=== PATIENT | male | born 1940 | race Caucasian/White ===

== ENCOUNTER 2017-04-23 16:15 | Inpatient (IN) | payer OTHER ==
[~2017-04-23] VITALS: Ht 182.9 cm; Wt 97.0 kg
[2017-04-23] MEDS ORDERED: LIDOCAINE/EPINEPHRINE 1% 20 ML VIAL INFIL ONE (16:45)
[2017-04-23 16:59] LABS: BASO % 0.3 %; BASO ABS # 0.02 K/uL (0-0.2); EOS % 2.1 %; EOS ABS # 0.17 K/uL (0-0.5); HEMATOCRIT 39.6 % (42-52); HEMOGLOBIN 13.5 g/dL (14.0-18.0); IG# 0.02 K/uL (0.00-0.02); LYMPH % 20.7 %; LYMPH ABS # 1.65 K/uL (1.2-3.4); MEAN CELL VOLUME 86.8 fL (80-100); MEAN CORPUSCULAR HEMOGLOBIN 29.6 pg (25-34); MEAN CORPUSCULAR HGB CONC 34.1 g/dl (32-36); MEAN PLATELET VOLUME 11.3 fL (7.4-10.4); MONO % 7.7 %; MONO ABS # 0.61 K/uL (0.11-0.59); NEUT % 68.9 %; PLATELET COUNT 219 K/uL (130-400); RED CELL DISTRIBUTION WIDTH CV 13.9 % (11.5-14.5); RED CELL DISTRIBUTION WIDTH SD 43.7 fL (36.4-46.3); WHITE BLOOD COUNT 7.97 K/uL (4.8-10.8)
[2017-04-23] MEDS ORDERED: LEVO100T7 PO (17:00)
[2017-04-23] MEDS ORDERED: ATOR-24 PO (17:00)
[2017-04-23] MEDS ORDERED: LISI-461 PO (17:00)
[2017-04-23] MEDS ORDERED: AMLO-110 PO (17:00)
[2017-04-23] MEDS ORDERED: CLOP1TAB15 PO (17:00)
[2017-04-23] MEDS ORDERED: CARV12.5 PO (17:00)
[2017-04-23 17:12] LABS: PTT PATIENT 28.3 SECONDS (21.0-31.0)
--- NOTE | 2017-04-23 17:21 | EMERGENCY ROOM VISIT NOTE ---
History Report prepared by Froilan: Deepika Esposito Under the Supervision of: Dr. Lonnie Ching D.O. 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 The patient presents to the ED by EMS. He walks with 2 canes. He was unsteady while walking today and fell, striking his head. Per EMS, there was a large amount of blood on the patient's clothes and at the site of the fall. EMS notes a 5 inch laceration to the back of the patient's head. The patient notes that he has been having intermittent pain in his lower back and legs. He states that he has been dragging his right leg. He has had a cough. He denies any chest pain or SOB. He denies any history of NV or heart murmur. He has not had a tetanus shot. 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 A total of 10 systems reviewed and were otherwise negative. Past Medical & Surgical Medical Problems: (1) Diabetes (2) Hypertension (3) Hypothyroidism (4) ICH (intracerebral hemorrhage) Family History Heart disease Stroke Social History Smoking Status: Former Smoker Marital Status: Occupation Status: retired Current/Historical Medications Scheduled Amlodipine (Norvasc), 5 MG PO DAILY Atorvastatin (Lipitor), 40 MG PO HS Carvedilol (Coreg), 12.5 MG PO BID Clopidogrel (Plavix), 75 MG PO DAILY Levothyroxine Sodium (Levothyroxine Sodium), 1 TAB PO DAILY Lisinopril (Zestril), 10 MG PO DAILY Allergies Coded Allergies: Benzodiazepines (Verified Allergy, Unknown, UNNKNOWN, 04/23/17) INFO FROM [facility] Penicillins (Verified Allergy, Unknown, RASH, 04/23/17) Physical Exam Vital Signs Date Time Temp Pulse Resp B/P (MAP) Pulse Ox O2 Delivery O2 Flow Rate FiO2 2/17/18 20:23 79 26 161/87 97 Room Air 04/23/17 19:50 22 04/23/17 19:20 26 04/23/17 18:50 101 25 04/23/17 18:20 89 24 04/23/17 18:15 84 25 04/23/17 16:45 91 28 04/23/17 16:39 90 04/23/17 16:27 36.7 95 27 142/77 98 Room Air 04/23/17 16:21 142/77 Physical Exam GENERAL: Patient is awake, alert, and somewhat anxious appearing. EYES: The conjunctivae are clear. The pupils are round and reactive. EARS, NOSE, MOUTH AND THROAT: The nose is without any evidence of any deformity. Mucous membranes are moist tongue is midline NECK: The neck is nontender and supple. RESPIRATORY: Lung sounds diminished at both bases. There was no tachypnea or conversational dyspnea noted. CARDIOVASCULAR: Irregular rhythm noted to auscultation. There was a systolic murmur noted to auscultation. GASTROINTESTINAL: The abdomen is soft. Bowel sounds are present in all quadrants. Abdomen is nontender BACK: Diffuse lumbar tenderness to palpation. MUSCULOSKELETAL/EXTREMITIES: There is no evidence of gross deformity full range of motion is noted in the hips and shoulders SKIN: There is pedal edema bilaterally. 8 cm vertical laceration in the occipital scalp. NEUROLOGIC: Patient is awake alert and oriented x3 strength is symmetric but diminished. Left sided facial droop. Medical Decision & Procedures ER Provider Diagnostic Interpretation: X-ray results as stated below per interpretation by me and the radiologist. Radiology results as stated below per my review and radiologist interpretation: CHEST ONE VIEW PORTABLE CLINICAL HISTORY: Abdominal pain. Fall. COMPARISON STUDY: No previous studies for comparison. FINDINGS: There is no pneumothorax or pleural effusion. There is no evidence for pulmonary edema. No airspace opacities are present. Moderate cardiomegaly is noted. 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 IMPRESSION: No acute cardiopulmonary findings. Electronically signed by: Rosalio Bello M.D. 04/23/2017 6:26 PM Dictated Date/Time: 04/23/2017 6:[address] OF THE HEAD WITHOUT CONTRAST CLINICAL HISTORY: Fall. COMPARISON STUDY: No previous studies for comparison. TECHNIQUE: Helical axial images of the head were obtained without IV contrast. Automated exposure control was utilized for the study. A dose lowering technique was utilized adhering to the principles of ALARA. FINDINGS: Note is made of a 9 mm focus of acute hemorrhage within the right parietal cortex. No additional sites of intracranial hemorrhage are present. Ventricular system is unremarkable for age. Basilar cisterns are patent. There are no extra-axial collections. White matter hypodensity suggests small vessel disease. There may be a posterior scalp contusion. There is no calvarial fracture. There are old lacunar infarcts within the bilateral basal ganglia. IMPRESSION: 1. Small hemorrhagic contusion within the right parietal lobe measuring 9 mm. A short-term follow-up head CT in 12 to 24 hours is recommended. 2. No calvarial fracture. Electronically signed by: Rosalio Bello M.D. 04/23/2017 5:41 PM Dictated Date/Time: 04/23/2017 5:[address] OF THE CERVICAL SPINE WITHOUT CONTRAST CLINICAL HISTORY: Fall. COMPARISON STUDY: No previous studies for comparison. TECHNIQUE: Helical axial images of the cervical spine were obtained without IV contrast. Sagittal and coronal reconstructions were viewed. A dose lowering technique was utilized adhering to the principles of ALARA. FINDINGS: Craniocervical junction is intact. There is no acute cervical spine fracture. There is mild leftward curvature of the cervical spine which may be positional. There is moderate multilevel degenerative disc disease and facet arthrosis. There is no prevertebral edema. IMPRESSION: No acute cervical spine fracture or subluxation. Electronically signed by: Rosalio Bello M.D. 04/23/2017 5:43 PM Dictated Date/Time: 04/23/2017 5:[address] OF THE ABDOMEN AND PELVIS WITHOUT CONTRAST CLINICAL HISTORY: Fall. Low back pain. COMPARISON STUDY: No previous studies for comparison. TECHNIQUE: Axial images of the abdomen and pelvis were obtained without IV contrast. Images were reviewed in the axial, sagittal, and coronal planes. A dose lowering technique was utilized adhering to the principles of ALARA. FINDINGS: Visualized portions of the lower chest demonstrate moderate cardiomegaly and moderate dilatation of visualized portions of the ascending aorta that measures up to 4.5 cm. No hemoperitoneum or pneumoperitoneum is present. Evaluation of the abdomen and pelvis is suboptimal on this unenhanced exam. A few water attenuation left renal lesions likely reflect cysts. There may be a 3 mm nonobstructing right renal calculus. There is no evidence for traumatic injury to the liver, spleen, adrenal glands or pancreas on this unenhanced exam. Caliber small large bowel are normal. There is no free fluid. Prostate is moderately enlarged. There is a right-sided hydrocele. No acute lumbar spine or pelvic fractures identified. IMPRESSION: 1. No acute traumatic findings within the abdomen or pelvis on unenhanced exam. 2. Moderate dilatation of visualized portions of the ascending aorta, measuring up to 4.5 cm. Moderate cardiomegaly. Electronically signed by: Rosalio Bello M.D. 04/23/2017 5:54 PM Dictated Date/Time: 04/23/2017 5:47 PM Laboratory Results Test 04/23/17 16:30 04/23/17 18:30 Prothrombin Time 10.9 SECONDS (9.0-12.0) Prothromb Time International Ratio 1.0 (0.9-1.1) Activated Partial Thromboplast Time 28.3 SECONDS (21.0-31.0) Partial Thromboplastin Ratio 1.1 Magnesium Level 2.0 mg/dl (1.8-2.4) Total Bilirubin 0.8 mg/dl (0.2-1) Direct Bilirubin 0.2 mg/dl (0-0.2) Aspartate Amino Transf (AST/SGOT) 19 U/L (15-37) Alanine Aminotransferase (ALT/SGPT) 19 U/L (12-78) Alkaline Phosphatase 81 U/L (45-117) Total Creatine Kinase 115 U/L (39-308) Creatine Kinase MB 1.8 ng/ml (0.5-3.6) Creatine Kinase MB Ratio 1.6 (0-3.0) Pro-B-Type Natriuretic Peptide 665 pg/ml (0-1800) Total Protein 7.8 gm/dl (6.4-8.2) Albumin 3.9 gm/dl (3.4-5.0) Lipase 82 U/L (73-393) Thyroid Stimulating Hormone (TSH) 4.700 uIu/ml (0.300-4.500) Free Thyroxine 1.15 ng/dl (0.80-1.60) Total Triiodothyronine 0.82 ng/ml (0.60-1.81) Laboratory results per my review. Procedure Location: Scalp Total length: 8 cm Complexity: Simple Verbal consent was obtained after the risks and benefits were explained, including but not limited to bleeding, scarring, infection, pain, and bone/ nerve damage. At this time, the risks of the procedure are less than the risks of NOT performing the procedure. A time out was taken and the correct patient and site identified. The scalp was prepped with betadine. The target area was anesthetized with 8 ml of 1% lidocaine without epinephrine. Copious irrigation was performed using saline. The skin was re-prepped with betadine, the hair cleared from the wound, and a sterile field set. The wound was explored for foreign bodies and none found. Debridement was not performed. The wound edges were approximated using 15 surgical tommy in the standard fashion. Hemostasis and excellent approximation was achieved. Antibacterial ointment and a sterile dressing applied. Detailed wound care instructions and signs and symptoms of infection reviewed with the patient. No complications and the patient tolerated the procedure well. ECG Per My Interpretation Indication: other (fall) Rate (beats per minute): 95 Rhythm: atrial fibrillation Findings: other (no PVC, LVH noted by voltage criteria) Comparison ECG Date: no prior available ED Course 1626: The patient was evaluated in room C8. A complete history and physical examination were performed. 1725: The laceration was repaired according to the procedure note above. 1855: Upon reevaluation, the patient is resting comfortably. I discussed results and treatment plan with him. He verbalizes agreement and understanding. The patient will be evaluated for further management and care. 7: [facility] He requests that I speak with neurosurgery in [place]. 1949: I discussed the patient's case [place]. Michelle, [facility] [place]. He thinks the patient should go to a trauma center. 1958: I reevaluated the patient. He does not want to be transferred. 2027: I discussed the patient's case [facility] The patient will be evaluated for further management. Medical Decision Prior records/ancillary studies reviewed. Triage Nursing notes reviewed. Additional history obtained from EMS. The patient's history was concerning for traumatic injury Differential diagnosis: Etiologies such as fracture, dislocation, intra-abdominal, pneumothorax, intrathoracic , intracranial, neurologic, as well as other traumatic pathologies were entertained. The patient is a 76-year-old male who presented to the emergency department by ambulance after a fall. The patient has a very concerning history and that his recently . The patient does see a primary care physician but only sees the primary care physician intermittently and does not take his medications as he is prescribed. He is prescribed Plavix but states he has not taken it in over 2-3 days. The patient appears to be in atrial fibrillation at this time. I am unsure if he is aware of this or if this is new. I discussed the patient's laboratory and radiographic studies with him. He does have significant difficulty ambulating. He was found to have a cerebral contusion. I discussed his case with the on-call [facility] hospitalist I also discussed it with the [facility] neurosurgeon. At this time the neurosurgeon requested that I transfer the patient for formal trauma workup at the patient himself does not wish to be transferred at this time. [facility] in the emergency department for further management and disposition. The patient also appears to have significant difficulty ambulating at this time. I do feel that he has some baseline neurologic deficits but at this time it is difficult to determine if he also had a new CVA given his atrial fibrillation. Head Trauma GCS Score: 15 Medication Reconcilliation Current Medication List: was personally reviewed by me Consults Time Called: 1921 Consulting Physician: Dr. Koo [facility] Returned Call: 1926 I discussed the patient's case with him. He requests that I speak with neurosurgery in [place]. Additional Consults: Time Called: 1929 Consulted Physician: Dr. Michelle, [facility] [place] Returned Call: 1949 Additional Comments: I discussed the patient's case with him. He thinks the patient should go to a trauma center. Time Called: 2019 Consulted Physician: Dr. Koo [facility] Returned Call: 2027 Additional Comments: I discussed the patient's case with him. The patient will be evaluated for further management. Impression Primary Impression: Fall Additional Impressions: Scalp laceration Head injury Cerebral contusion Atrial fibrillation Scribe Attestation The scribe's documentation has been prepared under my direction and personally reviewed by me in its entirety. I confirm that the note above accurately reflects all work, treatment, procedures, and medical decision making performed by me. Departure Information Dispostion Being Evaluated By Hospitalist Referrals No Doctor, Assigned (PCP) Patient Instructions My [facility] Problem Qualifiers Primary Impression: Fall Encounter type: initial encounter Qualified Codes: W19.XXXA - Unspecified fall, initial encounter Additional Impressions: Scalp laceration Encounter type: initial encounter Qualified Codes: S01.01XA - Laceration without foreign body of scalp, initial encounter Head injury Encounter type: initial encounter Qualified Codes: S09.90XA - Unspecified injury of head, initial encounter Cerebral contusion Encounter type: initial encounter Laterality: right Loss of consciousness presence/duration: with LOC of unspecified duration Qualified Codes: S06.319A - Contusion and laceration of right cerebrum with loss of consciousness of unspecified duration, initial encounter Atrial fibrillation Atrial fibrillation type: unspecified Qualified Codes: I48.91 - Unspecified atrial fibrillation
[2017-04-23 17:23] LABS: ALBUMIN 3.9 gm/dl (3.4-5.0); CALCIUM 9.5 mg/dl (8.5-10.1); CREATININE 0.91 mg/dl (0.60-1.40); POTASSIUM 3.8 mmol/L (3.5-5.1)
[2017-04-23 17:30] LABS: CKMB 1.8 ng/ml (0.5-3.6); TOTAL PROTEIN 7.8 gm/dl (6.4-8.2)
--- NOTE | 2017-04-23 17:42 | DIAGNOSTIC IMAGING REPORT ---
CT OF THE HEAD WITHOUT CONTRAST CLINICAL HISTORY: Fall. COMPARISON STUDY: No previous studies for comparison. TECHNIQUE: Helical axial images of the head were obtained without IV contrast. Automated exposure control was utilized for the study. A dose lowering technique was utilized adhering to the principles of ALARA. FINDINGS: Note is made of a 9 mm focus of acute hemorrhage within the right parietal cortex. No additional sites of intracranial hemorrhage are present. Ventricular system is unremarkable for age. Basilar cisterns are patent. There are no extra-axial collections. White matter hypodensity suggests small vessel disease. There may be a posterior scalp contusion. There is no calvarial fracture. There are old lacunar infarcts within the bilateral basal ganglia. IMPRESSION: 1. Small hemorrhagic contusion within the right parietal lobe measuring 9 mm. A short-term follow-up head CT in 12 to 24 hours is recommended. 2. No calvarial fracture. Electronically signed by: Rosalio Bello M.D. 04/23/2017 5:41 PM Dictated Date/Time: 04/23/2017 5:37 PM
--- NOTE | 2017-04-23 17:45 | DIAGNOSTIC IMAGING REPORT ---
CT OF THE CERVICAL SPINE WITHOUT CONTRAST CLINICAL HISTORY: Fall. COMPARISON STUDY: No previous studies for comparison. TECHNIQUE: Helical axial images of the cervical spine were obtained without IV contrast. Sagittal and coronal reconstructions were viewed. A dose lowering technique was utilized adhering to the principles of ALARA. FINDINGS: Craniocervical junction is intact. There is no acute cervical spine fracture. There is mild leftward curvature of the cervical spine which may be positional. There is moderate multilevel degenerative disc disease and facet arthrosis. There is no prevertebral edema. IMPRESSION: No acute cervical spine fracture or subluxation. Electronically signed by: Rosalio Bello M.D. 04/23/2017 5:43 PM Dictated Date/Time: 04/23/2017 5:41 PM
--- NOTE | 2017-04-23 17:56 | DIAGNOSTIC IMAGING REPORT ---
CT OF THE ABDOMEN AND PELVIS WITHOUT CONTRAST CLINICAL HISTORY: Fall. Low back pain. COMPARISON STUDY: No previous studies for comparison. TECHNIQUE: Axial images of the abdomen and pelvis were obtained without IV contrast. Images were reviewed in the axial, sagittal, and coronal planes. A dose lowering technique was utilized adhering to the principles of ALARA. FINDINGS: Visualized portions of the lower chest demonstrate moderate cardiomegaly and moderate dilatation of visualized portions of the ascending aorta that measures up to 4.5 cm. No hemoperitoneum or pneumoperitoneum is present. Evaluation of the abdomen and pelvis is suboptimal on this unenhanced exam. A few water attenuation left renal lesions likely reflect cysts. There may be a 3 mm nonobstructing right renal calculus. There is no evidence for traumatic injury to the liver, spleen, adrenal glands or pancreas on this unenhanced exam. Caliber small large bowel are normal. There is no free fluid. Prostate is moderately enlarged. There is a right-sided hydrocele. No acute lumbar spine or pelvic fractures identified. IMPRESSION: 1. No acute traumatic findings within the abdomen or pelvis on unenhanced exam. 2. Moderate dilatation of visualized portions of the ascending aorta, measuring up to 4.5 cm. Moderate cardiomegaly. Electronically signed by: Rosalio Bello M.D. 04/23/2017 5:54 PM Dictated Date/Time: 04/23/2017 5:47 PM
--- NOTE | 2017-04-23 18:27 | DIAGNOSTIC IMAGING REPORT ---
CHEST ONE VIEW PORTABLE CLINICAL HISTORY: Abdominal pain. Fall. COMPARISON STUDY: No previous studies for comparison. FINDINGS: There is no pneumothorax or pleural effusion. There is no evidence for pulmonary edema. No airspace opacities are present. Moderate cardiomegaly is noted. 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 IMPRESSION: No acute cardiopulmonary findings. Electronically signed by: Rosalio Bello M.D. 04/23/2017 6:26 PM Dictated Date/Time: 04/23/2017 6:25 PM
[2017-04-23] MEDS ORDERED: TRAMADOL HCL 50 MG TAB PO PRN (21:15)
[2017-04-23] MEDS ORDERED: ACETAMINOPHEN 325 MG TAB PO PRN (21:15)
[2017-04-23] MEDS ORDERED: MoRPHine SULFATE 2 MG/ML CARP IV PRN (21:15)
[2017-04-23] MEDS ORDERED: NITROGLYCERIN 0.4 MG SL PER TAB CHARGE SL PRN (21:15)
[2017-04-23] MEDS ORDERED: PHARMACIST DISCHARGE MED REC CONSULT PRN (21:15)
[2017-04-23] MEDS ORDERED: PROCHLORPERAZINE INJ 5 MG in SYRINGE 4 ML IV PRN (21:15)
[2017-04-23 21:30] VITALS: BP 175/93; PULSE 90; TEMP 36.9; O2SAT 99
[2017-04-23] MEDS ORDERED: POTASSIUM CHLORIDE 10 MEQ TABCR PO STA (21:30)
[2017-04-23] MEDS ORDERED: METOPROLOL TARTRATE 25 MG TAB PO ONE (21:33)
[2017-04-23] MEDS ORDERED: ATORVASTATIN 40 MG TAB PO ONE (21:35)
[2017-04-23] MEDS ORDERED: NSS + 20MEQ KCL 1000ML 1,000 ML IV SCH (22:00)
[2017-04-23 22:52] VITALS: BP 175/93; PULSE 90; TEMP 36.9; O2SAT 95; Ht 182.9 cm; Wt 97.0 kg
--- NOTE | 2017-04-23 22:56 | HISTORY & PHYSICAL EXAMINATION ---
DATE OF ADMISSION: 04/23/2017 PRIMARY CARE DOCTOR: Lydia Suarez MD. CHIEF COMPLAINT: Fall. HISTORY OF PRESENT ILLNESS: History obtained from patient and records. 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 This morning patient woke up with R leg weakness causing him to drag his heavy right leg. He subsequently had a fall hitting his head. No syncope, no LOC. No chest pain, no shortness of breath. Unable to take his pills the last few days having ran out of them. Patient brought to the Emergency Room. Scalp wound repaired. CAT scan of the head showed small hemorrhagic contusion in right parietal lobe measuring 9 mm. [place] [facility] [place]. At the Emergency Room, patient was noted to be in AFib on the monitor. MEDICAL HISTORY: As above. February 2012, the patient admitted in [place] for a subacute stroke. Prior to transfer was intubated at [facility] for altered mental status. MRI [place] [facility] [place] showed small focus of restricted diffusion in the right frontal lobe, suspicious infarct in the inferior right occipital lobe. SURGERIES: He has had cataract surgery, mastoid surgery. HOME MEDICATIONS: Include amlodipine, atorvastatin, Coreg, Plavix, levothyroxine, lisinopril. ALLERGIES: BENZODIAZEPINES, PENICILLIN. FAMILY HISTORY: Heart disease, stroke. PERSONAL AND SOCIAL HISTORY: Past tobacco abuse. No chronic intake of alcoholic beverages. 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 Recent . REVIEW OF SYSTEMS: As per HPI. All 10 systems reviewed. All other ROS negative. PHYSICAL EXAMINATION: VITAL SIGNS: Blood pressure was noted to be 179/93, pulse rate 90, RR 24, temperature 36.7, sats 98 on room air. GENERAL: Noted to be obese, comfortable, no respiratory distress, dysarthria chronic. SKIN: Pallor, warm. HEENT: Dressing on the posterior scalp. Pale palpebral conjuctivae. Facial asymmetry, left (chronic) NECK: Supple, nontender. LUNGS: Decreased breath sounds. No tenderness. HEART: RRR, palpable LE pulses. ABDOMEN: Soft, nontender. EXTREMITIES: No edema, no tenderness. No gross deformities. NEUROLOGIC: Coherent. Chronic dysarthria as per patient, Left facial asymmetry. Decreased MMTs right lower extremity 3/5, left 4/5. Gait and stance not assessed. LABORATORY DATA: Hemoglobin 13.5, hematocrit 39.6, white cell count 7.97, platelets 219 . Sodium 139, potassium 3.8, chloride 101, CO2 25, BUN 40, creatinine 0.9, glucose 107. Troponin was 0.112. Chest x-ray, no acute cardiopulmonary findings. CT abdomen and pelvis, cardiomegaly, moderate dilatation of ascending aorta 4.[address], no acute cervical spine fracture or subluxation. EKG as per my interpretation rate 75, NSR, PACs,, T-wave flattening inferior leads ASSESSMENT: 1. Traumatic intracranial hemorrhage secondary to fall 2. right lower extremity weakness preceding fall/head trauma possible recurrent cerebrovascular accident possible cardioembolic phenomenon with new onset atrial fibrillation. Patient also unable to take home Plavix the last few days. 2. 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 3. Hx PVD 4. 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 Prediabetes as per records. 6. Past tobacco abuse. 7. Anemia, possibly from blood loss following traumatic scalp injury. PLAN: PCU, neuro checks MRI/MRA of the brain RE RLE weakness possible recurrent CVA. Antiplatelet, anticoagulation for secondary stroke prevention unfortunately precluded by intracranial hemorrhage for now. May need Neurology eval, additional stroke workup pending MRI results Follow up CT of the head for intracranial hemorrhage. (Patient not interested in transferring to tertiary care center for Neurosurgical evaluation in any circumstance even if it may result in his demise.) Low dose Lopressor for now for rate control for A. fib (Hold patient's Coreg for now for its greater antihypertensive effect given need to optimize cerebral perfusion for a possible CVA.) TTE, Cardio consult RE new onset A. fib PT OT eval DVT prophylaxis, SCDs RE ICH DNR. MTDD
[2017-04-23 23:23] VITALS: BP 138/82; PULSE 93; TEMP 37.1; O2SAT 97
[2017-04-24] VITALS (9 sets, daily range): BP systolic 129–142; BP diastolic 69–78; PULSE 71–82; TEMP 36.5–37.1; O2SAT 95–99
[2017-04-24 00:53] LABS: HEMATOCRIT 38.8 % (42-52); HEMOGLOBIN 13.3 g/dL (14.0-18.0); RETIC COUNT % 0.7 % (0.5-2.0)
[2017-04-24 05:53] LABS: BASO % 0.2 %; BASO ABS # 0.02 K/uL (0-0.2); EOS % 0.3 %; EOS ABS # 0.03 K/uL (0-0.5); HEMOGLOBIN 12.2 g/dL (14.0-18.0); IG# 0.02 K/uL (0.00-0.02); LYMPH % 20.9 %; LYMPH ABS # 1.95 K/uL (1.2-3.4); MEAN CELL VOLUME 85.9 fL (80-100); MEAN CORPUSCULAR HEMOGLOBIN 29.1 pg (25-34); MEAN CORPUSCULAR HGB CONC 33.9 g/dl (32-36); MEAN PLATELET VOLUME 10.5 fL (7.4-10.4); MONO % 6.4 %; NEUT ABS # 6.69 K/uL (1.4-6.5); PLATELET COUNT 202 K/uL (130-400); RED CELL DISTRIBUTION WIDTH CV 13.9 % (11.5-14.5); WHITE BLOOD COUNT 9.31 K/uL (4.8-10.8)
[2017-04-24] MEDS: LEVOTHYROXINE 100 MCG TAB PO SCH (06:04)
[2017-04-24 06:23] LABS: CALCIUM 9.1 mg/dl (8.5-10.1); CREATININE 0.68 mg/dl (0.60-1.40); POTASSIUM 4.1 mmol/L (3.5-5.1)
[2017-04-24] MEDS ORDERED: PNEUMOCOCCAL ADMINISTRATION CHARGE ONE (06:45)
[2017-04-24] MEDS ORDERED: PNEUMOCOCCAL POLYSACCHARIDES 25 MCG/0.5 ML VIAL/SYR IM. ONE (06:45)
[2017-04-24] MEDS ORDERED: METOPROLOL TARTRATE 25 MG TAB PO SCH (09:00)
--- NOTE | 2017-04-24 11:26 | ECHOCARDIOGRAM REPORT ---
*NOTICE TO RECEIVING [employer] This information is strictly Confidential and protected under [place] law. [place] law prohibits you from making any further disclosure of this information unless further disclosure is expressly permitted by the written consent of the person to whom it pertains or is authorized by law. A general authorization for the release of medical or other information is not sufficient for this purpose. Hospital accepts no responsibility if the information is made available to any other person, INCLUDING THE PATIENT. Interpretation Summary * Name: FREDY MARTINEZ Study Date: 04/24/2017 09:32 AM BP: 141/78 mmHg * Patient Location: HR: 76 * : 1940 (M/d/yyyy) Gender: Male Height: 72 in * Age: 76 yrs Ethnicity: CA Weight: 222 lb * Ordering Physician: Joe Koo * Referring Physician: UNKNOWN * Performed By: Joe Ramos RDCS * R * Reason For Study: A-FIB * BSA: 2.2 m2 * -- Conclusions -- * The left ventricle is normal in size. * There is moderate concentric left ventricular hypertrophy. * The basal septum is thickened and angulated consistent with sigmoid septum. * Left ventricular systolic function is normal. * The left ventricular wall motion is normal. * Ejection Fraction = 60-65%. * Grade I diastolic dysfunction, (abnormal relaxation pattern). * Aortic valve sclerosis moderate, without significant aortic valvular stenosis. * Trace aortic regurgitation. * There is mild mitral regurgitation. * The left atrium is moderately dilated. Procedure Details * A complete two-dimensional transthoracic echocardiogram was performed (2D, M-mode, Doppler and color flow Doppler). * The study was technically difficult, but visualization was adequate with the administration of Definity ultrasound contrast. * A contrast injection of Definity was performed to improve assessment of LV function. * Contrast was injected into an intravenous site in the left arm. * One vial of Definity ultrasound contrast was diluted in normal saline to a total volume of 10 ml. A total of '3' ml of solution was administered during imaging. * Lot # [id number] of Definity utilized for procedure. * Expiration date . * The attending nurse who injected the contrast agent was Nurse, RN. Left Ventricle * The left ventricle is normal in size. * There is moderate concentric left ventricular hypertrophy. * The basal septum is thickened and angulated consistent with sigmoid septum. * Ejection Fraction = 60-65%. * Left ventricular systolic function is normal. * The left ventricular wall motion is normal. Right Ventricle * The right ventricle is normal in size and function. Atria * The left atrium is moderately dilated. * Right atrial size is normal. * No ASD detected; PFO is not assessed. Mitral Valve * The mitral valve anatomy is normal. * There is no mitral valve stenosis. * There is mild mitral regurgitation. Tricuspid Valve * The tricuspid valve is not well visualized, but is grossly normal. * There is no tricuspid stenosis. * There is trace tricuspid regurgitation. * Doppler findings do not suggest pulmonary hypertension. Aortic Valve * The aortic valve is trileaflet. * Aortic valve sclerosis moderate, without significant aortic valvular stenosis. * Trace aortic regurgitation. Pulmonic Valve * The pulmonic valve is not well visualized. Great Vessels * The aortic root is normal size. Pericardium/Pleural * There is no pericardial effusion. Great Vessels * Normal inferior vena cava diameter and respiratory variation suggests normal central venous pressure. Left Ventricular Diastolic Function * Grade I diastolic dysfunction, (abnormal relaxation pattern). MMode 2D Measurements and Calculations IVSd 1.2 cm IVSs 1.8 cm LVIDd 4.8 cm LVIDs 2.8 cm LVPWd 1.2 cm LVPWs 1.8 cm IVS/LVPW 1.0 FS 41.2 % EDV(Teich) 108.9 ml ESV(Teich) 30.6 ml EF(Teich) 71.9 % EDV(cubed) 112.4 ml ESV(cubed) 22.9 ml EF(cubed) 79.6 % % IVS thick 56.3 % % LVPW thick 59.6 % LV mass(C)d 211.0 grams LV mass(C)dI 94.8 grams/m\S\2 LV mass(C)s 210.9 grams LV mass(C)sI 94.7 grams/m\S\2 SV(Teich) 78.3 ml SI(Teich) 35.2 ml/m\S\2 SV(cubed) 89.5 ml SI(cubed) 40.2 ml/m\S\2 EPSS 0.55 cm Ao root diam 3.3 cm Ao root area 8.4 cm\S\2 ACS 2.4 cm LA dimension 4.9 cm asc Aorta Diam 3.8 cm LA/Ao 1.5 LVOT diam 2.2 cm LVOT area 3.7 cm\S\2 LVAd ap4 29.8 cm\S\2 LVLd ap4 7.5 cm EDV(MOD-sp4) 99.5 ml EDV(sp4-el) 100.7 ml LVAs ap4 16.0 cm\S\2 LVLs ap4 6.8 cm ESV(MOD-sp4) 31.4 ml ESV(sp4-el) 32.3 ml EF(MOD-sp4) 68.5 % EF(sp4-el) 68.0 % LVAd ap2 34.7 cm\S\2 LVLd ap2 8.7 cm EDV(MOD-sp2) 115.4 ml EDV(sp2-el) 117.5 ml LVAs ap2 18.5 cm\S\2 LVLs ap2 7.9 cm ESV(MOD-sp2) 36.0 ml ESV(sp2-el) 37.1 ml EF(MOD-sp2) 68.8 % EF(sp2-el) 68.4 % LVLd %diff 13.8 % EDV(MOD-bp) 114.7 ml LVLs %diff 14.1 % ESV(MOD-bp) 35.6 ml EF(MOD-bp) 69.0 % SV(MOD-sp4) 68.1 ml SI(MOD-sp4) 30.6 ml/m\S\2 SV(MOD-sp2) 79.4 ml SI(MOD-sp2) 35.7 ml/m\S\2 SV(MOD-bp) 79.2 ml SI(MOD-bp) 35.6 ml/m\S\2 SV(sp4-el) 68.5 ml SI(sp4-el) 30.8 ml/m\S\2 SV(sp2-el) 80.4 ml SI(sp2-el) 36.1 ml/m\S\2 Doppler Measurements and Calculations MV E max flynn 87.2 cm/sec MV A max flynn 112.7 cm/sec MV E/A 0.77 MV dec time 0.23 sec Ao V2 max 133.3 cm/sec Ao max PG 7.1 mmHg Ao max PG (full) 2.3 mmHg SHANEKA(V,A) 3.0 cm\S\2 SHANEKA(V,D) 3.0 cm\S\2 LV V1 max PG 4.8 mmHg LV V1 max 109.7 cm/sec PA V2 max 107.8 cm/sec PA max PG 4.7 mmHg
[2017-04-24] MEDS ORDERED: CARVEDILOL 12.5 MG TAB PO ONE (11:28)
--- NOTE | 2017-04-24 11:40 | DIAGNOSTIC IMAGING REPORT ---
CT OF THE HEAD WITHOUT CONTRAST CLINICAL HISTORY: Follow up intracranial hemorrhage. COMPARISON STUDY: Head CT April 23, 2017. CT DOSE: 614.27 mGy.cm TECHNIQUE: Helical axial images of the head were obtained without IV contrast. Automated exposure control was utilized for the study. A dose lowering technique was utilized adhering to the principles of ALARA. FINDINGS: A 9 mm focus of hemorrhage within the right parietal lobe is unchanged since exam of April 23, 2017. No additional sites of intracranial hemorrhage are present. Ventricular system is unremarkable for age. Basilar cisterns are patent. There are no extra-axial collections. White matter hypodensity suggests small vessel disease. There are bilateral basal ganglia lacunar infarcts. A posterior scalp contusion and laceration with skin tommy is noted. There is no calvarial fracture. IMPRESSION: 1. No change in a 9 mm hemorrhagic focus within the right parietal lobe since prior head CT. This likely reflects a hemorrhagic contusion given the history of trauma. Imaging follow up to ensure resolution is recommended. 2. Posterior scalp contusion and laceration. No calvarial fracture. Electronically signed by: Rosalio Bello M.D. 04/24/2017 11:39 AM Dictated Date/Time: 04/24/2017 11:36 AM
--- NOTE | 2017-04-24 11:45 | DIAGNOSTIC IMAGING REPORT ---
MRI OF THE BRAIN WITHOUT CONTRAST CLINICAL HISTORY: Stroke COMPARISON STUDY: Head CT April 23, 2017. TECHNIQUE: Utilizing a 1.5 Danielle magnet and dedicated coil, multiplanar, multiecho imaging of the brain was performed without IV contrast. FINDINGS: Note is made of a small focus of restricted diffusion within the periventricular left frontal lobe shown on axial image 17 and 18 of the diffusion-weighted sequence. This suggests an acute infarct. No additional sites of acute infarction are present. There are old bilateral basal ganglia lacunar infarcts. Ventricular system dilatation is likely due to atrophy. The basilar cisterns are patent. There are no extra axial collections. A 9 mm right parietal lobe focus of signal abnormality with hypointensity on the gradient echo image corresponds to the small focus of hemorrhage on head CT. No additional sites of intracranial hemorrhage are present. Orbits are unremarkable. White matter T2 hypertense foci suggest extensive small vessel disease. IMPRESSION: 1. Small acute infarct within the periventricular left frontal lobe. No mass effect. 2. 9 mm right parietal lobe focus of signal abnormality which corresponds to the focus of hemorrhage on prior head CT. This favors a small hemorrhagic contusion. Imaging follow up to ensure resolution is recommended. Electronically signed by: Rosalio Bello M.D. 04/24/2017 11:43 AM Dictated Date/Time: 04/24/2017 11:39 AM
--- NOTE | 2017-04-24 13:17 | CARDIOLOGY CONSULTATION ---
DATE OF CONSULTATION: 04/24/2017 REFERRING PHYSICIANS: Joe Santa MD and Norberto Mcgowan DO. PRIMARY CARE PHYSICIAN: Lydia Suarez MD. INDICATIONS: Intracranial hemorrhage, atrial arrhythmia. HISTORY OF PRESENT ILLNESS: The patient is a 76-year-old male without prior history of cardiac disease. His past medical history per review of records and discussion with the patient is notable for longstanding hypertension, hypothyroidism, past history of possible TIA or stroke with basilar artery stenosis identified in 2011, on chronic antiplatelet therapy with Plavix; type 2 diabetes mellitus, diet controlled; chronic left facial palsy, dyslipidemia. The patient presents this admission by his description in records having suffered multiple falls over a period of 3-4 days. He usually walks with 2 canes and felt the right leg may have been weak, fell striking his head. A 5-inch significant laceration to the occiput. The patient notes no specific syncope. Notes no chest pain. Notes no tachypalpitations that he has been aware of. Denies orthopnea, PND, or peripheral edema. Appetite and weight have been stable. He has not been aware of any bleeding difficulties, melena, or hematochezia. He does note that he ran out of antiplatelet therapy due to inability to obtain meds and switch on pharmacy provider. He notes no recent fevers, chills, or infections. CT scan evaluation on admission reveals small hemorrhagic contusion within the right parietal lobe. Monitor strips reviewed from ER visit demonstrated intermittent atrial tachycardia, distinct atrial fibrillation by my observation and review with monitor technicians reveals no distinct atrial fibrillation. He does have frequent atrial and ventricular ectopy as well as one 4-beat run of nonsustained ventricular tachycardia this morning. REVIEW OF SYSTEMS: Otherwise negative. ALLERGIES: BENZODIAZEPINE AND PENICILLIN. MEDICATIONS: Prior to hospitalization, amlodipine 5 mg p.o. daily, atorvastatin 40 mg p.o. daily, carvedilol 12.5 mg b.i.d., clopidogrel 75 mg p.o. daily, levothyroxine 100 mcg p.o. daily, and lisinopril 10 mg p.o. daily. PAST SURGICAL HISTORY: Notable for prior mastoidectomy as a child, past cataract extraction. FAMILY HISTORY: Notable for longevity in mother. Brother and sister with history of ischemic heart disease. 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 He is a nonsmoker since 1984. He uses occasional alcoholic beverages. PHYSICAL EXAMINATION: VITAL SIGNS: Heart rate is 82, blood pressure is 138/73. HEENT: Normocephalic. There is a stapled occipital laceration. Nares without discharge. Throat was clear. NECK: There is no jugular venous distention. LUNGS: Reveal mildly diminished breath sounds, but are predominantly clear. CARDIOVASCULAR: Regular with atrial ectopic beats audible with grade 1/6 systolic murmurs. No diastolic murmur. ABDOMEN: Obese, soft, nontender. There is no palpable hepatosplenomegaly. There is no hepatojugular reflux. EXTREMITIES: Without cyanosis or clubbing. There is no peripheral edema. There are intact distal pulses at 2/4. DIAGNOSTIC DATA: EKG on ER presentation revealed sinus rhythm, rate of 76 with frequent atrial ectopic beats. Second EKG revealed similar findings and sinus tachycardia with frequent atrial ectopic beats, rare ventricular ectopic beats. EKG this morning reveals sinus rhythm with atrial complexes with a rate of 76. Review of telemetry reveals no overt atrial fibrillation with sinus mechanism and frequent atrial ectopy and occasional ventricular ectopic beats aware, one 4-beat run of ventricular tachycardia earlier this morning. LABORATORY STUDIES: Sodium is 138, potassium is 4.1, chloride is 105, bicarbonate is 26, BUN is 13, and creatinine is 0.68. Cholesterol was 162 with an LDL of 112, HDL 33. TSH is 4.7 with T4 level of 1.15. White cell count is 9.3, hemoglobin is 12.2, and hematocrit is 36.0. Chest x-ray on presentation revealed no infiltrate or edema. Head CT as described demonstrated focal hemorrhagic contusion, right parietal lobe. MRI is pending. IMPRESSION: A 76-year-old male with a history of longstanding hypertension, past stroke in 2011 with basal artery stenosis identified at that time per report, has been off medications intermittently per his own description due to difficulty obtaining meds with change in pharmacy provider, presents now after a fall and hemorrhagic contusion. Telemetry does not reveal distinct atrial fibrillation, though he remains at risk for such. Echocardiogram today demonstrates preserved left ventricular function. Troponins are elevated, but flat, likely reflect the patient's acute injury. Review of MRI, continue to maintain telemetry. Anticoagulation is currently contraindicated and no overt indications for doing so in the absence of atrial fibrillation on review of records. Although we will continue to follow the patient, we would recommend discontinuing ordered metoprolol and returning to usual medication of carvedilol. First dose ordered this morning. Amlodipine was held on admission used for hypertension. I agree withholding this medication as clinical course proceeds. Await MRI results and Neurology input regarding timing of resuming Plavix. MTDD
--- NOTE | 2017-04-24 13:24 | DIAGNOSTIC IMAGING REPORT ---
MRA OF THE INTRACRANIAL CIRCULATION WITHOUT CONTRAST CLINICAL HISTORY: Stroke - Attention to [facility] COMPARISON STUDY: None. TECHNIQUE: Utilizing a 1.5 Danielle magnet and 3-D [id number] technique, unenhanced MRA of the intracranial circulation was obtained. FINDINGS: The bilateral M1, M2, A1 and A2 segments are patent. There is no abrupt vessel cut off. There is persistence of the left posterior cerebral artery. No intracranial aneurysm is slight identified. There is moderate to severe stenosis of the mid basilar artery. No additional significant stenoses are identified. The right vertebral artery likely ends in PICA. IMPRESSION: 1. No intracranial aneurysm or abrupt vessel cut off. 2. Moderate to severe stenosis of the mid basilar artery. 3. persistence of the left posterior cerebral artery. Electronically signed by: Rosalio Bello M.D. 04/24/2017 1:23 PM Dictated Date/Time: 04/24/2017 1:20 PM
--- NOTE | 2017-04-24 14:52 | NEUROLOGY CONSULTATION ---
DATE OF CONSULTATION: 04/24/2017 REASON FOR CONSULTATION: Stroke and intracranial hemorrhage. The patient as well as the medical record service is the chief historian. He is a 76-year-old male with hypertension and hyperlipidemia who had a fall 1 day prior to admission. Admission was on 04/23/2017. The patient indicated on the day of admission, he became unsteady, fell and struck his head. There was a large amount of scalp bleeding, but the patient did not contact 911 until the following day because of ongoing soft tissue bleeding. He apparently falls intermittently. He attributed this fall to a sense of weakness in the right lower extremity. He denied any other neurologic symptoms. In the weeks leading up to this event, the patient's medication use has been inconsistent. He reports he takes Norvasc, Lipitor, Coreg, Plavix, levothyroxine, and Zestril at home as well as p.r.n. [id number] pain medications. He had been out of medications for about 2 or 3 weeks, but he was probably continuing to take his pain reliever. Since admission, he notes that there is persistent weakness of the right lower extremity. He typically has a mild frontal headache each morning. This appears unchanged. He denies a prior history of stroke or transient ischemic attack. It sounds as if there have been some very difficult social issues in the past. His 14 weeks ago. He is at odds with a stepson and his [id number] within the last several weeks. The patient makes it sound as if he has no additional help in the home. 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 His prior medical history is notable for hypertension and prediabetes. He is said to have had a stroke in the past, peripheral vascular disease, hypothyroidism, remote tobacco abuse. For further details, in February 2012, the patient was admitted to [facility] for subacute stroke. There is a small focus restricted diffusion in the right frontal lobe and suspicious for infarct in the inferior right occipital lobe. SURGERIES: Cataract and mastoid. HOME MEDICINES: As above. ALLERGIES: BENZODIAZEPINE AND PENICILLIN. FAMILY HISTORY: Heart disease or stroke. SOCIAL HISTORY: Stopped smoking in the , would drink 1-2 glasses of alcoholic beverages every several days. REVIEW OF SYSTEMS: As per HPI. Additionally, the patient has been having peripheral edema. LABORATORY DATABASE: EKG shows sinus rhythm with premature atrial contraction. Subsequent monitoring reveals atrial fibrillation. CT of the head shows a stable small hemorrhagic contusion in the right parietal lobe measuring 9 mm. This was unchanged. On April 24, MRI of the brain, which I have reviewed, shows the right parietal hemorrhage as well as a small acute infarct in the periventricular left frontal lobe without mass effect. Labs are notable for a hemoglobin and hematocrit of 13.5/39.6, platelet count 219. PT 10.9, PTT 28.3. Chemistry profile on admission, random glucose 107. Troponin 0.112. TSH 4.7, free T4 1.15. Urinalysis 1+ ketones. CURRENT MEDICATIONS: Atorvastatin, carvedilol, levothyroxine, Tylenol, Nitrostat, tramadol, morphine p.r.n., prochlorperazine. PHYSICAL EXAMINATION: VITAL SIGNS: 36.8, 76, 18, 141/76, 99% saturation. GENERAL: The patient is awake and alert, oriented to place, person, month, but not the year. No right/left confusion or aphasia is noted. He is somewhat tangential. NECK: There are no carotid bruits. HEART: Has a regular rate and rhythm. No murmurs are noted. He has a healing laceration from the vertex to mid occiput. NEUROLOGIC: Pupils are equal, round, reactive to light. Optic nerves are unremarkable. Normal aldana and motility. There is left peripheral facial weakness. Speech is mildly dysarthric. Tongue is midline. No facial anesthesia is noted. There is mild weakness of the right upper extremity. He is limited in the left upper extremity secondary to shoulder pathology. Right lower extremity is about 4 proximally, 4+ distally. There is a minor decrease in right rapid alternating movements. He is mildly clumsy on right [id number] and sensation appears to be diminished at least to temperature on the right. Gait was not tested. IMPRESSION: This patient has an acute left frontal infarction, which actually appears small vessel, having fallen and now has a traumatic right parietal hemorrhage, which contraindicates currently antiplatelet therapy as well as anticoagulant therapy. To complete his workup, I would recommend a carotid ultrasound. I would repeat a CT of the head tomorrow and then likely in 1 week, to see if it is safe to resume antiplatelet therapy. The patient does not appear to be a good candidate for anticoagulant therapy because of a history of falls and apparent medication noncompliance. We will follow with you. MANUEL
--- NOTE | 2017-04-24 15:54 | Progress Note ---
Subjective Date of Service: Apr 24, 2017. Subjective Pt evaluation today including: conversation w/ patient, conversation w/ family , physical exam, lab review, review of studies, review of inpatient medication list Saw/examined the patient in room 202 No problems/issues to note currently, eager to get home +RLE numbness/tingling/weakness Problem List Medical Problems: (1) Atrial fibrillation Status: Acute (2) Cerebral contusion Status: Acute (3) Fall Status: Acute (4) Head injury Status: Acute (5) Scalp laceration Status: Acute Review of Systems Constitutional: No fever, No chills Respiratory: No cough, No sputum, No shortness of breath Cardiac: No chest pain Neurologic: + weakness, + numbness/tingling Heme: No abnormal bleeding/bruising Medications Current Inpatient Medications Medications (Trade) Dose Ordered Sig/Ruddy Route Start Time Stop Time Status Last Admin Dose Admin Acetaminophen (Tylenol Tab) 650 mg Q4H PRN PO 04/23/17 21:15 05/23/17 21:14 Nitroglycerin (Nitrostat Tab) 0.4 mg UD PRN SL 04/23/17 21:15 05/23/17 21:14 Tramadol HCl (Ultram Tab) 25 mg Q6H PRN PO 04/23/17 21:15 05/23/17 21:14 Morphine Sulfate (MoRPHine SULFATE INJ) 4 mg Q3H PRN IV 04/23/17 21:15 05/07/17 21:14 Prochlorperazine Edisylate 5 mg/ Syringe 5 ml @ 5 mls/min Q6H PRN IV 04/23/17 21:15 05/23/17 21:14 Atorvastatin Calcium (Lipitor Tab) 40 mg HS PO 04/24/17 21:00 05/24/17 20:59 Levothyroxine Sodium (Synthroid Tab) 100 mcg DAILYBB PO 04/24/17 06:00 05/24/17 06:59 04/24/17 06:04 100 MCG Miscellaneous Information (Pharmacist Discharge Med Rec Consult) 1 ea UD PRN N/A 04/23/17 21:15 05/23/17 21:14 Carvedilol (Coreg Tab) 12.5 mg BID PO 04/24/17 21:00 05/24/17 20:59 Objective Vital Signs Date Time Temp Pulse Resp B/P (MAP) Pulse Ox O2 Delivery O2 Flow Rate FiO2 04/24/17 14:42 36.6 76 19 129/74 (92) 97 Room Air 04/24/17 12:00 36.8 76 18 141/76 (97) 99 04/24/17 12:00 Room Air 04/24/17 08:00 Room Air 04/24/17 07:56 36.5 82 98 138/73 (94) 96 04/24/17 04:00 95 Room Air 04/24/17 03:47 37.0 76 18 141/78 (99) 97 Room Air 04/24/17 00:00 95 Room Air 04/23/17 23:23 37.1 93 18 138/82 (100) 97 Room Air 04/23/17 22:52 36.9 90 22 175/93 95 Room Air 04/23/17 21:30 36.9 90 22 175/93 (120) 99 Room Air 04/23/17 21:15 79 26 161/87 97 04/23/17 20:23 79 26 161/87 97 Room Air 04/23/17 19:50 22 04/23/17 19:20 26 04/23/17 18:50 101 25 04/23/17 18:20 89 24 04/23/17 18:15 84 25 04/23/17 16:45 91 28 04/23/17 16:39 90 04/23/17 16:27 36.7 95 27 142/77 98 Room Air 04/23/17 16:21 142/77 Physical Exam General Appearance: no apparent distress Respiratory/Chest: lungs clear, normal breath sounds, no respiratory distress, no accessory muscle use Cardiovascular: regular rate, rhythm, no edema, no murmur Neurologic/Psychiatric: 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 as 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, no motor/sensory deficits, alert, normal mood/affect, + facial droop (chronic L sided) Laboratory Results Last 24 Hours Test 04/23/17 16:30 04/23/17 18:30 04/24/17 00:43 04/24/17 00:50 White Blood Count 7.97 K/uL Red Blood Count 4.56 M/uL Hemoglobin 13.5 g/dL 13.3 g/dL Hematocrit 39.6 % 38.8 % Mean Corpuscular Volume 86.8 fL Mean Corpuscular Hemoglobin 29.6 pg Mean Corpuscular Hemoglobin Concent 34.1 g/dl Platelet Count 219 K/uL Mean Platelet Volume 11.3 fL Neutrophils (%) (Auto) 68.9 % Lymphocytes (%) (Auto) 20.7 % Monocytes (%) (Auto) 7.7 % Eosinophils (%) (Auto) 2.1 % Basophils (%) (Auto) 0.3 % Neutrophils # (Auto) 5.50 K/uL Lymphocytes # (Auto) 1.65 K/uL Monocytes # (Auto) 0.61 K/uL Eosinophils # (Auto) 0.17 K/uL Basophils # (Auto) 0.02 K/uL RDW Standard Deviation 43.7 fL RDW Coefficient of Variation 13.9 % Immature Granulocyte % (Auto) 0.3 % Immature Granulocyte # (Auto) 0.02 K/uL Prothrombin Time 10.9 SECONDS Prothromb Time International Ratio 1.0 Activated Partial Thromboplast Time 28.3 SECONDS Partial Thromboplastin Ratio 1.1 Sodium Level 139 mmol/L Potassium Level 3.8 mmol/L Chloride Level 101 mmol/L Carbon Dioxide Level 25 mmol/L Anion Gap 13.0 mmol/L Blood Urea Nitrogen 14 mg/dl Creatinine 0.91 mg/dl Est Creatinine Clear Calc Drug Dose 82.3 ml/min Estimated GFR () 93.2 Estimated GFR (Non- 80.4 BUN/Creatinine Ratio 15.9 Random Glucose 107 mg/dl Calcium Level 9.5 mg/dl Magnesium Level 2.0 mg/dl Total Iron Binding Capacity 382 mcg/dl 335 mcg/dl Total Bilirubin 0.8 mg/dl Direct Bilirubin 0.2 mg/dl Aspartate Amino Transf (AST/SGOT) 19 U/L Alanine Aminotransferase (ALT/SGPT) 19 U/L Alkaline Phosphatase 81 U/L Total Creatine Kinase 115 U/L Creatine Kinase MB 1.8 ng/ml Creatine Kinase MB Ratio 1.6 Troponin I 0.112 ng/ml 0.259 ng/ml Pro-B-Type Natriuretic Peptide 665 pg/ml Total Protein 7.8 gm/dl Albumin 3.9 gm/dl Lipase 82 U/L Thyroid Stimulating Hormone (TSH) 4.700 uIu/ml Free Thyroxine 1.15 ng/dl Total Triiodothyronine 0.82 ng/ml Absolute Reticulocyte Count 0.03 10^6/uL Percent Reticulocyte Count 0.7 % Iron Level 72 mcg/dl Transferrin 256 mg/dl Transferrin % Saturation 20 % Ferritin 46.5 ng/ml Vitamin B12 Level 357 pg/mL Folate 20.24 ng/mL Urine Color DK YELLOW Urine Appearance CLEAR Urine pH 7.0 Urine Specific [place] 1.022 Urine Protein NEG Urine Glucose (UA) NEG Urine Ketones 1+ Urine Occult Blood NEG Urine Nitrite NEG Urine Bilirubin NEG Urine Urobilinogen NEG Urine Leukocyte Esterase NEG Test 04/24/17 05:11 White Blood Count 9.31 K/uL Red Blood Count 4.19 M/uL Hemoglobin 12.2 g/dL Hematocrit 36.0 % Mean Corpuscular Volume 85.9 fL Mean Corpuscular Hemoglobin 29.1 pg Mean Corpuscular Hemoglobin Concent 33.9 g/dl Platelet Count 202 K/uL Mean Platelet Volume 10.5 fL Neutrophils (%) (Auto) 72.0 % Lymphocytes (%) (Auto) 20.9 % Monocytes (%) (Auto) 6.4 % Eosinophils (%) (Auto) 0.3 % Basophils (%) (Auto) 0.2 % Neutrophils # (Auto) 6.69 K/uL Lymphocytes # (Auto) 1.95 K/uL Monocytes # (Auto) 0.60 K/uL Eosinophils # (Auto) 0.03 K/uL Basophils # (Auto) 0.02 K/uL RDW Standard Deviation 43.0 fL RDW Coefficient of Variation 13.9 % Immature Granulocyte % (Auto) 0.2 % Immature Granulocyte # (Auto) 0.02 K/uL Sodium Level 138 mmol/L Potassium Level 4.1 mmol/L Chloride Level 105 mmol/L Carbon Dioxide Level 26 mmol/L Anion Gap 7.0 mmol/L Blood Urea Nitrogen 13 mg/dl Creatinine 0.68 mg/dl Est Creatinine Clear Calc Drug Dose 110.1 ml/min Estimated GFR () 106.0 Estimated GFR (Non- 91.5 BUN/Creatinine Ratio 18.9 Random Glucose 93 mg/dl Calcium Level 9.1 mg/dl Troponin I 0.202 ng/ml Triglycerides Level 83 mg/dl Cholesterol Level 162 mg/dl HDL Cholesterol 33 mg/dl LDL Cholesterol, Calculated 112 mg/dl VLDL Cholesterol, Calculated 17 mg/dl Cholesterol/HDL Ratio 4.9 Assessment and Plan This is a 76 year old male with a PMH of previous CVA, PVD, hx. 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
[2017-04-24] MEDS: CARVEDILOL 12.5 MG TAB PO SCH (21:15)
[2017-04-24] MEDS: ATORVASTATIN 40 MG TAB PO SCH (21:15)
[2017-04-25] VITALS (7 sets, daily range): BP systolic 97–140; BP diastolic 63–78; PULSE 50–74; TEMP 36.3–37.1; O2SAT 97–99
[2017-04-25 05:33] LABS: BASO % 0.3 %; BASO ABS # 0.03 K/uL (0-0.2); EOS % 2.8 %; EOS ABS # 0.24 K/uL (0-0.5); HEMATOCRIT 33.1 % (42-52); HEMOGLOBIN 11.3 g/dL (14.0-18.0); IG# 0.02 K/uL (0.00-0.02); LYMPH % 28.2 %; LYMPH ABS # 2.45 K/uL (1.2-3.4); MEAN CELL VOLUME 85.8 fL (80-100); MEAN CORPUSCULAR HEMOGLOBIN 29.3 pg (25-34); MEAN CORPUSCULAR HGB CONC 34.1 g/dl (32-36); MEAN PLATELET VOLUME 10.9 fL (7.4-10.4); MONO % 10.6 %; MONO ABS # 0.92 K/uL (0.11-0.59); NEUT % 57.9 %; NEUT ABS # 5.04 K/uL (1.4-6.5); PLATELET COUNT 179 K/uL (130-400); RED CELL DISTRIBUTION WIDTH CV 13.9 % (11.5-14.5); RED CELL DISTRIBUTION WIDTH SD 43.4 fL (36.4-46.3)
[2017-04-25 05:59] LABS: CALCIUM 8.7 mg/dl (8.5-10.1); CREATININE 0.78 mg/dl (0.60-1.40); POTASSIUM 3.9 mmol/L (3.5-5.1)
[2017-04-25] MEDS: LEVOTHYROXINE 100 MCG TAB PO SCH (06:04)
[2017-04-25] MEDS: CARVEDILOL 12.5 MG TAB PO SCH ×2 (08:52→19:09)
--- NOTE | 2017-04-25 10:18 | PROGRESS NOTE ---
DATE: 04/25/2017 CARDIOLOGY CONSULTATION FOLLOWUP NOTE The patient seen and examined. Chart, medications, telemetry reviewed. SUBJECTIVE: The patient looks improved from day prior. Sitting out of bed in chair. Notes no chest pains, dizziness, lightheadedness, syncope or near syncope. OBJECTIVE: VITAL SIGNS: Heart rate is 50, blood pressure 132/68. Telemetry reveals sinus rhythm with intermittent atrial and ventricular ectopy. There is no atrial fibrillation. HEENT: Normocephalic with healing traumatic injury laceration. LUNGS: Reveal mildly diminished breath sounds. CARDIOVASCULAR: Regular with audible ectopy. There is no S3 gallop. ABDOMEN: Soft, obese, nontender. EXTREMITIES: Revealed no significant edema. LABORATORY STUDIES: Sodium is 136, potassium is 3.9, chloride is 23, bicarbonate is 25, BUN is 20, and creatinine is 0.78. 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 MRI demonstrates small acute infarct periventricular frontal lobe mass effect 9 mm right parietal lobe with hemorrhagic. IMPRESSION AND PLAN: A 76-year-old male admitted after multiple falls and contusion, possible recent stroke, question were raised regarding atrial fibrillation on telemetry in the Emergency Room, not confirmed. He certainly remains at risk for such. He has resumed usual medications including carvedilol, would recommend supplementing potassium at 10 mEq daily, event monitor post-hospital discharge. No other adjustments made. Usual medications resumed including carvedilol; clopidogrel remains on hold due to hemorrhagic injury.
[2017-04-25] MEDS ORDERED: POTASSIUM CHLORIDE 10 MEQ TABCR PO ONE (10:30)
--- NOTE | 2017-04-25 10:46 | Progress Note ---
Subjective Date of Service: Apr 25, 2017. Subjective Pt evaluation today including: conversation w/ patient, physical exam, lab review, review of studies, review of inpatient medication list Saw/examined the patient in room 202 He's doing well Wants to go home Did not get his carotid ultrasound or head CT this morning because has eating; will be rescheduled for around 11:30AM Denies any other symptoms; states he needs a walker on discharge Problem List Medical Problems: (1) Atrial fibrillation Status: Acute (2) Cerebral contusion Status: Acute (3) Fall Status: Acute (4) Head injury Status: Acute (5) Scalp laceration Status: Acute Review of Systems Constitutional: + weakness, No fever, No chills Respiratory: No cough, No sputum, No wheezing, No shortness of breath, No dyspnea on exertion, No dyspnea at rest, No hemoptysis Cardiac: No chest pain Abdomen: No pain, No nausea, No vomiting, No diarrhea, No constipation, No GI bleeding Neurologic: + weakness, + balance problems, No memory loss, No paralysis, No numbness/tingling, No vertigo Heme: No abnormal bleeding/bruising Objective Vital Signs Date Time Temp Pulse Resp B/P (MAP) Pulse Ox O2 Delivery O2 Flow Rate FiO2 04/25/17 08:02 36.5 50 19 132/68 (89) 99 Room Air 04/25/17 08:00 Room Air 04/25/17 04:02 98 Room Air 04/25/17 03:03 36.5 63 23 140/73 (95) 97 Room Air 04/24/17 23:59 98 Room Air 04/24/17 23:06 37.1 74 24 142/71 (94) 98 Room Air 04/24/17 20:05 36.6 71 20 142/69 (93) 97 Room Air 04/24/17 20:00 Room Air 04/24/17 16:00 Room Air 04/24/17 14:42 36.6 76 19 129/74 (92) 97 Room Air 04/24/17 12:00 36.8 76 18 141/76 (97) 99 04/24/17 12:00 Room Air Physical Exam General Appearance: no apparent distress ENT: + pertinent finding (chronic facial droop) Respiratory/Chest: chest non-tender, lungs clear, normal breath sounds, no respiratory distress, no accessory muscle use Cardiovascular: regular rate, rhythm, no edema, no murmur Abdomen: normal bowel sounds, non tender, soft Neurologic/Psychiatric: no motor/sensory deficits, alert, normal mood/affect Laboratory Results Last 24 Hours Test 04/25/17 04:41 White Blood Count 8.70 K/uL Red Blood Count 3.86 M/uL Hemoglobin 11.3 g/dL Hematocrit 33.1 % Mean Corpuscular Volume 85.8 fL Mean Corpuscular Hemoglobin 29.3 pg Mean Corpuscular Hemoglobin Concent 34.1 g/dl Platelet Count 179 K/uL Mean Platelet Volume 10.9 fL Neutrophils (%) (Auto) 57.9 % Lymphocytes (%) (Auto) 28.2 % Monocytes (%) (Auto) 10.6 % Eosinophils (%) (Auto) 2.8 % Basophils (%) (Auto) 0.3 % Neutrophils # (Auto) 5.04 K/uL Lymphocytes # (Auto) 2.45 K/uL Monocytes # (Auto) 0.92 K/uL Eosinophils # (Auto) 0.24 K/uL Basophils # (Auto) 0.03 K/uL RDW Standard Deviation 43.4 fL RDW Coefficient of Variation 13.9 % Immature Granulocyte % (Auto) 0.2 % Immature Granulocyte # (Auto) 0.02 K/uL Sodium Level 136 mmol/L Potassium Level 3.9 mmol/L Chloride Level 103 mmol/L Carbon Dioxide Level 25 mmol/L Anion Gap 8.0 mmol/L Blood Urea Nitrogen 20 mg/dl Creatinine 0.78 mg/dl Est Creatinine Clear Calc Drug Dose 96.0 ml/min Estimated GFR () 100.2 Estimated GFR (Non- 86.5 BUN/Creatinine Ratio 26.0 Random Glucose 96 mg/dl Calcium Level 8.7 mg/dl Assessment and Plan This is a 76 year old male with a PMH of previous CVA, PVD, hx. 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 presents with R sided lower extremity weakness, subsequent fall and a intracranial hemorrhagic contusion Acute Frontal Lobe CVA 04/[address] today; check carotid U/S continue PT/OT/speech therapy evals will need walker on discharge no Plavix due to intracranial hemorrhagic contusion continue Lipitor neurology consulted 04/24 patient with initial Head CT which suggested the 9mm hemorrhagic contusion Brain MRI ordered, and shows a small acute frontal lobe CVA appreciate neurology input no antiplatelets for the next week; will check Head CT tomorrow AM and next week Lipitor 40mg daily Hemorrhagic Contusion 9mm ICH repeat head CT in AM HTN metoprolol changed to Coreg hold Amlodipine monitor blood pressure, allow permissive HTN DVT ppx SCDs DNR
--- NOTE | 2017-04-25 12:39 | DIAGNOSTIC IMAGING REPORT ---
CT HEAD WITHOUT CONTRAST (CT) CLINICAL HISTORY: Right parietal hemorrhage COMPARISON STUDY: 04/24/2017 TECHNIQUE: Axial CT of the brain is performed from the vertex to the skull base. IV contrast was not administered for this examination. A dose lowering technique was utilized adhering to the principles of ALARA. CT DOSE: 614.27 mGy.cm FINDINGS: There is a stable 9 mm hemorrhagic focus within the right parietal vertex. There is no CT evidence of acute cortical infarction. There is no midline shift. No calvarial fractures are visualized. There are patchy white matter hypodensities likely on a small vessel basis. There is mild ventricular dilatation likely secondary to volume loss There is no evidence of acute sinusitis. Posterior skin tommy are present within the scalp. There is mild underlying scalp edema IMPRESSION: Stable 9 mm hemorrhagic lesion within the right parietal vertex Electronically signed by: Nick Zimmerman M.D. 04/25/2017 12:38 PM Dictated Date/Time: 04/25/2017 12:36 PM
--- NOTE | 2017-04-25 13:04 | DIAGNOSTIC IMAGING REPORT ---
ULTRASOUND OF THE CAROTID ARTERIES CLINICAL HISTORY: Strokelike symptoms. COMPARISON STUDY: No priors. TECHNIQUE: Real-time, grayscale, and color Doppler sonography of the carotid arteries is performed. Images are reviewed in the transverse and longitudinal planes. FINDINGS: Blood pressure in the right arm measures 111/55 and blood pressure in the left arm measures 116/66. The carotid arteries are patent bilaterally and demonstrate antegrade flow. There is moderate atherosclerotic plaque seen the right carotid bulb. Mild plaque is seen on the left. Normal doppler arterial waveforms are seen throughout. The cardiac pulsations appear irregular on several of the tracings. Velocity measurements are listed below. Common carotid peak systolic velocity (cm/sec): RIGHT: 94 LEFT: 49 ICA proximal peak systolic velocity (cm/sec): RIGHT: 205 LEFT: 66 ICA mid peak systolic velocity (cm/sec): RIGHT: 94 LEFT: 48 ICA distal peak systolic velocity (cm/sec): RIGHT: 101 LEFT: 64 ICA/CC peak systolic ratio: RIGHT: 2.2 LEFT: 1.3 Antegrade flow was shown in the vertebral arteries. The external carotid arteries are patent. IMPRESSION: 1. 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 2. There is no sonographic evidence of hemodynamically significant stenosis in the left carotid arterial system. 3. Antegrade flow is shown in the vertebral arteries. 4. The cardiac pulsations appear irregular. Correlate clinically and with EKG for evidence of arrhythmia. Electronically signed by: Chepe Henriquez M.D. 04/25/2017 1:02 PM Dictated Date/Time: 04/25/2017 12:59 PM
--- NOTE | 2017-04-25 14:59 | Neurology Progress Notes ---
Neurology Progress Note Date of Service Apr 25, 2017. Carlos Bishop is a 76 year old male who has a PMH of HTN, CVA, prediabetes, PVD, hypothyroidism, past tobacco abuse, history of chronic L facial palsy secondary to ear surgery. He woke up with R leg weakness causing him to drag his heavy right leg. He subsequently had a fall hitting his head. Currently is he lying in bed states he wants to go home. refusing to go to rehab. He lost his recently and he just wants to get home to his dog. his niece is staying there now but only until he gets home. denies CP, SOB, abdominal pain, bowel or bladder issues, vision changes, swallowing issues, N, V. Objective Date Time Temp Pulse Resp B/P (MAP) Pulse Ox O2 Delivery O2 Flow Rate FiO2 04/25/17 12:00 Room Air 04/25/17 11:37 36.3 70 19 97/68 (78) 98 Room Air 04/25/17 08:02 36.5 50 19 132/68 (89) 99 Room Air 04/25/17 08:00 Room Air 04/25/17 04:02 98 Room Air 04/25/17 03:03 36.5 63 23 140/73 (95) 97 Room Air 04/24/17 23:59 98 Room Air 04/24/17 23:06 37.1 74 24 142/71 (94) 98 Room Air 04/24/17 20:05 36.6 71 20 142/69 (93) 97 Room Air 04/24/17 20:00 Room Air 04/24/17 16:00 Room Air Last 24 Hours Test 04/25/17 04:41 White Blood Count 8.70 K/uL Red Blood Count 3.86 M/uL Hemoglobin 11.3 g/dL Hematocrit 33.1 % Mean Corpuscular Volume 85.8 fL Mean Corpuscular Hemoglobin 29.3 pg Mean Corpuscular Hemoglobin Concent 34.1 g/dl Platelet Count 179 K/uL Mean Platelet Volume 10.9 fL Neutrophils (%) (Auto) 57.9 % Lymphocytes (%) (Auto) 28.2 % Monocytes (%) (Auto) 10.6 % Eosinophils (%) (Auto) 2.8 % Basophils (%) (Auto) 0.3 % Neutrophils # (Auto) 5.04 K/uL Lymphocytes # (Auto) 2.45 K/uL Monocytes # (Auto) 0.92 K/uL Eosinophils # (Auto) 0.24 K/uL Basophils # (Auto) 0.03 K/uL RDW Standard Deviation 43.4 fL RDW Coefficient of Variation 13.9 % Immature Granulocyte % (Auto) 0.2 % Immature Granulocyte # (Auto) 0.02 K/uL Sodium Level 136 mmol/L Potassium Level 3.9 mmol/L Chloride Level 103 mmol/L Carbon Dioxide Level 25 mmol/L Anion Gap 8.0 mmol/L Blood Urea Nitrogen 20 mg/dl Creatinine 0.78 mg/dl Est Creatinine Clear Calc Drug Dose 96.0 ml/min Estimated GFR () 100.2 Estimated GFR (Non- 86.5 BUN/Creatinine Ratio 26.0 Random Glucose 96 mg/dl Calcium Level 8.7 mg/dl Imaging: carotid doppler- Atherosclerotic plaque with 50-69% stenosis at the origin of the right internal carotid artery by velocity criteria. There is no sonographic evidence of hemodynamically significant stenosis in the left carotid arterial system. Antegrade flow is shown in the vertebral arteries. The cardiac pulsations appear irregular. Correlate clinically and with EKG for evidence of arrhythmia. CT head - Stable 9 mm hemorrhagic lesion within the right parietal vertex Exam: Physical Exam: Constitutional: appearance nourished, healthy and normal Ears, Nose, Mouth and Throat: mucous membranes moist, no injection and skin normal, eyes normal Cardiovascular: normal S-1 and S-2 and regular rate and rhythm Respiratory: clear to auscultation (CTA) and no rales, rhonchi or wheeze Musculoskeletal: no peripheral edema and good distal pulses Skin: no stigmata of neurocutaneous disease noted and normal and intact Eyes: extraocular muscles intact (EOMI) and pupils equal, round and reactive to light (PERRL) NEUROLOGIC EXAMINATION: Mental status: Alert and interactive Oriented to full date and location Oriented to person Speech slurring of speech (chronic facial drooping from surgery) Cranial Nerves left facial droop, unable to raise left eye brow Coordination: finger to nose without bi pass Gait/Stance: Posture lying in bed Motor: Negative for pronator drift of out stretched arms with eyes closed. 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 bilaterally 5/5, hip flex against gravity not resistance Current Inpatient Medications Medications (Trade) Dose Ordered Sig/Ruddy Route Start Time Stop Time Status Last Admin Dose Admin Acetaminophen (Tylenol Tab) 650 mg Q4H PRN PO 04/23/17 21:15 05/23/17 21:14 Nitroglycerin (Nitrostat Tab) 0.4 mg UD PRN SL 04/23/17 21:15 05/23/17 21:14 Tramadol HCl (Ultram Tab) 25 mg Q6H PRN PO 04/23/17 21:15 05/23/17 21:14 Morphine Sulfate (MoRPHine SULFATE INJ) 4 mg Q3H PRN IV 04/23/17 21:15 05/07/17 21:14 Prochlorperazine Edisylate 5 mg/ Syringe 5 ml @ 5 mls/min Q6H PRN IV 04/23/17 21:15 05/23/17 21:14 Atorvastatin Calcium (Lipitor Tab) 40 mg HS PO 04/24/17 21:00 05/24/17 20:59 04/24/17 21:15 40 MG Levothyroxine Sodium (Synthroid Tab) 100 mcg DAILYBB PO 04/24/17 06:00 05/24/17 06:59 04/25/17 06:04 100 MCG Miscellaneous Information (Pharmacist Discharge Med Rec Consult) 1 ea UD PRN N/A 04/23/17 21:15 05/23/17 21:14 Carvedilol (Coreg Tab) 12.5 mg BID PO 04/24/17 21:00 05/24/17 20:59 04/25/17 08:52 12.5 MG Potassium Chloride (Klor-Con M10) 10 meq DAILY PO 04/26/17 09:00 05/26/17 08:59 Impression 76 year old male s/p left frontal lobe stroke and right parietal lobe contusion Plan 1. carotid doppler with 50-69 % stenosis right ICA- should repeat imaging in 1 year 2. plavix 75 mg on hold 3. CT head in 1 week to further evaluate for resolve of contusion 4. PT/OT- patient refusing rehab 5. should have residential eval and home PT if will not got to rehab 6. should be trained to use a walker for ambulation 7. optimize DL, DM, HTN LDL <70 I have seen and discussed above patient with Dr Karol Galicia, neurology Pt seen and examined, follow-up CT head no change in R parietal hemorrhage. Pt is clinically unchanged. REc CT head 1 week to eval for resolution heme.Would then consider resuming antiplt tx. I co not think the pt is compliant enough to use anticoagulants, and has had a hx of falls. Asx OZIEL stenosis, fu carotid us in 1 year with referral to vascular if stenosis is greater than 70%, MARIA ELENA Galicia MD
[2017-04-25] MEDS: ATORVASTATIN 40 MG TAB PO SCH (19:09)
[2017-04-26] VITALS (8 sets, daily range): BP systolic 112–154; BP diastolic 57–79; PULSE 62–68; TEMP 36.3–37; O2SAT 94–100
[2017-04-26 06:46] LABS: BASO % 0.3 %; BASO ABS # 0.02 K/uL (0-0.2); EOS % 3.6 %; EOS ABS # 0.26 K/uL (0-0.5); HEMATOCRIT 33.5 % (42-52); HEMOGLOBIN 11.2 g/dL (14.0-18.0); IG# 0.02 K/uL (0.00-0.02); LYMPH % 28.6 %; LYMPH ABS # 2.09 K/uL (1.2-3.4); MEAN CELL VOLUME 86.3 fL (80-100); MEAN CORPUSCULAR HEMOGLOBIN 28.9 pg (25-34); MEAN CORPUSCULAR HGB CONC 33.4 g/dl (32-36); MEAN PLATELET VOLUME 11.2 fL (7.4-10.4); MONO % 9.5 %; MONO ABS # 0.69 K/uL (0.11-0.59); NEUT % 57.7 %; NEUT ABS # 4.22 K/uL (1.4-6.5); PLATELET COUNT 182 K/uL (130-400); RED CELL DISTRIBUTION WIDTH CV 13.9 % (11.5-14.5); RED CELL DISTRIBUTION WIDTH SD 43.5 fL (36.4-46.3)
[2017-04-26] MEDS: LEVOTHYROXINE 100 MCG TAB PO SCH (06:57)
[2017-04-26 07:20] LABS: CALCIUM 8.8 mg/dl (8.5-10.1); CREATININE 0.76 mg/dl (0.60-1.40); POTASSIUM 3.9 mmol/L (3.5-5.1)
--- NOTE | 2017-04-26 08:48 | Clinical Documentation Query ---
CLINICAL DOCUMENTATION QUERY 76 yo male admitted with CVA, fall and traumatic intracranial hemorrhage. An echo performed on 04/24 showed moderate concentric left ventricular hypertrophy, grade I diastolic dysfunction, and EF = 60-65%. In your clinical opinion is this patient being managed for: ( ) Chronic diastolic CHF ( x ) Not Agree ( ) Other explanation of clinical findings (Please Explain) ( ) Unable to determine (Please Define) ( ) Need to Discuss The medical record reflects the following clinical findings, treatment, and risk factors. Clinical Indicators: As above Treatment: Cardiology consult, echo, I&O Risk Factors: Age, HTN, new onset A-fib Please clarify and document your clinical opinion in the progress notes and discharge summary. Terms such as "probable", "suspected", "likely", "questionable", "possible", or "still to be ruled out" are acceptable. IF IN AGREEMENT, YOU MUST DOCUMENT ABOVE DIAGNOSTIC STATEMENT IN DAILY PROGRESS NOTES AND DISCHARGE SUMMARY. This document is not part of the patient's record. Thank You, Cristina Funez RN [phone]
[2017-04-26] MEDS: POTASSIUM CHLORIDE 10 MEQ TABCR PO SCH (08:57)
[2017-04-26] MEDS: CARVEDILOL 12.5 MG TAB PO SCH ×2 (11:11→21:59)
--- NOTE | 2017-04-26 11:51 | Progress Note ---
Medicine Progress Note Date & Time of Visit: Apr 26, 2017 at 11:42. Subjective This is a 76 year old male with a PMH of previous CVA, PVD, hx. 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 -denies pain Objective Last 8 Hrs Date Time Temp Pulse Resp B/P (MAP) Pulse Ox O2 Delivery O2 Flow Rate FiO2 04/26/17 11:34 36.3 67 20 98 Room Air 04/26/17 11:10 129/79 (96) 04/26/17 08:56 112/57 (75) 04/26/17 08:00 Room Air 04/26/17 06:48 36.8 62 20 119/60 (79) 98 Room Air 04/26/17 04:00 Room Air Physical Exam: GEN: WNWD, in no acute distress, alert and appropriate HEENT: scalp lac in posterior head-tommy in place, no erythema or drainage- healing well. PERRL, normal sclerae, EOMI, MMM, L facial droop CARDIO: reg rate, S1/2 heard without m/g/r LUNGS: CTA bilaterally, no crackles, rales or wheezes, good diaphragmatic excursion ABD: soft, non-tender, non-distended, no rebound or guarding, +BS EXTREMITY: RP and DP palpable 2+ bilat, no LE swelling or edema, extremities are warm and well-perfused NEURO: CN 2-12 grossly intact x facial droop as above, sensation intact throughout. Coord not assessed. MUSC: 5/5 strength throughout, no focal deficits. Gait not assessed. SKIN: warm and dry and wound as above. Laboratory Results: 04/26/17 05:57 Red Blood Count 3.88, Mean Corpuscular Volume 86.3, Mean Corpuscular Hemoglobin 28.9, Mean Corpuscular Hemoglobin Concent 33.4, Mean Platelet Volume 11.2, Neutrophils (%) (Auto) 57.7, Lymphocytes (%) (Auto) 28.6, Monocytes (%) (Auto) 9.5, Eosinophils (%) (Auto) 3.6, Basophils (%) (Auto) 0.3, Neutrophils # (Auto) 4.22, Lymphocytes # (Auto) 2.09, Monocytes # (Auto) 0.69, Eosinophils # (Auto) 0.26, Basophils # (Auto) 0.02 04/26/17 05:57 Test 04/23/17 16:30 04/23/17 18:30 04/24/17 00:43 04/24/17 00:50 Prothrombin Time 10.9 SECONDS (9.0-12.0) Prothromb Time International Ratio 1.0 (0.9-1.1) Activated Partial Thromboplast Time 28.3 SECONDS (21.0-31.0) Partial Thromboplastin Ratio 1.1 Magnesium Level 2.0 mg/dl (1.8-2.4) Total Bilirubin 0.8 mg/dl (0.2-1) Direct Bilirubin 0.2 mg/dl (0-0.2) Aspartate Amino Transf (AST/SGOT) 19 U/L (15-37) Alanine Aminotransferase (ALT/SGPT) 19 U/L (12-78) Alkaline Phosphatase 81 U/L (45-117) Total Creatine Kinase 115 U/L (39-308) Creatine Kinase MB 1.8 ng/ml (0.5-3.6) Creatine Kinase MB Ratio 1.6 (0-3.0) Pro-B-Type Natriuretic Peptide 665 pg/ml (0-1800) Total Protein 7.8 gm/dl (6.4-8.2) Albumin 3.9 gm/dl (3.4-5.0) Lipase 82 U/L (73-393) Thyroid Stimulating Hormone (TSH) 4.700 uIu/ml (0.300-4.500) Free Thyroxine 1.15 ng/dl (0.80-1.60) Total Triiodothyronine 0.82 ng/ml (0.60-1.81) Absolute Reticulocyte Count 0.03 10^6/uL (0.02-0.10) Percent Reticulocyte Count 0.7 % (0.5-2.0) Iron Level 72 mcg/dl (35-175) Total Iron Binding Capacity 335 mcg/dl (250-450) Transferrin 256 mg/dl (200-360) Transferrin % Saturation 20 % (20-50) Ferritin 46.5 ng/ml (8.0-388.0) Vitamin B12 Level 357 pg/mL (211-911) Folate 20.24 ng/mL (>5.38) Urine Color DK YELLOW Urine Appearance CLEAR (CLEAR) Urine pH 7.0 (4.5-7.5) Urine Specific [place] 1.022 (1.000-1.030) Urine Protein NEG (NEG) Urine Glucose (UA) NEG (NEG) Urine Ketones 1+ (NEG) Urine Occult Blood NEG (NEG) Urine Nitrite NEG (NEG) Urine Bilirubin NEG (NEG) Urine Urobilinogen NEG (NEG) Urine Leukocyte Esterase NEG (NEG) Test 04/24/17 05:11 04/26/17 05:57 Troponin I 0.202 ng/ml (0-0.045) Triglycerides Level 83 mg/dl (0-150) Cholesterol Level 162 mg/dl (0-200) HDL Cholesterol 33 mg/dl LDL Cholesterol, Calculated 112 mg/dl VLDL Cholesterol, Calculated 17 mg/dl Cholesterol/HDL Ratio 4.9 White Blood Count 7.30 K/uL (4.8-10.8) Red Blood Count 3.88 M/uL (4.7-6.1) Hemoglobin 11.2 g/dL (14.0-18.0) Hematocrit 33.5 % (42-52) Mean Corpuscular Volume 86.3 fL (80-100) Mean Corpuscular Hemoglobin 28.9 pg (25-34) Mean Corpuscular Hemoglobin Concent 33.4 g/dl (32-36) Platelet Count 182 K/uL (130-400) Mean Platelet Volume 11.2 fL (7.4-10.4) Neutrophils (%) (Auto) 57.7 % Lymphocytes (%) (Auto) 28.6 % Monocytes (%) (Auto) 9.5 % Eosinophils (%) (Auto) 3.6 % Basophils (%) (Auto) 0.3 % Neutrophils # (Auto) 4.22 K/uL (1.4-6.5) Lymphocytes # (Auto) 2.09 K/uL (1.2-3.4) Monocytes # (Auto) 0.69 K/uL (0.11-0.59) Eosinophils # (Auto) 0.26 K/uL (0-0.5) Basophils # (Auto) 0.02 K/uL (0-0.2) RDW Standard Deviation 43.5 fL (36.4-46.3) RDW Coefficient of Variation 13.9 % (11.5-14.5) Immature Granulocyte % (Auto) 0.3 % Immature Granulocyte # (Auto) 0.02 K/uL (0.00-0.02) Anion Gap 7.0 mmol/L (3-11) Est Creatinine Clear Calc Drug Dose 96.8 ml/min Estimated GFR () 101.3 Estimated GFR (Non- 87.4 BUN/Creatinine Ratio 24.4 (10-20) Calcium Level 8.8 mg/dl (8.5-10.1) Last 24 Hours Test 04/26/17 05:57 White Blood Count 7.30 K/uL Red Blood Count 3.88 M/uL Hemoglobin 11.2 g/dL Hematocrit 33.5 % Mean Corpuscular Volume 86.3 fL Mean Corpuscular Hemoglobin 28.9 pg Mean Corpuscular Hemoglobin Concent 33.4 g/dl Platelet Count 182 K/uL Mean Platelet Volume 11.2 fL Neutrophils (%) (Auto) 57.7 % Lymphocytes (%) (Auto) 28.6 % Monocytes (%) (Auto) 9.5 % Eosinophils (%) (Auto) 3.6 % Basophils (%) (Auto) 0.3 % Neutrophils # (Auto) 4.22 K/uL Lymphocytes # (Auto) 2.09 K/uL Monocytes # (Auto) 0.69 K/uL Eosinophils # (Auto) 0.26 K/uL Basophils # (Auto) 0.02 K/uL RDW Standard Deviation 43.5 fL RDW Coefficient of Variation 13.9 % Immature Granulocyte % (Auto) 0.3 % Immature Granulocyte # (Auto) 0.02 K/uL Sodium Level 136 mmol/L Potassium Level 3.9 mmol/L Chloride Level 103 mmol/L Carbon Dioxide Level 26 mmol/L Anion Gap 7.0 mmol/L Blood Urea Nitrogen 18 mg/dl Creatinine 0.76 mg/dl Est Creatinine Clear Calc Drug Dose 96.8 ml/min Estimated GFR () 101.3 Estimated GFR (Non- 87.4 BUN/Creatinine Ratio 24.4 Random Glucose 85 mg/dl Calcium Level 8.8 mg/dl Assessment & Plan This is a 76 year old male with a PMH of previous CVA, PVD, hx. 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 Acute L frontal CVA- stable from a symptom/functional standpoint per nursing. Pt is still very incapable of completing ADLs and we discussed the option of rehab again, for which he is now amenable so long as it is temporary and he is in [place]. No Plavix or aSA at this time in setting of hemoorhagic contusion. PEr Neuro plan is to repeat head CT in one week and then restart the Plavix at that time if things look stable. Cont Lipitor. Of note, no afib has been seen since patient on monitor this hospitalization. Per Bere, he will need an event monitor after discharge. Carotid u/s is recommended in one year. 2. Hemorrhagic contusion on R-9mm, unchanged with stable symptoms and no further deficits. Plan as above. 3. HTN-metop changed to Coreg, holding amlodipine at this time to allow permissive HTN DVT proph-SCDs in setting of head bleed DNR Dispo-plan for rehab, message left for CM to place referral today. Delmis Palomares DO [facility] Hospitalist Consultants: Sedrick Galicia-Neuro Current Inpatient Medications: Current Inpatient Medications Medications (Trade) Dose Ordered Sig/Ruddy Route Start Time Stop Time Status Last Admin Dose Admin Acetaminophen (Tylenol Tab) 650 mg Q4H PRN PO 04/23/17 21:15 05/23/17 21:14 Nitroglycerin (Nitrostat Tab) 0.4 mg UD PRN SL 04/23/17 21:15 05/23/17 21:14 Tramadol HCl (Ultram Tab) 25 mg Q6H PRN PO 04/23/17 21:15 05/23/17 21:14 Morphine Sulfate (MoRPHine SULFATE INJ) 4 mg Q3H PRN IV 04/23/17 21:15 05/07/17 21:14 Prochlorperazine Edisylate 5 mg/ Syringe 5 ml @ 5 mls/min Q6H PRN IV 04/23/17 21:15 05/23/17 21:14 Atorvastatin Calcium (Lipitor Tab) 40 mg HS PO 04/24/17 21:00 05/24/17 20:59 04/25/17 19:09 40 MG Levothyroxine Sodium (Synthroid Tab) 100 mcg DAILYBB PO 04/24/17 06:00 05/24/17 06:59 04/26/17 06:57 100 MCG Miscellaneous Information (Pharmacist Discharge Med Rec Consult) 1 ea UD PRN N/A 04/23/17 21:15 05/23/17 21:14 Carvedilol (Coreg Tab) 12.5 mg BID PO 04/24/17 21:00 05/24/17 20:59 04/26/17 11:11 12.5 MG Potassium Chloride (Klor-Con M10) 10 meq DAILY PO 04/26/17 09:00 05/26/17 08:59 04/26/17 08:57 10 MEQ
--- NOTE | 2017-04-26 15:29 | Neurology Progress Notes ---
Neurology Progress Note Date of Service Apr 26, 2017. Carlos Bishop is a 76 year old male who has a PMH of HTN, CVA, prediabetes, PVD, hypothyroidism, past tobacco abuse, history of chronic L facial palsy secondary to ear surgery. He woke up with R leg weakness causing him to drag his heavy right leg. He subsequently had a fall hitting his head. Currently is he lying in bed states he wants to go home. refusing to go to rehab. He lost his recently and he just wants to get home to his dog. his niece is staying there now but only until he gets home. He has agreed to go to [facility] for rehab. He was up walking with PT today and states his right leg is still numb. Just waiting for insurance authorization. denies CP, SOB, abdominal pain, bowel or bladder issues, vision changes, swallowing issues, N, V. Objective Date Time Temp Pulse Resp B/P (MAP) Pulse Ox O2 Delivery O2 Flow Rate FiO2 04/26/17 12:00 Room Air 04/26/17 11:34 36.3 67 20 98 Room Air 04/26/17 11:10 129/79 (96) 04/26/17 08:56 112/57 (75) 04/26/17 08:00 Room Air 04/26/17 06:48 36.8 62 20 119/60 (79) 98 Room Air 04/26/17 04:00 Room Air 04/26/17 03:30 36.8 66 18 147/70 (95) 100 Room Air 04/26/17 00:01 Room Air 04/25/17 23:26 36.8 73 20 130/71 (90) 98 Room Air 04/25/17 20:30 37.1 74 18 120/63 (82) 98 Room Air 04/25/17 20:00 Room Air 04/25/17 16:32 36.8 62 20 134/78 (96) 97 Room Air 04/25/17 16:00 Room Air Last 24 Hours Test 04/26/17 05:57 White Blood Count 7.30 K/uL Red Blood Count 3.88 M/uL Hemoglobin 11.2 g/dL Hematocrit 33.5 % Mean Corpuscular Volume 86.3 fL Mean Corpuscular Hemoglobin 28.9 pg Mean Corpuscular Hemoglobin Concent 33.4 g/dl Platelet Count 182 K/uL Mean Platelet Volume 11.2 fL Neutrophils (%) (Auto) 57.7 % Lymphocytes (%) (Auto) 28.6 % Monocytes (%) (Auto) 9.5 % Eosinophils (%) (Auto) 3.6 % Basophils (%) (Auto) 0.3 % Neutrophils # (Auto) 4.22 K/uL Lymphocytes # (Auto) 2.09 K/uL Monocytes # (Auto) 0.69 K/uL Eosinophils # (Auto) 0.26 K/uL Basophils # (Auto) 0.02 K/uL RDW Standard Deviation 43.5 fL RDW Coefficient of Variation 13.9 % Immature Granulocyte % (Auto) 0.3 % Immature Granulocyte # (Auto) 0.02 K/uL Sodium Level 136 mmol/L Potassium Level 3.9 mmol/L Chloride Level 103 mmol/L Carbon Dioxide Level 26 mmol/L Anion Gap 7.0 mmol/L Blood Urea Nitrogen 18 mg/dl Creatinine 0.76 mg/dl Est Creatinine Clear Calc Drug Dose 96.8 ml/min Estimated GFR () 101.3 Estimated GFR (Non- 87.4 BUN/Creatinine Ratio 24.4 Random Glucose 85 mg/dl Calcium Level 8.8 mg/dl Imaging: no new imaging Exam: Physical Exam: Constitutional: appearance nourished, healthy and normal, sitting up bedside chair Ears, Nose, Mouth and Throat: mucous membranes moist, no injection and skin normal, eyes normal Cardiovascular: normal S-1 and S-2 and regular rate and rhythm Respiratory: clear to auscultation (CTA) and no rales, rhonchi or wheeze Musculoskeletal: no peripheral edema Skin: no stigmata of neurocutaneous disease noted and normal and intact Eyes: extraocular muscles intact (EOMI) and pupils equal, round and reactive to light (PERRL) NEUROLOGIC EXAMINATION: Mental status: Alert and interactive Oriented [facility], 2018, Trump president Oriented to person Speech fluent with no evidence of aphasia Cranial Nerves smile left facial droop is chronic and unable to lift left eye brow is chronic Coordination: finger to nose with no bipass Gait/Stance: Posture sitting up in bedside chair Motor: Negative for pronator drift of out stretched arms with eyes closed. 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 manager house bilaterally 5/5, hip flex plantar flex ext 4+/5 bilaterally Current Inpatient Medications Medications (Trade) Dose Ordered Sig/Ruddy Route Start Time Stop Time Status Last Admin Dose Admin Acetaminophen (Tylenol Tab) 650 mg Q4H PRN PO 04/23/17 21:15 05/23/17 21:14 Nitroglycerin (Nitrostat Tab) 0.4 mg UD PRN SL 04/23/17 21:15 05/23/17 21:14 Tramadol HCl (Ultram Tab) 25 mg Q6H PRN PO 04/23/17 21:15 05/23/17 21:14 Morphine Sulfate (MoRPHine SULFATE INJ) 4 mg Q3H PRN IV 04/23/17 21:15 05/07/17 21:14 Prochlorperazine Edisylate 5 mg/ Syringe 5 ml @ 5 mls/min Q6H PRN IV 04/23/17 21:15 05/23/17 21:14 Atorvastatin Calcium (Lipitor Tab) 40 mg HS PO 04/24/17 21:00 05/24/17 20:59 04/25/17 19:09 40 MG Levothyroxine Sodium (Synthroid Tab) 100 mcg DAILYBB PO 04/24/17 06:00 05/24/17 06:59 04/26/17 06:57 100 MCG Miscellaneous Information (Pharmacist Discharge Med Rec Consult) 1 ea UD PRN N/A 04/23/17 21:15 05/23/17 21:14 Carvedilol (Coreg Tab) 12.5 mg BID PO 04/24/17 21:00 05/24/17 20:59 04/26/17 11:11 12.5 MG Potassium Chloride (Klor-Con M10) 10 meq DAILY PO 04/26/17 09:00 05/26/17 08:59 04/26/17 08:57 10 MEQ Impression 76 year old male s/p left frontal lobe stroke and right parietal lobe contusion Plan 1. carotid doppler with 50-69 % stenosis right ICA- should repeat imaging in 1 year if >70% should have vascular referral 2. plavix 75 mg on hold 3. CT head in 1 week to further evaluate for resolve of contusion if resolved can restart plavix 4. PT/OT- patient has now consented to rehab 5. should have [facility] prior to return home 6. should be trained to use a walker for ambulation 7. optimize DL, DM, HTN LDL <70 8. neurology follow up 2-3 weeks after discharge from rehab with Karol Galicia MD or Karol Stewart PAC schedule I have seen and discussed above patient with Dr Karol Galicia, neurology Discussed pt with Aron. CT head report should be forwarded to us so we can advise re resuming antiplt tx. MARIA ELENA Galicia MD
[2017-04-26] MEDS: ATORVASTATIN 40 MG TAB PO SCH (21:59)
[2017-04-27 03:17] VITALS: BP 121/70; PULSE 64; TEMP 36.8; O2SAT 93
[2017-04-27] MEDS: LEVOTHYROXINE 100 MCG TAB PO SCH (05:52)
[2017-04-27 07:28] VITALS: BP 136/75; PULSE 64; TEMP 36.5; O2SAT 98
[2017-04-27] MEDS: CARVEDILOL 12.5 MG TAB PO SCH (07:37)
[2017-04-27] MEDS: POTASSIUM CHLORIDE 10 MEQ TABCR PO SCH (07:37)
[2017-04-27 08:14] LABS: BASO % 0.4 %; BASO ABS # 0.03 K/uL (0-0.2); EOS ABS # 0.21 K/uL (0-0.5); HEMATOCRIT 32.5 % (42-52); HEMOGLOBIN 11.2 g/dL (14.0-18.0); IG# 0.02 K/uL (0.00-0.02); LYMPH % 27.3 %; LYMPH ABS # 1.94 K/uL (1.2-3.4); MEAN CELL VOLUME 85.3 fL (80-100); MEAN CORPUSCULAR HEMOGLOBIN 29.4 pg (25-34); MEAN CORPUSCULAR HGB CONC 34.5 g/dl (32-36); MONO % 8.5 %; NEUT % 60.5 %; PLATELET COUNT 203 K/uL (130-400); RED CELL DISTRIBUTION WIDTH CV 13.9 % (11.5-14.5); RED CELL DISTRIBUTION WIDTH SD 42.7 fL (36.4-46.3)
[2017-04-27 11:38] VITALS: BP 120/50; PULSE 76; TEMP 36.9; O2SAT 95
--- NOTE | 2017-04-27 12:07 | Discharge Summary ---
Discharge Summary Date of Service Apr 27, 2017. Discharge Summary Admission Date: Apr 23, 2017 at 20:40 Discharge Date: Apr 27, 2017 Discharge Disposition: nursing home facility Principal Diagnosis: Acute L frontal CVA Hemorrhagic contusion on R brain -9mm Multiple falls at home Ambulatory dysfunction at baseline 5 inch posterior scalp laceration HTN Hypothyroidism Basilar artery stenosis identified in 2011, on chronic antiplatelet therapy with Plavix DMII-diet controlled. 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 * There is moderate concentric left ventricular hypertrophy. * The basal septum is thickened and angulated consistent with sigmoid septum. * Left ventricular systolic function is normal. * The left ventricular wall motion is normal. * Ejection Fraction = 60-65%. * Grade I diastolic dysfunction, (abnormal relaxation pattern). * Aortic valve sclerosis moderate, without significant aortic valvular stenosis. * Trace aortic regurgitation. * There is mild mitral regurgitation. * The left atrium is moderately dilated. Vaccinations: declined Pneumovax Consultations: Sedrick Galicia-Neuro Pending Studies/Follow-Up: see instructions below. Medication Reconciliation Continued Medications: Atorvastatin (Lipitor) 40 Mg Tab 40 MG PO HS, TAB Carvedilol (Coreg) 12.5 Mg Tab 12.5 MG PO BID, TAB Levothyroxine Sodium (Levothyroxine Sodium) 100 Mcg Tab 1 TAB PO DAILY for 90 Days, #90 TAB 3 Refills Lisinopril (Zestril) 10 Mg Tab 10 MG PO DAILY, TAB Discontinued Medications: Amlodipine (Norvasc) 5 Mg Tab 5 MG PO DAILY, TAB Clopidogrel (Plavix) 75 Mg Tab 75 MG PO DAILY, TAB Admission Information HPI (per Admitting provider): HISTORY OF PRESENT ILLNESS: History obtained from patient and records. 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 This morning patient woke up with R leg weakness causing him to drag his heavy right leg. He subsequently had a fall hitting his head. No syncope, no LOC. No chest pain, no shortness of breath. Unable to take his pills the last few days having ran out of them. Patient brought to the Emergency Room. Scalp wound repaired. CAT scan of the head showed small hemorrhagic contusion in right parietal lobe measuring 9 mm. Patient refused transfer to [facility] for Neurosurgical evaluation. At the Emergency Room, patient was noted to be in AFib on the monitor. MEDICAL HISTORY: As above. February 2012, the patient admitted in [place] for a subacute stroke. Prior to transfer was intubated at [facility] for altered mental status. MRI during [facility] confinement showed small focus of restricted diffusion in the right frontal lobe, suspicious infarct in the inferior right occipital lobe. Physical Exam (per Admitting): PHYSICAL EXAMINATION: VITAL SIGNS: Blood pressure was noted to be 179/93, pulse rate 90, RR 24, temperature 36.7, sats 98 on room air. GENERAL: Noted to be obese, comfortable, no respiratory distress, dysarthria chronic. SKIN: Pallor, warm. HEENT: Dressing on the posterior scalp. Pale palpebral conjuctivae. Facial asymmetry, left (chronic) NECK: Supple, nontender. LUNGS: Decreased breath sounds. No tenderness. HEART: RRR, palpable LE pulses. ABDOMEN: Soft, nontender. EXTREMITIES: No edema, no tenderness. No gross deformities. NEUROLOGIC: Coherent. Chronic dysarthria as per patient, Left facial asymmetry. Decreased MMTs right lower extremity 3/5, left 4/5. Gait and stance not assessed. Hospital Course 76 yo M presented to the ER after a fall episode at home. He ambulates with two canes and lives alone. He was also noted to have been out of his medications including Norvasc, Lipitor, Coreg, Plavix, Synthroid and Zestril at home for 2-3 weeks. He reported that his had recently passed in the last 3 -4 months. When he fell he struck his head and incurred a posterior scalp laceration as well as a 9mm hemorrhagic contusion on his R brain. His scalp laceration was closed with 15 tommy in the standard fashion with good hemostasis. The neurosurgeon in [facility] was contacted and thought the patient should be directed to a trauma center, however, the patient declined. He was admitted to the medicine service. Troponin was mildly positive without chest pain or other signs of ACS, but Cardiology was consulted for this and evaluation for possible arrhythmia. No overt atrial fibrillation was seen with occasional ventricular ectopic beats and one 4-beat run of NSVT. He also had frequent atrial ectopy. Metoprolol was switched to Carvedilol. Some antihypertensives were held in setting of possible stroke and to allow permissive hypertension. MRI was performed and revealed acute L frontal infarction, which possibly caused his fall now causing a traumatic R parietal hemorrhage. As antiplatelet or anticoagulant therapy was contraindicated this was held. A repeat head CT was performed in 24 hours and revealed a stable hemorrhage. He was evaluated by PT and OT who recommended acute rehabilitation. He finally agreed to this and was sent to [facility] as he lives alone. Surgical tommy should be re-evaluated in 7 to 14 days for removal at SNF. Additionally, this patient requires a repeat head CT on 05/02 to re- evaluate his hemorrhagic contusion. Per Neurology (Dr. Karol Galicia) if this is stable his Plavix may be restarted. He is to follow-up with Neurology as outpatient in 2-3 weeks. He is to obtain an outpatient event monitor per [facility] Cardiology (Dr. Kaleb Mccarthy). He is to follow up with his PCP within one week of discharge from rehab. On day of discharge physical exam was stable and unremarkable aside from chronic facial droop and he was mentating well and tolerating PO. He was discharged in stable condition to SNF for continued rehabilitation and strength testing. Total time spent on discharge = 60 minutes This includes examination of the patient, discharge planning, medication reconciliation, and communication with other providers. [place] [address] Discharge Stroke Condition Patient Name: Dario Nolasco Unit Number: [id number] Date of : 1940 Patient Status: Admitted Inpatient Attending Doctor: Delmis Palomares DO DI: Stroke v4 Discharge Instructions Date of Service Apr 27, 2017. Admission Reason for Admission: [facility] Discharge Discharge Diagnosis / Problem: acute left frontal stroke, intracranial hemorrhage Discharge Goals Goal(s): Decrease discomfort, Increase independence, Prevent Disease Progression Activity Recommendations Activity Limitations: per Instructions/Follow-up section . Instructions / Follow-Up Instructions / Follow-Up Risk Factors for Stroke: You can reduce your chances of stroke by working with your medical provider to adopt a healthy lifestyle. Some specific ways to lower your chance of stroke are: * If you are a smoker, now is the time to stop smoking cigarettes * If you are diabetic, improve the control of your blood sugars * Avoid excessive amounts of alcohol * Control high blood pressure * Lose weight if you are overweight * Be sure to lead an active lifestyle * Eat a healthy diet low in salt, cholesterol and fat You should know about other risk factors for stroke that you are unable to control. These include: * Age 55 years or older * Male gender * Certain racial groups: , or / * Family History of Stroke, Mini stroke or Heart Attack * Sickle Cell Disease Follow Up: It is important for you to keep your follow up appointments with your medical provider. ADDITIONAL PROVIDER INSTRUCTIONS: 1. Please take all medications as instructed. 2. Please note that your Plavix is being held until your CT head returns stable. You will need to have a head CT performed on Tuesday, 05/02, to have the bleed in your brain assessed. 3. You will need to obtain a referral to cardiology as outpatient to get setup for an outpatient event monitor. 4. You will need a carotid ultrasound in one year. This and any referral can be performed by your primary care physician. 5. You will need have a hospital follow-up appointment with your primary care physician within one week of discharge from rehab facility. 6. You will need to have a follow-up appointment with [facility] Neurology (Dr. Karol Galicia) within two weeks of discharge from the rehab facility. It was a pleasure taking care of you! Call if you have any questions or problems. You can reach a [facility] hospitalist on duty at [facility] 24 hours a day by calling [phone]. Take care of yourself. Delmis Palomares, DO [facility] Hospitalist Current Hospital Diet Patient's current hospital diet: AHA Diet (Heart Healthy) Discharge Diet Recommended Diet: AHA Diet (Heart Healthy) Procedures Procedures Performed: ULTRASOUND OF THE CAROTID ARTERIES CLINICAL HISTORY: Strokelike symptoms. COMPARISON STUDY: No priors. TECHNIQUE: Real-time, grayscale, and color Doppler sonography of the carotid arteries is performed. Images are reviewed in the transverse and longitudinal planes. FINDINGS: Blood pressure in the right arm measures 111/55 and blood pressure in the left arm measures 116/66. The carotid arteries are patent bilaterally and demonstrate antegrade flow. There is moderate atherosclerotic plaque seen the right carotid bulb. Mild plaque is seen on the left. Normal doppler arterial waveforms are seen throughout. The cardiac pulsations appear irregular on several of the tracings. Velocity measurements are listed below. Common carotid peak systolic velocity (cm/sec): RIGHT: 94 LEFT: 49 ICA proximal peak systolic velocity (cm/sec): RIGHT: 205 LEFT: 66 ICA mid peak systolic velocity (cm/sec): RIGHT: 94 LEFT: 48 ICA distal peak systolic velocity (cm/sec): RIGHT: 101 LEFT: 64 ICA/CC peak systolic ratio: RIGHT: 2.2 LEFT: 1.3 Antegrade flow was shown in the vertebral arteries. The external carotid arteries are patent. IMPRESSION: 1. 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 2. There is no sonographic evidence of hemodynamically significant stenosis in the left carotid arterial system. 3. Antegrade flow is shown in the vertebral arteries. 4. The cardiac pulsations appear irregular. Correlate clinically and with EKG for evidence of arrhythmia. CT HEAD WITHOUT CONTRAST (CT) CLINICAL HISTORY: Right parietal hemorrhage COMPARISON STUDY: 04/24/2017 TECHNIQUE: Axial CT of the brain is performed from the vertex to the skull base. IV contrast was not administered for this examination. A dose lowering technique was utilized adhering to the principles of ALARA. CT DOSE: 614.27 mGy.cm FINDINGS: There is a stable 9 mm hemorrhagic focus within the right parietal vertex. There is no CT evidence of acute cortical infarction. There is no midline shift. No calvarial fractures are visualized. There are patchy white matter hypodensities likely on a small vessel basis. There is mild ventricular dilatation likely secondary to volume loss There is no evidence of acute sinusitis. Posterior skin tommy are present within the scalp. There is mild underlying scalp edema IMPRESSION: Stable 9 mm hemorrhagic lesion within the right parietal vertex CT HEAD WITHOUT CONTRAST (CT) CLINICAL HISTORY: Right parietal hemorrhage COMPARISON STUDY: 04/24/2017 TECHNIQUE: Axial CT of the brain is performed from the vertex to the skull base. IV contrast was not administered for this examination. A dose lowering technique was utilized adhering to the principles of ALARA. CT DOSE: 614.27 mGy.cm FINDINGS: There is a stable 9 mm hemorrhagic focus within the right parietal vertex. There is no CT evidence of acute cortical infarction. There is no midline shift. No calvarial fractures are visualized. There are patchy white matter hypodensities likely on a small vessel basis. There is mild ventricular dilatation likely secondary to volume loss There is no evidence of acute sinusitis. Posterior skin tommy are present within the scalp. There is mild underlying scalp edema IMPRESSION: Stable 9 mm hemorrhagic lesion within the right parietal vertex MRA OF THE INTRACRANIAL CIRCULATION WITHOUT CONTRAST CLINICAL HISTORY: Stroke - Attention to [place] COMPARISON STUDY: None. TECHNIQUE: Utilizing a 1.5 Danielle magnet and 3-D [id number] technique, unenhanced MRA of the intracranial circulation was obtained. FINDINGS: The bilateral M1, M2, A1 and A2 segments are patent. There is no abrupt vessel cut off. There is persistence of the left posterior cerebral artery. No intracranial aneurysm is slight identified. There is moderate to severe stenosis of the mid basilar artery. No additional significant stenoses are identified. The right vertebral artery likely ends in PICA. IMPRESSION: 1. No intracranial aneurysm or abrupt vessel cut off. 2. Moderate to severe stenosis of the mid basilar artery. 3. persistence of the left posterior cerebral artery. MRA OF THE INTRACRANIAL CIRCULATION WITHOUT CONTRAST CLINICAL HISTORY: Stroke - Attention to [place] COMPARISON STUDY: None. TECHNIQUE: Utilizing a 1.5 Danielle magnet and 3-D [id number] technique, unenhanced MRA of the intracranial circulation was obtained. FINDINGS: The bilateral M1, M2, A1 and A2 segments are patent. There is no abrupt vessel cut off. There is persistence of the left posterior cerebral artery. No intracranial aneurysm is slight identified. There is moderate to severe stenosis of the mid basilar artery. No additional significant stenoses are identified. The right vertebral artery likely ends in PICA. IMPRESSION: 1. No intracranial aneurysm or abrupt vessel cut off. 2. Moderate to severe stenosis of the mid basilar artery. 3. persistence of the left posterior cerebral artery. CT OF THE ABDOMEN AND PELVIS WITHOUT CONTRAST CLINICAL HISTORY: Fall. Low back pain. COMPARISON STUDY: No previous studies for comparison. TECHNIQUE: Axial images of the abdomen and pelvis were obtained without IV contrast. Images were reviewed in the axial, sagittal, and coronal planes. A dose lowering technique was utilized adhering to the principles of ALARA. FINDINGS: Visualized portions of the lower chest demonstrate moderate cardiomegaly and moderate dilatation of visualized portions of the ascending aorta that measures up to 4.5 cm. No hemoperitoneum or pneumoperitoneum is present. Evaluation of the abdomen and pelvis is suboptimal on this unenhanced exam. A few water attenuation left renal lesions likely reflect cysts. There may be a 3 mm nonobstructing right renal calculus. There is no evidence for traumatic injury to the liver, spleen, adrenal glands or pancreas on this unenhanced exam. Caliber small large bowel are normal. There is no free fluid. Prostate is moderately enlarged. There is a right-sided hydrocele. No acute lumbar spine or pelvic fractures identified. IMPRESSION: 1. No acute traumatic findings within the abdomen or pelvis on unenhanced exam. 2. Moderate dilatation of visualized portions of the ascending aorta, measuring up to 4.[address] OF THE CERVICAL SPINE WITHOUT CONTRAST CLINICAL HISTORY: Fall. COMPARISON STUDY: No previous studies for comparison. TECHNIQUE: Helical axial images of the cervical spine were obtained without IV contrast. Sagittal and coronal reconstructions were viewed. A dose lowering technique was utilized adhering to the principles of ALARA. FINDINGS: Craniocervical junction is intact. There is no acute cervical spine fracture. There is mild leftward curvature of the cervical spine which may be positional. There is moderate multilevel degenerative disc disease and facet arthrosis. There is no prevertebral edema. IMPRESSION: No acute cervical spine fracture or subluxation. CHEST ONE VIEW PORTABLE CLINICAL HISTORY: Abdominal pain. Fall. COMPARISON STUDY: No previous studies for comparison. FINDINGS: There is no pneumothorax or pleural effusion. There is no evidence for pulmonary edema. No airspace opacities are present. Moderate cardiomegaly is noted. 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 IMPRESSION: No acute cardiopulmonary findings. CT OF THE HEAD WITHOUT CONTRAST CLINICAL HISTORY: Fall. COMPARISON STUDY: No previous studies for comparison. TECHNIQUE: Helical axial images of the head were obtained without IV contrast. Automated exposure control was utilized for the study. A dose lowering technique was utilized adhering to the principles of ALARA. FINDINGS: Note is made of a 9 mm focus of acute hemorrhage within the right parietal cortex. No additional sites of intracranial hemorrhage are present. Ventricular system is unremarkable for age. Basilar cisterns are patent. There are no extra-axial collections. White matter hypodensity suggests small vessel disease. There may be a posterior scalp contusion. There is no calvarial fracture. There are old lacunar infarcts within the bilateral basal ganglia. IMPRESSION: 1. Small hemorrhagic contusion within the right parietal lobe measuring 9 mm. A short-term follow-up head CT in 12 to 24 hours is recommended. 2. No calvarial fracture. Pending Studies Studies pending at discharge: no Laboratory Results Lipid Panel Test 04/24/17 05:11 Range/Units Triglycerides Level 83 0-150 mg/dl Cholesterol Level 162 0-200 mg/dl HDL Cholesterol 33 mg/dl Cholesterol/HDL Ratio 4.9 LDL Cholesterol, Calculated 112 mg/dl Medical Emergencies . Who to Call and When: Medical Emergencies: Call 911 immediately if you experience any of the following warning signs and symptoms of Stroke: * Sudden numbness or weakness of the face, arm or leg, especially on one side of the body * Sudden confusion, trouble speaking or understanding * Sudden trouble seeing in one or both eyes * Sudden trouble walking, dizziness, loss of balance or coordination * Sudden severe headache with no cause Do not delay calling 911 if you experience any warning signs or symptoms of a stroke. Delay in seeking medical attention may affect what treatments can be given to you. . Non-Emergent Contact Non-Emergency issues call your: Primary Care Provider, Neurologist . . "Provider Documentation" section prepared by Delmis Palomares. . Stroke Core Measures Reason no t-PA for Stroke: Contraindicated Reason no antithrom by day 2: Contraindicated Reason no antithrom at D/C: Contraindicated Reason no statin at D/C: Treatment provided - N/A Reason no anticoag w/a fib: Treatment not indicated VTE Core Measure Inpt VTE Proph given/why not?: SCD's, Contraindicated
[2017-04-27 12:24] VITALS: BP 120/50; PULSE 76; TEMP 36.9; O2SAT 95
== END 2017-04-27 13:10 | DRG 64 ==
LOC: C.EDC 16:17 → C.2E 20:40 → ENRESERV 20:52
PROVIDERS: ADMIT Internal Medicine; ATTEND Hospitalist
PROC: 0HQ0XZZ Repair Scalp Skin, External Approach (ICD-10-PCS; principal; 2017-04-23)
DX: I63.8 Other cerebral infarction (principal); S06.5X0A Traumatic subdural hemorrhage without loss of consciousness, initial encounter; G81.91 Hemiplegia, unspecified affecting right dominant side; S01.01XA Laceration without foreign body of scalp, initial encounter; I16.0 Hypertensive urgency; E11.9 Type 2 diabetes mellitus without complications; I10 Essential (primary) hypertension; E03.9 Hypothyroidism, unspecified; I48.91 Unspecified atrial fibrillation; G51.0 Bell's palsy; E78.5 Hyperlipidemia, unspecified; R29.6 Repeated falls; Z66 Do not resuscitate; Z79.02 Long term (current) use of antithrombotics/antiplatelets; Z79.899 Other long term (current) drug therapy; Z86.73 Personal history of transient ischemic attack (TIA), and cerebral infarction without residual deficits; Z87.891 Personal history of nicotine dependence; Z88.0 Allergy status to penicillin; Z88.8 Allergy status to other drugs, medicaments and biological substances; Z91.14 Patient's other noncompliance with medication regimen; Z91.81 History of falling; Z82.3 Family history of stroke; W18.30XA Fall on same level, unspecified, initial encounter

== ENCOUNTER 2019-09-13 12:12 | Inpatient (IN) ==
--- OUTSIDE RECORDS SUMMARY | 2019-09-13 12:16 | External Medical Summary | Continuity of Care Document ---
:1940 Author Name Malia Gunderson, Provider Address Unavailable Unavailable , Care Team Providers Name Role Phone Unavailable Unavailable Unavailable NORI VILLANUEVA Unavailable Unavailable Problems Active medical history not documented Allergies and Adverse Reactions Allergy history not documented Medications Medications not documented Procedures Procedures not documented Immunizations Immunizations not documented Plan of Treatment Planned Observations Planned Goals not documented Results No Known Results Results not documented
[2019-09-13] MEDS ORDERED: SODIUM CHLORIDE 0.9% 1000ML 500 ML IV ONE (12:48)
[2019-09-13] MEDS ORDERED: LACTATED RINGER'S 1,000 ML IV ONE (12:48)
[2019-09-13] MEDS ORDERED: cefTRIAXone SODIUM 2,000 MG/70 ML BAG IV STA (12:54)
[2019-09-13 12:57] LABS: Hematocrit (blood only) 40.9 % (42-52); Hemoglobin 14.2 g/dL (14.0-18.0); Mean Corpuscular Hemoglobin 30.5 pg (25-34); Mean Corpuscular Hgb Conc 34.7 g/dL (32-36); Mean Platelet Volume 10.8 fL (7.4-10.4); Platelet Count 248 K/uL (130-400); RDW Coefficient of Variation 14.7 % (11.5-14.5); RDW Standard Deviation 47.4 fL (36.4-46.3); Red Blood Count 4.65 M/uL (4.7-6.1); White Blood Count 27.63 K/uL (4.8-10.8)
[2019-09-13] MEDS ORDERED: SODIUM CHLORIDE 0.9% 1000ML 1,000 ML IV SCH ×2 (13:00→16:15)
[2019-09-13 13:08] LABS: INR 1.3 (0.9-1.1); Partial Thromboplastin Ratio 1.1; Partial Thromboplastin Time 30.3 Seconds (21.0-31.0); Prothrombin Time 13.2 Seconds (9.0-12.0)
[2019-09-13 13:17] LABS: Albumin Level 3.3 gm/dl (3.4-5.0); BUN Creatinine Ratio 21.7 (10-20); Calcium 9.9 mg/dl (8.5-10.1); Creatinine Clr Calc Pharmacy 41.7 ml/min; Est GFR (African American) 48.3; Est GFR (Non-African American) 41.7; Magnesium 2.1 mg/dl (1.8-2.4); Potassium 3.7 mmol/L (3.5-5.1)
--- NOTE | 2019-09-13 13:39 | Emergency Department Note ---
Impression & Plan Fall, Non-ST elevation MS (NSTEMI), Rhabdomyolysis, Pressure ulcer of right hip, Confusion, Cellulitis of right lower extremity, RHONDA (acute kidney injury) ED Provider Note Provider: Manoj Lucio MD DATE OF SERVICE: 09/13/2019 CHIEF COMPLAINT: Fall, change in mental status HISTORY OF PRESENT ILLNESS: Patient is a 78-year-old gentleman with a history of diabetes, hypertension, intracranial hemorrhage presenting here today via ambulance from home. Evidently last seen well on Tuesday evening and now 2 days later nephew checked on him and found him on the floor in a confused state. No air conditioning in the home and that was in deplorable state and the patient was covered in feces and urine. Upon arrival here the patient is mildly tachypneic but in no obvious distress. Is somewhat confused and not providing a consistent history. EMS reports that the patient was found on the floor and appears to a fallen. They report that the patient's nephew pressed the life alert button for the patient and they were called today for this. Patient himself is unable to give me exact baseline how long he is on the floor. He is obvious swelling and some pain over the right greater trochanter as well as the right lower extremity particularly by the foot. Patient denies chest pain to me or abdominal pain. He denies a headache to me. Patient states he is thirsty. Did receive 1 L of normal saline prior to arrival. REVIEW OF SYSTEMS: A total of 10 review of systems was obtained and negative except as stated above in the HPI. PAST MEDICAL HISTORY: As noted above MEDICATIONS: Reviewed home medication list which reportedly shows aspirin unsure when he last took this SOCIAL HISTORY: Lives at home alone, history of tobacco abuse. PHYSICAL EXAM: GENERAL: alert on the stretcher in no obvious distress Head: normocephalic and atraumatic EYES: No injection, discharge or icterus. PERRL NECK: Trachea midline. Supple. ENT: Mucous membranes pink but dry. Loose upper dentures noted. LUNGS: Airway patent. No retractions but mildly tachypneic breath sounds clear HEART: Regular rate and rhythm. No chest wall tenderness ABDOMEN: Soft and non-tender, without guarding or rebound. SKIN: Acyanotic, warm, dry. EXTREMITIES: Patient with a approximate 14 x 4 cm area of erythema and partially deflated bulla over the right greater trochanter/hip region. He has swelling and erythema of the right distal calf to the right foot approximately 1+. No significant tenderness or deformity of the left lower extremity is grossly appreciated. NEUROLOGICAL: No focal deficits. No aphasia. No facial droop or slurred speech. Normal strength and tone in the extremities. Sensation to gross touch normal. Ambulatory. EKG: Normal sinus rhythm [address] segment elevation or significant depressions are appreciated. Some lead III T wave inversions noted. QTC of 445. Some increase in old septal infarct is noted across the precordium in comparison to previous available from April [id number]. CONTINUOUS CARDIAC MONITORING: was ordered and showed a heart rate of 84 bpm in normal sinus rhythm Patient's hypertension was referred to the hospitalist GCS 14 -confused. HOSPITAL COURSE: 1247 Patient was first seen and H&P performed. 1600 reevaluated the patient who is resting at baseline denies chest pain. [facility] hospitalist will be paged. [id number] discussed with Valencia José of the [facility] hospitalist team Patient's laboratory studies and imaging reviewed. Differential includes Infection, traumatic, dehydration, metabolic abnormality, hypo/hyperglycemia, electrolyte disturbance, anemia, hypoxia, cardiac sources, intracerebral event, toxicologic, neurologic, as well as other pathologies. IMPRESSION/MEDICAL DECISION MAKING: Patient appears dehydrated and initially mildly tachypneic and also febrile. Question whether this fever is infectious versus more environmental as reportedly he was in a very hot house. Unsure how long he was down but is obvi ous pressure changes to his right hip and question whether the right lower extremity swelling is more of a pressure related change versus infectious change. Covered empirically with ceftriaxone with blood cultures obtained before this was given. Given the unclear history and tachypnea and fever send out COVID testing was ordered and maintained on airborne precautions. CT the head and cervical spine were complete without acute traumatic injury noted. X- ray of the chest as well as the R hip and pelvis were obtained without notable fracture on x-ray. Significant leukocytosis is needed but not anemia. Acute kidney injury is noted compared to previous with a creatinine of 1.55. Patient received more than feel 30 mg/kg of IV fluid for fluid resuscitation and lactate is mildly elevated. Has evidence of rhabdomyolysis with elevated CK and significant troponin elevation of 50.8. Patient EKG without acute STEMI findings. Discussed with cardiology. Given the history sounds less like acute occlusive ACS and with a history of intracranial bleed will defer empiric heparin drip at this time. Patient denies chest pain to me. Procalcitonin is elevated. Urine is not particularly indicative of an infection source. Chest x-ray appears clear. Again question of cellulitis in RLE. I doubt compartment syndrome. Aspirin was ordered for the patient. Discussed with the [facility] hospitalist further inpatient treatment. Case management has alerted to the [facility] on aging of the patient's poor living conditions. DIAGNOSIS: Confusion, rhabdomyolysis, NSTEMI, pressure ulceration, right lower extremity cellulitis, RHONDA DISPOSITION: Hospitalist will evaluate Critical Care I have personally spent 41 minutes of critical care time in the direct managemen t of this patient. This includes bedside care, interpretation of diagnostic studies, and testing, discussion with consultants, patient, and family members, and other required patient management activities. These 41 minutes is in excess of all separately billable procedures. 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 Hypertension (Chronic) Hypothyroidism (Chronic) Paroxysmal atrial fibrillation Surgical History (Updated 09/13/19 @ 18:19 by Valencia José PA-C) Cataract H/O mastoidectomy Family History (Updated 09/13/19 @ 18:19 by Valencia José PA-C) Other Heart disease Social History (Updated 09/13/19 @ 18:20 by Valencia José PA-C) Current Living Situation: Alone Smoking Status: Former smoker Hx Alcohol Use: Yes Alcohol type: beer Alcohol Intake Frequency Comment: unknown frequency but niece does not think patient still actively drinking Allergies Allergies Allergy/AdvReac Type Severity Reaction Status Date / Time Benzodiazepines Allergy Unknown UNNKNOWN Verified 04/23/17 17:04 Penicillins Allergy Unknown RASH Verified 04/23/17 17:05 Home Meds Home Medications Medication Instructions Recorded Confirmed amlodipine 2.5 mg PO DAILY 09/13/19 09/13/19 aspirin 81 mg PO DAILY 09/13/19 09/13/19 atorvastatin 40 mg PO HS 09/13/19 09/13/19 carvedilol 12.5 mg PO BID 09/13/19 09/13/19 clopidogrel 75 mg PO DAILY 09/13/19 09/13/19 furosemide 20 mg PO DAILY 09/13/19 09/13/19 levothyroxine 100 mcg PO DAILY 09/13/19 09/13/19 lisinopril 10 mg PO DAILY 09/13/19 09/13/19 omeprazole 20 mg PO DAILY 09/13/19 09/13/19 sennosides-docusate sodium 2 tab PO BID PRN 09/13/19 09/13/19 [Senna-S] Results & Data (ED) Vital Signs Vital Signs - 24 hr 09/13/19 12:01 09/13/19 12:15 09/13/19 12:30 Temperature 37.2 C Temperature Source Oral Pulse Rate 113 H 100 H Pulse Rate from SpO2 Sensor 98 H Pulse Rhythm Regular Regular Pulse Strength Normal Respiratory Rate 42 H 48 H Respiratory Effort / Characteristics Labored Retracting Respiratory Depth Shallow Respiratory Pattern Tachypnea Blood Pressure 130/80 130/80 Blood Pressure Mean 96 101 Blood Pressure Position Lying Pulse Oximetry 94 94 Oxygen Delivery Method Room Air Room Air Sepsis Recent Fever Within 48 Hours Yes Sepsis New/Unexplained Change in Mental Status No Sepsis Action Taken by Nursing Previously Notified 09/13/19 12:34 09/13/19 12:45 09/13/19 12:46 Temperature 39.1 C H Temperature Source Rectal Pulse Rate 99 H 98 H 98 H Pulse Rate from SpO2 Sensor 96 H 98 H 91 H Pulse Rhythm Pulse Strength Respiratory Rate 44 H 46 H 46 H Respiratory Effort / Characteristics Respiratory Depth Respiratory Pattern Blood Pressure 125/70 Blood Pressure Mean 87 Blood Pressure Position Pulse Oximetry 95 94 94 Oxygen Delivery Method Sepsis Recent Fever Within 48 Hours Sepsis New/Unexplained Change in Mental Status Sepsis Action Taken by Nursing 09/13/19 13:00 09/13/19 13:01 09/13/19 13:15 Temperature Temperature Source Pulse Rate 95 H 94 H 94 H Pulse Rate from SpO2 Sensor 86 91 H 94 H Pulse Rhythm Pulse Strength Respiratory Rate 42 H 42 H 22 Respiratory Effort / Characteristics Respiratory Depth Respiratory Pattern Blood Pressure 119/65 113/64 Blood Pressure Mean 85 83 Blood Pressure Position Pulse Oximetry 95 95 95 Oxygen Delivery Method Sepsis Recent Fever Within 48 Hours Sepsis New/Unexplained Change in Mental Status Sepsis Action Taken by Nursing 09/13/19 13:16 09/13/19 13:30 09/13/19 13:31 Temperature Temperature Source Pulse Rate 91 H 84 83 Pulse Rate from SpO2 Sensor 91 H 84 84 Pulse Rhythm Pulse Strength Respiratory Rate 40 H 34 H 35 H Respiratory Effort / Characteristics Respiratory Depth Respiratory Pattern Blood Pressure 128/67 Blood Pressure Mean 80 Blood Pressure Position Pulse Oximetry 97 97 97 Oxygen Delivery Method Sepsis Recent Fever Within 48 Hours Sepsis New/Unexplained Change in Mental Status Sepsis Action Taken by Nursing 09/13/19 13:45 09/13/19 13:49 09/13/19 14:00 Temperature Temperature Source Pulse Rate 81 85 86 Pulse Rate from SpO2 Sensor 81 84 83 Pulse Rhythm Pulse Strength Respiratory Rate 34 H 35 H 23 Respiratory Effort / Characteristics Respiratory Depth Respiratory Pattern Blood Pressure 112/56 L 110/56 L Blood Pressure Mean 80 78 Blood Pressure Position Pulse Oximetry 96 98 98 Oxygen Delivery Method Sepsis Recent Fever Within 48 Hours Sepsis New/Unexplained Change in Mental Status Sepsis Action Taken by Nursing 09/13/19 14:01 09/13/19 14:15 09/13/19 14:16 Temperature Temperature Source Pulse Rate 87 85 86 Pulse Rate from SpO2 Sensor 81 85 86 Pulse Rhythm Pulse Strength Respiratory Rate 20 25 H 32 H Respiratory Effort / Characteristics Respiratory Depth Respiratory Pattern Blood Pressure 110/64 Blood Pressure Mean 77 Blood Pressure Position Pulse Oximetry 99 96 96 Oxygen Delivery Method Sepsis Recent Fever Within 48 Hours Sepsis New/Unexplained Change in Mental Status Sepsis Action Taken by Nursing 09/13/19 14:30 09/13/19 14:31 09/13/19 14:45 Temperature Temperature Source Pulse Rate 82 84 83 Pulse Rate from SpO2 Sensor 82 75 82 Pulse Rhythm Pulse Strength Respiratory Rate 33 H 32 H 30 H Respiratory Effort / Characteristics Respiratory Depth Respiratory Pattern Blood Pressure 114/58 L 125/61 Blood Pressure Mean 70 93 Blood Pressure Position Pulse Oximetry 95 95 95 Oxygen Delivery Method Sepsis Recent Fever Within 48 Hours Sepsis New/Unexplained Change in Mental Status Sepsis Action Taken by Nursing 09/13/19 14:46 09/13/19 15:00 09/13/19 15:15 Temperature Temperature Source Pulse Rate 88 85 Pulse Rate from SpO2 Sensor 82 86 85 Pulse Rhythm Pulse Strength Respiratory Rate 31 H 32 H Respiratory Effort / Characteristics Respiratory Depth Respiratory Pattern Blood Pressure 150/62 H Blood Pressure Mean 66 Blood Pressure Position Pulse Oximetry 96 94 68 L Oxygen Delivery Method Sepsis Recent Fever Within 48 Hours Sepsis New/Unexplained Change in Mental Status Sepsis Action Taken by Nursing 09/13/19 15:16 09/13/19 15:55 09/13/19 16:00 Temperature Temperature Source Pulse Rate 93 H 82 Pulse Rate from SpO2 Sensor 81 Pulse Rhythm Pulse Strength Respiratory Rate 23 31 H Respiratory Effort / Characteristics Respiratory Depth Respiratory Pattern Blood Pressure 126/101 H 123/76 Blood Pressure Mean 105 87 Blood Pressure Position Pulse Oximetry 97 Oxygen Delivery Method Sepsis Recent Fever Within 48 Hours Sepsis New/Unexplained Change in Mental Status Sepsis Action Taken by Nursing 09/13/19 16:05 09/13/19 16:15 09/13/19 16:16 Temperature 38.1 C H Temperature Source Rectal Pulse Rate 82 78 Pulse Rate from SpO2 Sensor 79 78 Pulse Rhythm Pulse Strength Respiratory Rate 30 H 30 H Respiratory Effort / Characteristics Respiratory Depth Respiratory Pattern Blood Pressure 111/58 L Blood Pressure Mean 76 Blood Pressure Position Pulse Oximetry 98 97 Oxygen Delivery Method Sepsis Recent Fever Within 48 Hours Sepsis New/Unexplained Change in Mental Status Sepsis Action Taken by Nursing 09/13/19 16:30 09/13/19 16:31 09/13/19 16:45 Temperature Temperature Source Pulse Rate 77 79 78 Pulse Rate from SpO2 Sensor Pulse Rhythm Pulse Strength Respiratory Rate 31 H 32 H 29 H Respiratory Effort / Characteristics Respiratory Depth Respiratory Pattern Blood Pressure 108/59 L 112/55 L Blood Pressure Mean 77 78 Blood Pressure Position Pulse Oximetry Oxygen Delivery Method Sepsis Recent Fever Within 48 Hours Sepsis New/Unexplained Change in Mental Status Sepsis Action Taken by Nursing 09/13/19 16:46 09/13/19 17:00 09/13/19 17:01 Temperature Temperature Source Pulse Rate 79 83 83 Pulse Rate from SpO2 Sensor Pulse Rhythm Pulse Strength Respiratory Rate 31 H 32 H 34 H Respiratory Effort / Characteristics Respiratory Depth Respiratory Pattern Blood Pressure 112/56 L Blood Pressure Mean 79 Blood Pressure Position Pulse Oximetry Oxygen Delivery Method Sepsis Recent Fever Within 48 Hours Sepsis New/Unexplained Change in Mental Status Sepsis Action Taken by Nursing Laboratory Data Result diagrams: 09/13/19 11:15 09/13/19 11:15 Lab Results 09/13/19 09/13/19 09/13/19 Range/Units 11:15 11:15 11:15 WBC 27.63 H (4.8-10.8) K/uL RBC 4.65 L (4.7-6.1) M/uL Hgb 14.2 (14.0-18.0) g/dL Hct 40.9 L (42-52) % MCV 88.0 (80-100) fL MCH 30.5 (25-34) pg MCHC 34.7 (32-36) g/dL RDW Std Deviation 47.4 H (36.4-46.3) fL RDW Coeff of Rayna 14.7 H (11.5-14.5) % Plt Count 248 (130-400) K/uL MPV 10.8 H (7.4-10.4) fL Immature Gran % (Auto) 0.3 % Neut % (Auto) 89.7 % Lymph % (Auto) 4.4 % [place] % (Auto) 5.6 % Eos % (Auto) 0.0 % Baso % (Auto) 0.0 % Neut # (Auto) 24.77 H (1.4-6.5) K/uL Lymph # (Auto) 1.21 (1.2-3.4) K/uL [place] # (Auto) 1.55 H (0.11-0.59) K/uL Eos # (Auto) 0.00 (0-0.5) K/uL Baso # (Auto) 0.01 (0-0.2) K/uL Immature Gran # (Auto) 0.09 H (0.00-0.02) K/uL RBC Morphology Unremarkable PT 13.2 H (9.0-12.0) Seconds INR 1.3 H (0.9-1.1) APTT 30.3 (21.0-31.0) Seconds PTT Ratio 1.1 Sodium 147 H (136-145) mmol/L Potassium 3.7 (3.5-5.1) mmol/L Chloride 113 H (98-107) mmol/L Carbon Dioxide 22 (21-32) mmol/L Anion Gap 12.0 H (3-11) BUN 34 H (7-18) mg/dl Creatinine 1.55 H (0.6-1.4) mg/dl Est Cr Clr Drug Dosing 41.7 ml/min Est GFR ( Amer) 48.3 Est GFR (Non-Af Amer) 41.7 BUN/Creatinine Ratio 21.7 H (10-20) Glucose 122 H (70-99) mg/dl Lactate (0.4-2.0) mmol/L Calcium 9.9 (8.5-10.1) mg/dl Magnesium 2.1 (1.8-2.4) mg/dl Total Bilirubin 1.5 H (0.2-1) mg/dl AST 298 H (15-37) U/L ALT 53 (12-78) U/L Alkaline Phosphatase 88 (45-117) U/L Total Creatine Kinase 6875 H (39-308) U/L Troponin I 50.800 H* (0-0.045) ng/ml Total Protein 8.3 H (6.4-8.2) gm/dl Albumin 3.3 L (3.4-5.0) gm/dl Globulin 5.0 H (2.5-4.0) gm/dl Albumin/Globulin Ratio 0.7 L (0.9-2) Procalcitonin (0-0.5) ng/ml TSH 0.560 (0.300-4.500) uIu/ml Urine Color Urine Appearance (Clear) Urine pH (4.5-7.5) Ur Specific [place] (1.000-1.030) Urine Protein (Negative) Urine Glucose (UA) (Negative) Urine Ketones (Negative) Urine Blood (Negative) Urine Nitrite (Negative) Urine Bilirubin (Negative) Urine Urobilinogen (Negative) Ur Leukocyte Esterase (Negative) Urine WBC (Auto) (0-5) /hpf Urine RBC (Auto) (0-4) /hpf U Hyaline Cast (Auto) (0-5) /lpf U Epithel Cells (Auto) (0-5) /lpf Urine Bacteria (Auto) (Negative) Urine Yeast 09/13/19 09/13/19 09/13/19 Range/Units 11:15 13:49 14:04 WBC (4.8-10.8) K/uL RBC (4.7-6.1) M/uL Hgb (14.0-18.0) g/dL Hct (42-52) % MCV (80-100) fL MCH (25-34) pg MCHC (32-36) g/dL RDW Std Deviation (36.4-46.3) fL RDW Coeff of Rayna (11.5-14.5) % Plt Count (130-400) K/uL MPV (7.4-10.4) fL Immature Gran % (Auto) % Neut % (Auto) % Lymph % (Auto) % [place] % (Auto) % Eos % (Auto) % Baso % (Auto) % Neut # (Auto) (1.4-6.5) K/uL Lymph # (Auto) (1.2-3.4) K/uL [place] # (Auto) (0.11-0.59) K/uL Eos # (Auto) (0-0.5) K/uL Baso # (Auto) (0-0.2) K/uL Immature Gran # (Auto) (0.00-0.02) K/uL RBC Morphology PT (9.0-12.0) Seconds INR (0.9-1.1) APTT (21.0-31.0) Seconds PTT Ratio Sodium (136-145) mmol/L Potassium (3.5-5.1) mmol/L Chloride (98-107) mmol/L Carbon Dioxide (21-32) mmol/L Anion Gap (3-11) BUN (7-18) mg/dl Creatinine (0.6-1.4) mg/dl Est Cr Clr Drug Dosing ml/min Est GFR ( Amer) Est GFR (Non-Af Amer) BUN/Creatinine Ratio (10-20) Glucose (70-99) mg/dl Lactate 2.8 H* (0.4-2.0) mmol/L Calcium (8.5-10.1) mg/dl Magnesium (1.8-2.4) mg/dl Total Bilirubin (0.2-1) mg/dl AST (15-37) U/L ALT (12-78) U/L Alkaline Phosphatase (45-117) U/L Total Creatine Kinase (39-308) U/L Troponin I (0-0.045) ng/ml Total Protein (6.4-8.2) gm/dl Albumin (3.4-5.0) gm/dl Globulin (2.5-4.0) gm/dl Albumin/Globulin Ratio (0.9-2) Procalcitonin 4.91 H (0-0.5) ng/ml TSH (0.300-4.500) uIu/ml Urine Color Brianne Urine Appearance Cloudy A (Clear) Urine pH 5.0 (4.5-7.5) Ur Specific [place] 1.027 (1.000-1.030) Urine Protein 3+ H (Negative) Urine Glucose (UA) Negative (Negative) Urine Ketones Trace H (Negative) Urine Blood 3+ H (Negative) Urine Nitrite Negative (Negative) Urine Bilirubin Negative (Negative) Urine Urobilinogen Negative (Negative) Ur Leukocyte Esterase Negative (Negative) Urine WBC (Auto) 1-5 (0-5) /hpf Urine RBC (Auto) 5-10 H (0-4) /hpf U Hyaline Cast (Auto) 10-30 H (0-5) /lpf U Epithel Cells (Auto) 10-20 H (0-5) /lpf Urine Bacteria (Auto) Negative (Negative) Urine Yeast Not Reportable 09/13/19 Range/Units 16:43 WBC (4.8-10.8) K/uL RBC (4.7-6.1) M/uL Hgb (14.0-18.0) g/dL Hct (42-52) % MCV (80-100) fL MCH (25-34) pg MCHC (32-36) g/dL RDW Std Deviation (36.4-46.3) fL RDW Coeff of Rayna (11.5-14.5) % Plt Count (130-400) K/uL MPV (7.4-10.4) fL Immature Gran % (Auto) % Neut % (Auto) % Lymph % (Auto) % [place] % (Auto) % Eos % (Auto) % Baso % (Auto) % Neut # (Auto) (1.4-6.5) K/uL Lymph # (Auto) (1.2-3.4) K/uL [place] # (Auto) (0.11-0.59) K/uL Eos # (Auto) (0-0.5) K/uL Baso # (Auto) (0-0.2) K/uL Immature Gran # (Auto) (0.00-0.02) K/uL RBC Morphology PT (9.0-12.0) Seconds INR (0.9-1.1) APTT (21.0-31.0) Seconds PTT Ratio Sodium (136-145) mmol/L Potassium (3.5-5.1) mmol/L Chloride (98-107) mmol/L Carbon Dioxide (21-32) mmol/L Anion Gap (3-11) BUN (7-18) mg/dl Creatinine (0.6-1.4) mg/dl Est Cr Clr Drug Dosing ml/min Est GFR ( Amer) Est GFR (Non-Af Amer) BUN/Creatinine Ratio (10-20) Glucose (70-99) mg/dl Lactate 4.5 H* (0.4-2.0) mmol/L Calcium (8.5-10.1) mg/dl Magnesium (1.8-2.4) mg/dl Total Bilirubin (0.2-1) mg/dl AST (15-37) U/L ALT (12-78) U/L Alkaline Phosphatase (45-117) U/L Total Creatine Kinase (39-308) U/L Troponin I (0-0.045) ng/ml Total Protein (6.4-8.2) gm/dl Albumin (3.4-5.0) gm/dl Globulin (2.5-4.0) gm/dl Albumin/Globulin Ratio (0.9-2) Procalcitonin (0-0.5) ng/ml TSH (0.300-4.500) uIu/ml Urine Color Urine Appearance (Clear) Urine pH (4.5-7.5) Ur Specific [place] (1.000-1.030) Urine Protein (Negative) Urine Glucose (UA) (Negative) Urine Ketones (Negative) Urine Blood (Negative) Urine Nitrite (Negative) Urine Bilirubin (Negative) Urine Urobilinogen (Negative) Ur Leukocyte Esterase (Negative) Urine WBC (Auto) (0-5) /hpf Urine RBC (Auto) (0-4) /hpf U Hyaline Cast (Auto) (0-5) /lpf U Epithel Cells (Auto) (0-5) /lpf Urine Bacteria (Auto) (Negative) Urine Yeast Administered Medications Sodium Chloride (Nss 1000ml) 1,000 mls @ 125 mls/hr IV .Q8H VINAY Stop: 10/13/19 16:14 Last Admin: 09/13/19 17:40 Dose: 125 mls/hr Documented by: [id number] Discontinued Medications Aspirin (Aspirin Chew) 324 mg PO NOW STA Stop: 09/13/19 16:58 Last Admin: 09/13/19 17:40 Dose: 324 mg Documented by: [id number] Sodium Chloride (Nss 1000ml) 1,000 mls @ 999 mls/hr IV .Q1H1M VINAY Stop: 09/13/19 13:48 Last Infusion: 09/13/19 13:35 Dose: 0 mls/hr Documented by: [id number] Admin: 09/13/19 12:30 Dose: 999 mls/hr Documented by: [id number] Lactated Ringer's (Lr) 1,000 mls @ 999 mls/hr IV .Q1H1M ONE Stop: 09/13/19 13:48 Last Infusion: 09/13/19 16:06 Dose: 0 mls/hr Documented by: [id number] Admin: 09/13/19 14:46 Dose: 999 mls/hr Documented by: [id number] Sodium Chloride (Nss 1000ml) 500 mls @ 999 mls/hr IV .Q31M ONE Stop: 09/13/19 13:18 Last Infusion: 09/13/19 14:05 Dose: 0 mls/hr Documented by: [id number] Admin: 09/13/19 13:30 Dose: 999 mls/hr Documented by: [id number] Ceftriaxone Sodium (Rocephin) 2,000 mg in 70 mls @ 140 mls/hr IV NOW STA Stop: 09/13/19 13:23 Last Infusion: 09/13/19 15:20 Dose: 0 mls/hr Documented by: [id number] Admin: 09/13/19 14:49 Dose: 140 mls/hr Documented by: [id number] Discharge Plan Visit Data Chief Complaint: Fever Stated Complaint: ams/fever ED Provider: Manoj Lucio Discharge Problem: Fall, Non-ST elevation MS (NSTEMI), Rhabdomyolysis, Pressure ulcer of right hip, Confusion, Cellulitis of right lower extremity, RHONDA (acute kidney injury) Patient Disposition: Admitted As Inpatient Condition: Serious Forms Stand Alone Forms: My [facility] [employer] Prescriptions Prescriptions: No Action atorvastatin 40 mg tablet 40 mg PO HS RF: 0 carvedilol 12.5 mg tablet 12.5 mg PO BID RF: 0 amlodipine 2.5 mg tablet 2.5 mg PO DAILY RF: 0 clopidogrel 75 mg tablet 75 mg PO DAILY RF: 0 aspirin 81 mg tablet,delayed release (DR/EC) 81 mg PO DAILY RF: 0 levothyroxine 100 mcg tablet 100 mcg PO DAILY RF: 0 lisinopril 10 mg tablet 10 mg PO DAILY RF: 0 omeprazole 20 mg capsule,delayed release(DR/EC) 20 mg PO DAILY RF: 0 furosemide 20 mg tablet 20 mg PO DAILY RF: 0 sennosides-docusate sodium [Senna-S] 8.6-50 mg Tablet 2 tab PO BID PRN (Reason: Constipation) RF: 0 Referrals Referrals: PCP,NO [Primary Care Provider] - Discharge Problem: Fall Qualifiers: Encounter type: initial encounter Qualified Code(s): W19.XXXA - Unspecified fall, initial encounter Rhabdomyolysis Qualifiers: Rhabdomyolysis type: traumatic Encounter type: initial encounter Qualified Code(s): T79.6XXA - Traumatic ischemia of muscle, initial encounter Pressure ulcer of right hip Qualifiers: Pressure injury stage: stage 3 Qualified Code(s): L89.213 - Pressure ulcer of right hip, stage 3
[2019-09-13 13:41] LABS: Basophils # (auto) 0.01 K/uL (0-0.2); Immature Granulocytes # (auto) 0.09 K/uL (0.00-0.02); Immature Granulocytes % (auto) 0.3 %; Lymphocytes # (auto) 1.21 K/uL (1.2-3.4); Lymphocytes % (auto) 4.4 %; Monocytes # (auto) 1.55 K/uL (0.11-0.59); Monocytes % (auto) 5.6 %; Neutrophils # (auto) 24.77 K/uL (1.4-6.5); Neutrophils % (auto) 89.7 %
[2019-09-13 13:42] LABS: RBC Morphology Unremarkable
[2019-09-13 13:47] LABS: Albumin Globulin Ratio 0.7 (0.9-2); Bilirubin,Total 1.5 mg/dl (0.2-1); Thyroid Stimulating Hormone 0.56 uIu/ml (0.300-4.500); Total Protein 8.3 gm/dl (6.4-8.2); Troponin I 50.8 ng/ml (0-0.045)
--- NOTE | 2019-09-13 14:28 | XRay Report ---
XR chest 1V portable CLINICAL HISTORY: SEPSIS COMPARISON STUDY: 04/23/2017 FINDINGS: Mild stable grade megaly. Platelike atelectasis left base. Lungs otherwise appear clear. IMPRESSION: Platelike atelectasis left base. Otherwise negative chest. ACT 112: Negative or not required by law. The above report was generated using voice recognition software. It may contain grammatical, syntax or spelling errors. Electronically signed by: Wilmar Mac M.D. 09/13/2019 2:27 PM
--- NOTE | 2019-09-13 14:31 | XRay Report ---
SINGLE VIEW PELVIS; 2 VIEWS RIGHT HIP CLINICAL HISTORY: Fall. Right hip pain. FINDINGS: An AP view of the pelvis with AP and frog-leg views of the right hip are correlated with pe lvic CT dated 04/23/2017. The skeletal structures are osteopenic. There is no radiographic evidence of acute fracture involving the hips or bony pelvis. Mild to moderate degenerative joint space narrowin g is seen in the hips, right greater than left. Degenerative sclerosis is noted in the sacroiliac candelaria nts and pubic symphysis. Lumbosacral spondylosis is partially visualized. Enthesophytes arise from th e anterior superior iliac spines. The overlying soft tissues are normal as imaged. Prostatic calcific ations are noted in the pelvis. No bowel obstruction is seen. IMPRESSION: There is no radiographic evidence of acute fracture involving the hips or bony pelvis. Electronically signed by: Chepe Henriquez M.D. 09/13/2019 2:29 PM
[2019-09-13 14:41] LABS: Appearance Urine Cloudy (Clear); Bacteria Urine Automated Negative (Negative); Blood Urine 3+ (Negative); Glucose Urine UA Negative (Negative); Ketones Urine Trace (Negative); Leukocyte Esterase Urine Negative (Negative); Nitrite Urine Negative (Negative); Protein Urine 3+ (Negative); Specific Gravity Urine 1.027 (1.000-1.030); Urobilinogen Urine Negative (Negative)
[2019-09-13 14:56] LABS: Bilirubin Urine Negative (Negative); Color Urine Amber; Ictotest Urine Negative (Negative)
--- NOTE | 2019-09-13 15:38 | CT Scan Report ---
CT head/brain wo con CLINICAL HISTORY: Confusion status post head trauma COMPARISON STUDY: April 25, 2017 TECHNIQUE: Axial CT of the brain is performed from the vertex to the skull base. IV contrast was not administered for this examination. A dose lowering technique was utilized adhering to the principles of ALARA. CT DOSE: 729.78 mGycm FINDINGS: No intra or extra-axial mass lesions are visualized. There is no CT evidence of acute cortical infarc tion. There is no evidence of midline shift. There is no acute hemorrhage. No calvarial fractures ar e visualized. There are moderate white matter hypodensities likely on a small vessel basis. There is mild ventricular prominence which is felt to be secondary to volume loss. There is no evidence of acute sinusitis. There is occipital scalp edema. IMPRESSION: 1. Occipital scalp edema 2. No acute intracranial findings ACT 112: Negative or not required by law. Electronically signed by: Nick Zimmerman M.D. 09/13/2019 3:36 PM
--- NOTE | 2019-09-13 15:50 | CT Scan Report ---
CT SCAN OF THE CERVICAL SPINE CLINICAL HISTORY: Fall. COMPARISON STUDY: CT of the cervical spine dated 04/23/2017. TECHNIQUE: CT scan of the cervical spine is performed from the skull base to the upper thoracic spine . Images are reviewed in the axial, sagittal, and coronal planes. IV contrast was not administered fo r this examination. A dose lowering technique was utilized adhering to the principles of ALARA. The examination is degraded by inability to properly position the patient. CT DOSE: 483.37 mGycm FINDINGS: Skeletal structures: The skeletal structures are osteopenic. There is no evidence of fracture or subl uxation involving the cervical spine. Vertebral body height is preserved. There is minimal anterolist hesis at C5-C6. Alignment is otherwise maintained. Anterior osteophytes are seen throughout. The odon toid process and lateral masses are intact. The atlantoaxial articulation is preserved noting product marina degenerative change. The spinous processes appear intact. There is moderate to advanced multileve l cervical spondylosis. Uncovertebral and facet arthropathy contribute to neural foraminal stenosis a t most levels. Intervertebral discs: There is moderate to advanced disc space narrowing seen at C6-C7. Moderate disc space narrowing is noted at C4-C5. Mild disc space narrowing is seen at the remaining cervical level s. Central canal: A posterior disc osteophyte complex at C6-C7 likely contribute to acquired compromise of the central canal. Soft tissues: The prevertebral and paraspinous soft tissues are within normal limits. There is athero sclerotic calcification of the carotid bulbs. The thyroid gland is atrophic. Calvarium: The visualized calvarium at the skull base appears intact. Brain parenchyma: Partially visualized brain parenchyma the skull base is within normal limits. Sinuses and mastoids: The visualized paranasal sinuses are clear. The mastoid air cells are well pneu matized. Lung apices: Clear as visualized. IMPRESSION: 1. There is no evidence of fracture or subluxation involving the cervical spine. 2. Osteopenia and spondylotic change as above. ACT 112: Negative or not required by law. Electronically signed by: Chepe Henriquez M.D. 09/13/2019 3:48 PM
[2019-09-13] MEDS ORDERED: ASPIRIN 81 MG CHEW PO STA (16:57)
--- NOTE | 2019-09-13 17:38 | History & Physical Report ---
Date of Service September 13, 2019 Assessment & Plan (1) Confusion: (2) Pressure ulcer of right hip: (3) Fever: Fever, leukocytosis, altered mental status Sepsis Procalcitonin of 4.9 UA does has only 1-5WBC, no leuk est or nitrite Does have reported right buttock ulcer Follow-up blood cultures, urine culture Lactate was 4.5 Got 30 cc/kg Repeat lactate Continue IV fluids Continue broad-spectrum antibiotics. Give one dose of vanc for now as patient has RHONDA. Continue ceftriaxone Wound care consult Right leg appears swollen. Get Dopplers Keep n.p.o. for now until passes dysphagia screen Continue IV LR at 150 cc/h Hold any antihypertensive Get COVID test (4) Paroxysmal atrial fibrillation: Rate controlled Holding coreg for now due low normal BP No anticoagulation due to h/o intracranial bleed (5) History of CVA (cerebrovascular accident): Continue aspirin, plavix and atorvastatin (6) RHONDA (acute kidney injury): Cr is 1.55 Secondary to dehydration Continue IV fluids Avoid nephrotoxins Monitor creatinine Next (7) Rhabdomyolysis: CPK of 6875 Continue IV fluids Monitor (8) Non-ST elevation AL (NSTEMI): Troponin 50.8 EKG reviewed. 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 We will hold off heparin for now as patient has history of intracranial bleed. Trend troponin Cardiology consult (9) Hypothyroidism: Check TSH Continue synthroid (10) Hypertension: BP low normal One hypotensive recording of 86/40 Hold all antihypertensives for now (11) Diabetes: Diet controlled A1c DVT ppx - SCD for now Case management consult PT/OT History of Present Illness 78-year-old man with history of proximal A. 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 Patient is currently confused. History obtained from chart review, other healt hcare providers, [place] report. Patient was reportedly found down at home this morning confused. Last seen well yesterday. Home reported to be in deplorable state with patient covered in feces and urine. EMS reported patient was found on the floor. Patient unable to provide any coherent history. He is currently awake, alert and oriented to person and place but confused. Does appear to have some dysphasia(appears chronic per review and reports) Primary Care Provider: NO PCP Allergies Allergy/AdvReac Type Severity Reaction Status Date / Time Benzodiazepines Allergy Unknown UNNKNOWN Verified 04/23/17 17:04 Penicillins Allergy Unknown RASH Verified 04/23/17 17:05 Home Medications Home Medications Medication Instructions Recorded Confirmed Type amlodipine 2.5 mg PO DAILY 09/13/19 09/13/19 History aspirin 81 mg PO DAILY 09/13/19 09/13/19 History atorvastatin 40 mg PO HS 09/13/19 09/13/19 History carvedilol 12.5 mg PO BID 09/13/19 09/13/19 History clopidogrel 75 mg PO DAILY 09/13/19 09/13/19 History furosemide 20 mg PO DAILY 09/13/19 09/13/19 History levothyroxine 100 mcg PO DAILY 09/13/19 09/13/19 History lisinopril 10 mg PO DAILY 09/13/19 09/13/19 History omeprazole 20 mg PO DAILY 09/13/19 09/13/19 History sennosides-docusate sodium 2 tab PO BID PRN 09/13/19 09/13/19 History [Senna-S] Past Med/Surg History Medical History (Updated 09/13/19 @ 19:26 by Jaleesa Payan MD) Contraindication to anticoagulation therapy 2/2 frequent falls, non-compliance 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 History of CVA (cerebrovascular accident) 2012 septal lobe CVA, 2018 L frontal lobe Hypertension (Chronic) Hypothyroidism (Chronic) Paroxysmal atrial fibrillation Surgical History (Updated 09/13/19 @ 18:19 by Valencia José PA-C) Cataract H/O mastoidectomy Family History (Updated 09/13/19 @ 18:19 by Valencia José PA-C) Other Heart disease Social History (Updated 09/13/19 @ 18:20 by Valencia José PA-C) Current Living Situation: Alone Smoking Status: Former smoker Hx Alcohol Use: Yes Alcohol type: beer Alcohol Intake Frequency Comment: unknown frequency but niece does not think patient still actively drinking Review of Systems Review of Systems: Unobtainable due to cognitive status Physical Exam Constitutional: + ill appearing (chronic); no acute distress ENMT: Dysphasic. Left facial asymetry Respiratory: normal respiratory effort, lungs clear to auscultation Cardiovascular: Rate/Rhythm: regular rate and regular rhythm Heart Sounds: normal S1 and normal S2 Extremities: + pedal edema (Right >>Left) Gastrointestinal (Abdomen): normal bowel sounds, soft, nontender, no hepatosplenomegaly Musculoskeletal: Right leg edema and mild tenderness Skin: Could not assess patient's hip and back. Patient could not move himself and was very difficult turning him to evaluate this. RN later reported patient has a right sided ulcer. Abrasions on both feet. 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 Poor insight. Left facial asymmetry. Power is 4/5 on UE and 4/5 in LLE, 3/5 in RLE Psychiatric: Orientation: alert Confused Results & Data Results & Data ([facility]) Vital Signs (Past 12 Hours) Vital Signs Temp Pulse Resp BP Pulse Ox 09/13/19 17:01 83 34 H 09/13/19 17:00 83 32 H 112/56 L 09/13/19 16:46 79 31 H 09/13/19 16:45 78 29 H 112/55 L 09/13/19 16:31 79 32 H 09/13/19 16:30 77 31 H 108/59 L 09/13/19 16:16 78 30 H 97 09/13/19 16:15 82 30 H 111/58 L 98 09/13/19 16:05 38.1 C H 09/13/19 16:00 82 31 H 123/76 97 09/13/19 15:55 93 H 23 09/13/19 15:16 126/101 H 09/13/19 15:15 68 L 09/13/19 15:00 85 32 H 150/62 H 94 09/13/19 14:46 88 31 H 96 09/13/19 14:45 83 30 H 125/61 95 09/13/19 14:31 84 32 H 95 09/13/19 14:30 82 33 H 114/58 L 95 09/13/19 14:16 86 32 H 96 09/13/19 14:15 85 25 H 110/64 96 09/13/19 14:01 87 20 99 09/13/19 14:00 86 23 110/56 L 98 09/13/19 13:49 85 35 H 112/56 L 98 09/13/19 13:45 81 34 H 96 09/13/19 13:31 83 35 H 97 09/13/19 13:30 84 34 H 128/67 97 09/13/19 13:16 91 H 40 H 97 09/13/19 13:15 94 H 22 113/64 95 09/13/19 13:01 94 H 42 H 95 09/13/19 13:00 95 H 42 H 119/65 95 09/13/19 12:46 98 H 46 H 94 09/13/19 12:45 39.1 C H 98 H 46 H 125/70 94 09/13/19 12:34 99 H 44 H 95 09/13/19 12:30 100 H 48 H 130/80 94 09/13/19 12:01 37.2 C 113 H 42 H 130/80 94 Laboratory Results Laboratory Results - last 24 hr 09/13/19 09/13/19 09/13/19 11:15 11:15 11:15 WBC 27.63 H RBC 4.65 L Hgb 14.2 Hct 40.9 L MCV 88.0 MCH 30.5 MCHC 34.7 RDW Std Deviation 47.4 H RDW Coeff of Rayna 14.7 H Plt Count 248 MPV 10.8 H Immature Gran % (Auto) 0.3 Neut % (Auto) 89.7 Lymph % (Auto) 4.4 [place] % (Auto) 5.6 Eos % (Auto) 0.0 Baso % (Auto) 0.0 Neut # (Auto) 24.77 H Lymph # (Auto) 1.21 [place] # (Auto) 1.55 H Eos # (Auto) 0.00 Baso # (Auto) 0.01 Immature Gran # (Auto) 0.09 H RBC Morphology Unremarkable PT 13.2 H INR 1.3 H APTT 30.3 PTT Ratio 1.1 Sodium 147 H Potassium 3.7 Chloride 113 H Carbon Dioxide 22 Anion Gap 12.0 H BUN 34 H Creatinine 1.55 H Est Cr Clr Drug Dosing 41.7 Est GFR ( Amer) 48.3 Est GFR (Non-Af Amer) 41.7 BUN/Creatinine Ratio 21.7 H Glucose 122 H Lactate Calcium 9.9 Magnesium 2.1 Total Bilirubin 1.5 H AST 298 H ALT 53 Alkaline Phosphatase 88 Total Creatine Kinase 6875 H Troponin I 50.800 H* Total Protein 8.3 H Albumin 3.3 L Globulin 5.0 H Albumin/Globulin Ratio 0.7 L Procalcitonin TSH 0.560 Urine Color Urine Appearance Urine pH Ur Specific [place] Urine Protein Urine Glucose (UA) Urine Ketones Urine Blood Urine Nitrite Urine Bilirubin Urine Urobilinogen Ur Leukocyte Esterase Urine WBC (Auto) Urine RBC (Auto) U Hyaline Cast (Auto) U Epithel Cells (Auto) Urine Bacteria (Auto) Urine Yeast Ethyl Alcohol mg/dL SARS-CoV-2 RNA (RT-PCR) 09/13/19 09/13/19 09/13/19 11:15 13:49 14:04 WBC RBC Hgb Hct MCV MCH MCHC RDW Std Deviation RDW Coeff of Rayna Plt Count MPV Immature Gran % (Auto) Neut % (Auto) Lymph % (Auto) [place] % (Auto) Eos % (Auto) Baso % (Auto) Neut # (Auto) Lymph # (Auto) [place] # (Auto) Eos # (Auto) Baso # (Auto) Immature Gran # (Auto) RBC Morphology PT INR APTT PTT Ratio Sodium Potassium Chloride Carbon Dioxide Anion Gap BUN Creatinine Est Cr Clr Drug Dosing Est GFR ( Amer) Est GFR (Non-Af Amer) BUN/Creatinine Ratio Glucose Lactate 2.8 H* Calcium Magnesium Total Bilirubin AST ALT Alkaline Phosphatase Total Creatine Kinase Troponin I Total Protein Albumin Globulin Albumin/Globulin Ratio Procalcitonin 4.91 H TSH Urine Color Brianne Urine Appearance Cloudy A Urine pH 5.0 Ur Specific [place] 1.027 Urine Protein 3+ H Urine Glucose (UA) Negative Urine Ketones Trace H Urine Blood 3+ H Urine Nitrite Negative Urine Bilirubin Negative Urine Urobilinogen Negative Ur Leukocyte Esterase Negative Urine WBC (Auto) 1-5 Urine RBC (Auto) 5-10 H U Hyaline Cast (Auto) 10-30 H U Epithel Cells (Auto) 10-20 H Urine Bacteria (Auto) Negative Urine Yeast Not Reportable Ethyl Alcohol mg/dL SARS-CoV-2 RNA (RT-PCR) 09/13/19 09/13/19 09/13/19 15:06 16:43 19:13 WBC RBC Hgb Hct MCV MCH MCHC RDW Std Deviation RDW Coeff of Rayna Plt Count MPV Immature Gran % (Auto) Neut % (Auto) Lymph % (Auto) [place] % (Auto) Eos % (Auto) Baso % (Auto) Neut # (Auto) Lymph # (Auto) [place] # (Auto) Eos # (Auto) Baso # (Auto) Immature Gran # (Auto) RBC Morphology PT INR APTT PTT Ratio Sodium Potassium Chloride Carbon Dioxide Anion Gap BUN Creatinine Est Cr Clr Drug Dosing Est GFR ( Amer) Est GFR (Non-Af Amer) BUN/Creatinine Ratio Glucose Lactate 4.5 H* Calcium Magnesium Total Bilirubin AST ALT Alkaline Phosphatase Total Creatine Kinase Troponin I Total Protein Albumin Globulin Albumin/Globulin Ratio Procalcitonin TSH Urine Color Urine Appearance Urine pH Ur Specific [place] Urine Protein Urine Glucose (UA) Urine Ketones Urine Blood Urine Nitrite Urine Bilirubin Urine Urobilinogen Ur Leukocyte Esterase Urine WBC (Auto) Urine RBC (Auto) U Hyaline Cast (Auto) U Epithel Cells (Auto) Urine Bacteria (Auto) Urine Yeast Ethyl Alcohol mg/dL Pending SARS-CoV-2 RNA (RT-PCR) Pending Diagnostic Findings CT head FINDINGS: No intra or extra-axial mass lesions are visualized. There is no CT evidence of acute cortical infarction. There is no evidence of midline shift. There is no acute hemorrhage. No calvarial fractures are visualized. There are moderate white matter hypodensities likely on a small vessel basis. There is mild ventricular prominence which is felt to be secondary to volume loss. There is no evidence of acute sinusitis. There is occipital scalp edema. IMPRESSION: 1. Occipital scalp edema 2. No acute intracranial findings (1) Pressure ulcer of right hip Pressure injury stage: stage 3 Qualified Code(s): L89.213 - Pressure ulcer of right hip, stage 3 (2) Rhabdomyolysis Encounter type: initial encounter Rhabdomyolysis type: traumatic Qualified Code(s): T79.6XXA - Traumatic ischemia of muscle, initial encounter
[2019-09-13] MEDS ORDERED: DOCUSATE SODIUM/SENNA 50/8.6MG TAB PO PRN (17:47)
[2019-09-13] MEDS ORDERED: POLYETHYLENE (MIRALAX) 17 GM PACK PO PRN (19:53)
[2019-09-13] MEDS ORDERED: VANCOMYCIN CONSULT ACTIVE PRN (20:09)
[2019-09-13] MEDS ORDERED: ROCEPHIN: PHARMACY CONSULT IN PROGRESS PRN (20:09)
[2019-09-13] MEDS: LACTATED RINGER'S 1,000 ML IV SCH (20:12)
[2019-09-13] MEDS ORDERED: VANCOMYCIN HCL 1,750 MG in SODIUM CHLORIDE 0.9% 500 ML IV ONE (20:30)
--- NOTE | 2019-09-13 20:56 | Ultrasound Report ---
ULTRASOUND RIGHT LOWER EXTREMITY VENOUS CLINICAL HISTORY: Right leg pain. COMPARISON STUDY: No priors. TECHNIQUE: Real-time, grayscale, and color Doppler sonography of the deep veins of the right lower ex tremity was performed from the inguinal crease to the calf. Compression and augmentation were utilize d. FINDINGS: There is no sonographic evidence of deep venous thrombosis identified in the right lower ex tremity. The common femoral, superficial femoral, and popliteal veins are patent and normally matias sible. The greater saphenous vein and the profunda femoris vein at the junction with the common femor al vein are clear. The visualized calf veins are patent. IMPRESSION: There is no sonographic evidence of deep venous thrombosis identified in the right lower extremity. ACT 112: Negative or not required by law. Electronically signed by: Chepe Henriuqez M.D. 09/13/2019 8:55 PM
[2019-09-13 20:57] LABS: Amphetamines+Metham, Urine Neg (Neg); Barbiturates, Urine Neg (Neg); Benzodiazepine, Urine Neg (Neg); Cocaine, Urine Neg (Neg); MDMA (Ecstacy), Urine Neg (Neg); Methadone, Urine Neg (Neg); Opiate, Urine Neg (Neg); Phencyclidine, Urine Neg (Neg)
[2019-09-13] MEDS ORDERED: carvediloL 12.5 MG TAB PO SCH (21:00)
[2019-09-13] MEDS: ATORVASTATIN 40 MG TAB PO SCH (21:36)
--- NOTE | 2019-09-13 21:53 | Pharmacy Report ---
Pharmacy Abx Initial Consult - Date of Service September 13, 2019 - Pharmacy Dosing Scope Date of Consult: 09/13/19 Consultation requested by: Valencia José PA-C Pharmacy is consulted to initiate Vancomycin IV dosing therapy, order appropriate labs and adjust drug dose/frequency. - Subjective The patient is a 78 year old M admitted on 09/13/19 17:45. - Objective Height: 6 ft Weight: 90.5 kg Vital Signs (Past 12hrs): Vital Signs Temp Pulse Pulse Pulse Resp BP BP 09/13/19 20:23 36.3 C L 79 18 120/69 09/13/19 20:05 36.3 C L 76 20 120/69 09/13/19 18:46 86 32 H 09/13/19 18:45 80 30 H 110/54 L 09/13/19 18:31 83 29 H 09/13/19 18:30 80 29 H 119/63 09/13/19 18:16 80 29 H 09/13/19 18:15 78 28 H 114/59 L 09/13/19 18:01 78 27 H 86/40 L 09/13/19 18:00 84 34 H 09/13/19 17:46 85 30 H 09/13/19 17:45 83 27 H 113/53 L 09/13/19 17:31 81 34 H 09/13/19 17:30 79 32 H 113/55 L 09/13/19 17:16 87 23 09/13/19 17:15 89 34 H 122/76 09/13/19 17:01 83 34 H 09/13/19 17:00 83 32 H 112/56 L 09/13/19 16:46 79 31 H 09/13/19 16:45 78 29 H 112/55 L 09/13/19 16:31 79 32 H 09/13/19 16:30 77 31 H 108/59 L 09/13/19 16:16 78 30 H 09/13/19 16:15 82 30 H 111/58 L 09/13/19 16:05 38.1 C H 09/13/19 16:00 82 31 H 123/76 09/13/19 15:55 93 H 23 09/13/19 15:16 126/101 H 09/13/19 15:15 09/13/19 15:00 85 32 H 150/62 H 09/13/19 14:46 88 31 H 09/13/19 14:45 83 30 H 125/61 09/13/19 14:31 84 32 H 09/13/19 14:30 82 33 H 114/58 L 09/13/19 14:16 86 32 H 09/13/19 14:15 85 25 H 110/64 09/13/19 14:01 87 20 09/13/19 14:00 86 23 110/56 L 09/13/19 13:49 85 35 H 112/56 L 09/13/19 13:45 81 34 H 09/13/19 13:31 83 35 H 09/13/19 13:30 84 34 H 128/67 09/13/19 13:16 91 H 40 H 09/13/19 13:15 94 H 22 113/64 09/13/19 13:01 94 H 42 H 09/13/19 13:00 95 H 42 H 119/65 09/13/19 12:46 98 H 46 H 09/13/19 12:45 39.1 C H 98 H 46 H 125/70 09/13/19 12:34 99 H 44 H 09/13/19 12:30 100 H 48 H 130/80 09/13/19 12:01 37.2 C 113 H 42 H 130/80 Pulse Ox 09/13/19 20:23 97 09/13/19 20:05 97 09/13/19 18:46 09/13/19 18:45 09/13/19 18:31 09/13/19 18:30 09/13/19 18:16 09/13/19 18:15 09/13/19 18:01 09/13/19 18:00 09/13/19 17:46 96 09/13/19 17:45 96 09/13/19 17:31 09/13/19 17:30 09/13/19 17:16 09/13/19 17:15 09/13/19 17:01 09/13/19 17:00 09/13/19 16:46 09/13/19 16:45 09/13/19 16:31 09/13/19 16:30 09/13/19 16:16 97 09/13/19 16:15 98 09/13/19 16:05 09/13/19 16:00 97 09/13/19 15:55 09/13/19 15:16 09/13/19 15:15 68 L 09/13/19 15:00 94 09/13/19 14:46 96 09/13/19 14:45 95 09/13/19 14:31 95 09/13/19 14:30 95 09/13/19 14:16 96 09/13/19 14:15 96 09/13/19 14:01 99 09/13/19 14:00 98 09/13/19 13:49 98 09/13/19 13:45 96 09/13/19 13:31 97 09/13/19 13:30 97 09/13/19 13:16 97 09/13/19 13:15 95 09/13/19 13:01 95 09/13/19 13:00 95 09/13/19 12:46 94 09/13/19 12:45 94 09/13/19 12:34 95 09/13/19 12:30 94 09/13/19 12:01 94 Lab Results (24hrs): Laboratory Tests (24 Hours) 09/13/19 09/13/19 09/13/19 11:15 11:15 11:15 WBC 27.63 H Neut # (Auto) 24.77 H Creatinine 1.55 H Est Cr Clr Drug Dosing 41.7 Total Creatine Kinase 6875 H Procalcitonin 4.91 H Micro Results: 09/13/19 14:04 Urine Culture - Pending Urine,Straight Cath 09/13/19 13:11 Aerobic Blood Culture - Pending Blood Anaerobic Blood Culture - Pending 09/13/19 13:44 Aerobic Blood Culture - Pending Blood Anaerobic Blood Culture - Pending - Assessment & Plan Assessment 78 year old M admitted with fever, sepsis. Patient has diabetes and history chronic pressure ulcer. Started on Vancomycin + Rocephin. Patient with RHONDA, provider requested only one dose of Vancomycin for now. Plan Vancomycin IV * Estimated PK Parameters: not calculated due to RHONDA. * Loading dose: 1750 mg IV (19 mg/kg) x 1 dose ordered tonight. * Maintenance dose: not ordered d/t RHONDA * Goal trough level: 15 to 20 mcg/mL * Random level ordered for 09/14/19 at 9 am around 12 hrs after loading dose. Pharmacy will continue to follow and will adjust dose/frequency as necessary. Thank you.
[2019-09-14] MEDS: LACTATED RINGER'S 1,000 ML IV SCH ×4 (02:43→23:41)
[2019-09-14 02:56] LABS: Albumin Level 2.2 gm/dl (3.4-5.0); BUN Creatinine Ratio 39.3 (10-20); Calcium 8.1 mg/dl (8.5-10.1); Creatinine Clr Calc Pharmacy 81.9 ml/min; Est GFR (African American) 98.3; Est GFR (Non-African American) 84.8; Potassium 3.7 mmol/L (3.5-5.1)
[2019-09-14 02:57] LABS: Hematocrit (blood only) 32.9 % (42-52); Hemoglobin 11.3 g/dL (14.0-18.0); Mean Corpuscular Hemoglobin 30.3 pg (25-34); Mean Corpuscular Hgb Conc 34.3 g/dL (32-36); Mean Corpuscular Volume 88.2 fL (80-100); Mean Platelet Volume 10.4 fL (7.4-10.4); Platelet Count 177 K/uL (130-400); RDW Standard Deviation 48.5 fL (36.4-46.3); Red Blood Count 3.73 M/uL (4.7-6.1); White Blood Count 21.96 K/uL (4.8-10.8)
[2019-09-14 03:13] LABS: Albumin Globulin Ratio 0.6 (0.9-2); Bilirubin,Total 0.8 mg/dl (0.2-1); Globulin 3.5 gm/dl (2.5-4.0); Total Protein 5.7 gm/dl (6.4-8.2); Troponin I 30.3 ng/ml (0-0.045)
--- NOTE | 2019-09-14 05:06 | Electrocardiogram Report ---
Test Reason : Blood Pressure : / mmHG Vent. Rate : 087 BPM Atrial Rate : 087 BPM P-R Int : 184 ms QRS Dur : 106 ms QT Int : 370 ms P-R-T Axes : 042 -14 -12 degrees QTc Int : 445 ms Normal sinus rhythm Septal infarct , age undetermined Inferior infarct Abnormal ECG When compared with ECG of 24-APR-2017 07:36, Premature atrial complexes are no longer Present QRS duration has increased Septal infarct is now Present Criteria for Inferior infarct is now Present Confirmed by Ace Morgan ([id number]) on 09/14/2019 5:06:05 AM Referred By: Confirmed By:Ace Morgan
[2019-09-14] MEDS: LEVOTHYROXINE SODIUM 100 MCG TABLET PO SCH (05:44)
[2019-09-14 06:01] LABS: Estimated Average Glucose 117 mg/dl; Hemoglobin A1C 5.7 % (4.5-5.6)
--- NOTE | 2019-09-14 08:56 | Cardiology Consultation ---
Date of Consultation September 14, 2019 Assessment & Plan (1) Rhabdomyolysis: (2) Non-ST elevation [place] (NSTEMI): (3) Acute renal insufficiency: (4) Sepsis: (5) Dehydration: (6) Pressure ulcer of right hip: Complex 78-year-old patient admitted with fall, rhabdomyolysis, sepsis, and elevated troponin. Beta-maco placed on hold due to borderline hypotension on exam. With history of paroxysmal atrial fibrillation, recommend restarting beta-maco at reduced dose. I will transition to metoprolol which has less antihypertensive effects. Elevated troponin likely multifactorial related to hypotension, rhabdomyolysis, acute renal insufficiency and sepsis syndrome. Underlying coronary disease with demand ischemia suspected, however, a small plaque rupture event cannot be excluded at this time. Hemoglobin has trended downward to baseline since admission with IV hydration. No signs/symptoms of GI/ blood loss. Carries history of traumatic intracranial bleed however, no history of spontaneous hemorrhage. Cautiously initiate IV heparin for 24 to 48 hours. A resting 2D transthoracic echocardiogram will be performed when COVID results are available. If there are no significant regional wall motion abnormalities or decline in LV systolic function, IV heparin will likely be discontinued. Continue dual antiplatelet therapy as previously ordered. IV hydration and antibiotics as per internal medicine. Consider transition to half-normal saline or D5W due to progressive hypernatremia. Repeat CPK and BMP in a.m. 35 minutes critical care time spent evaluating patient, reviewing data/record, formulating plan of care, and order placement. History of Present Illness Reason for Consultation: Elevated troponin Requesting Physician: Dr. Payan Attending Physician: Jaleesa Payan MD History of Present Illness 78-year-old male patient with history of paroxysmal atrial fibrillation, diabetes, cerebrovascular accident, intracranial hemorrhage, and hypertension. Patient not anticoagulated in the past due to compliance issues, falls, intracranial hemorrhage, and history of alcoholism. Patient was found down at home by family. Previously seen by family 24 hours earlier. Noted to be in a deplorable state, covered in feces and urine. Lab studies demonstrate dehydration, rhabdomyolysis, and elevated troponin. Febrile on admission with elevated white blood cell count. Cultures pending. Patient seen and examined at the bedside. Denies chest pain, palpitations, or shortness of breath. Poor historian. Answers some questions appropriately, however, he is somewhat tangential. Denies orthopnea, or PND. Notes right lower extremity edema which is chronic. Venous duplex negative for DVT. Offers no complaints currently. Telemetry demonstrates sinus rhythm. Beta-maco placed on hold since admission due to borderline hypotension. Allergies Allergy/AdvReac Type Severity Reaction Status Date / Time Benzodiazepines Allergy Unknown UNNKNOWN Verified 04/23/17 17:04 Penicillins Allergy Unknown RASH Verified 04/23/17 17:05 Home Medications Home Medications Medication Instructions Recorded Confirmed Type amlodipine 2.5 mg PO DAILY 09/13/19 09/13/19 History aspirin 81 mg PO DAILY 09/13/19 09/13/19 History atorvastatin 40 mg PO HS 09/13/19 09/13/19 History carvedilol 12.5 mg PO BID 09/13/19 09/13/19 History clopidogrel 75 mg PO DAILY 09/13/19 09/13/19 History furosemide 20 mg PO DAILY 09/13/19 09/13/19 History levothyroxine 100 mcg PO DAILY 09/13/19 09/13/19 History lisinopril 10 mg PO DAILY 09/13/19 09/13/19 History omeprazole 20 mg PO DAILY 09/13/19 09/13/19 History sennosides-docusate sodium 2 tab PO BID PRN 09/13/19 09/13/19 History [Senna-S] Patient History Medical History Contraindication to anticoagulation therapy 2/2 frequent falls, non-compliance 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 History of CVA (cerebrovascular accident) 2011 septal lobe CVA, 2018 L frontal lobe Hypertension (Chronic) Hypothyroidism (Chronic) Paroxysmal atrial fibrillation Surgical History Cataract H/O mastoidectomy Family History Other Heart disease Social History Preferred Language: Tristanian Communication Ability: Impaired Tugger Operator Required: No Current Living Situation: Alone Other Information That Helps Us Care for You: No Feels Safe at Home: Yes Safety Concerns: Feels Safe At This Time Smoking Status: Unknown if ever smoked Hx Alcohol Use: No Hx Substance Use: No Review of Systems Review of Systems: Unobtainable due to cognitive status Physical Exam Constitutional: + ill appearing; no acute distress Respiratory: normal respiratory effort; no respiratory distress, no labored breathing and no retractions Auscultation: no crackles, no rales, no rhonchi and no wheezes Cardiovascular: Rate/Rhythm: regular rate and regular rhythm Heart Sounds: normal S1 and normal S2; no murmur Vessels: radial pulses present; no JVD and no carotid bruit Gastrointestinal (Abdomen): Inspection/Auscultation: abdomen normal to inspection and normal bowel sounds; abdomen not distended Percussion/Palpation: abdomen soft; abdomen nontender, no guarding and abdomen not rigid Skin: no rashes, warm and dry Neurologic: no focal motor deficits (Left-sided facial droop) Results & Data ([facility]) Vital Signs (Past 12 Hours) Vital Signs Temp Pulse Resp BP Pulse Ox 09/14/19 04:27 36.4 C L 72 16 115/68 97 09/14/19 00:25 36.7 C 77 16 106/57 L 98 (1) Sepsis Sepsis type: sepsis due to unspecified organism Sepsis acute organ dysfunction status: with acute organ dysfunction Severe sepsis acute organ dysfunction type: acute renal failure Acute renal failure type: unspecified Severe sepsis shock status: without septic shock Qualified Code(s): A41.9 - Sepsis, unspecified organism; R65.20 - Severe sepsis without septic shock; N17.9 - Acute kidney failure, unspecified (2) Rhabdomyolysis Encounter type: initial encounter Rhabdomyolysis type: traumatic Qualified Code(s): T79.6XXA - Traumatic ischemia of muscle, initial encounter (3) Pressure ulcer of right hip Pressure injury stage: stage 3 Qualified Code(s): L89.213 - Pressure ulcer of right hip, stage 3
[2019-09-14] MEDS ORDERED: AMLODIPINE BESYLATE 5 MG TAB PO SCH (09:00)
[2019-09-14] MEDS: ASPIRIN 81 MG ECTAB PO SCH (09:41)
[2019-09-14] MEDS: CLOPIDOGREL BISULFATE 75 MG TAB PO SCH (09:41)
[2019-09-14] MEDS: PANTOprazole 40 MG TAB PO SCH (09:42)
[2019-09-14] MEDS ORDERED: Heparin IV Standard *NO* Bolus IV SCH (11:00)
[2019-09-14] MEDS ORDERED: VANCOMYCIN HCL 1,250 MG in SODIUM CHLORIDE 0.9% 250 ML IV ONE (11:00)
[2019-09-14] MEDS: METOPROLOL TARTRATE 25 MG TAB PO SCH ×2 (11:57→20:49)
[2019-09-14] MEDS: HEPARIN SODIUM/DEXTROSE 25,000 UNITS/500 ML BAG IV SCH (12:18)
--- NOTE | 2019-09-14 12:40 | Hospitalist Progress Note ---
Date of Service September 14, 2019 Assessment & Plan (1) Confusion: (2) Pressure ulcer of right hip: (3) Fever: Fever, leukocytosis, altered mental status Sepsis Procalcitonin of 4.9 UA does has only 1-5WBC, no leuk est or nitrite Does have reported right buttock ulcer Urine culture negative so far Blood culture pending Lactate was 4.5. Resolved with IVF Got 30 cc/kg Continue IV fluids Continue broad-spectrum antibiotics. Wound care consult for wounds Right leg appears swollen. Negative dopplers RN reported patient failed bedside dys Continue IV LR Hold any antihypertensive COVID test pending Get TRAVEL INSURANCE AGENT evaluation prior to resumption of po diet (4) Paroxysmal atrial fibrillation: Rate controlled Holding coreg for now due low normal BP [employer] recommendations noted Changed to metoprolol (5) History of CVA (cerebrovascular accident): Continue aspirin, plavix and atorvastatin (6) RHONDA (acute kidney injury): Cr was 1.55 on admission Secondary to dehydration Currently resolved Continue IV fluids especially while NPO Avoid nephrotoxins Monitor creatinine (7) Rhabdomyolysis: CPK of 6875 -->4645 Continue IV fluids Monitor (8) Non-ST elevation [place] (NSTEMI): Troponin 50.8-->44.5-->30.3 EKG reviewed. ER physician already discussed with certified public accountant. [employer] recommendations noted Currently on iv heparin Monitor for signs of bleeding (9) Hypothyroidism: TSH 0.56 Continue synthroid (10) Hypertension: BP stable now One hypotensive recording of 86/40 Hold all antihypertensives for now (11) Diabetes: Diet controlled A1c DVT ppx -on heparin for now Discussed concerns of poor care at home with CM. NOAH will evaluate PT/OT Admission and Anticipated Discharge Date Admission Date: September 13, 2019 Subjective Patient seen and examined. Patient is alert, oriented x3. Confusion has resolved. Reports feeling thirsty Cannot provide much history surrounding his being found down yesterday prior to admission. Denied any fevers,chills, nausea, vomiting Denied any abd pain, diarrhea, constipation Reports generalized weakness over time Denied any cough or chest pain or shortness of breath Physical Exam Constitutional: + ill appearing (chronic); no acute distress Respiratory: normal respiratory effort, lungs clear to auscultation Cardiovascular: Rate/Rhythm: regular rate and regular rhythm Heart Sounds: normal S1 and normal S2 Extremities: + pedal edema (Right >>Left) Gastrointestinal (Abdomen): normal bowel sounds, soft, nontender, no hepatosplenomegaly Musculoskeletal: Ecchymotic bruise with skin slough on right hip Occipital wound Wound on feet Bilateral leg edema R>L Neurologic: AOx3, left facial asymmetry Power is 4/5 in UE, 4/5 in LLE, 3/5 in RLE Generalized weakness Psychiatric: Orientation: alert Results & Data Results & Data ([facility]) Vital Signs (Past 12 Hours) Vital Signs Temp Pulse Resp BP Pulse Ox 09/14/19 12:03 36.9 C 78 20 123/84 99 09/14/19 04:27 36.4 C L 72 16 115/68 97 (1) Pressure ulcer of right hip Pressure injury stage: stage 3 Qualified Code(s): L89.213 - Pressure ulcer of right hip, stage 3 (2) Fever Fever type: unspecified Qualified Code(s): R50.9 - Fever, unspecified (3) Rhabdomyolysis Encounter type: initial encounter Rhabdomyolysis type: traumatic Qualified Code(s): T79.6XXA - Traumatic ischemia of muscle, initial encounter
[2019-09-14] MEDS: cefTRIAXone SODIUM 2,000 MG in DEXTROSE 5% 50 ML IV SCH (15:12)
[2019-09-14 18:52] LABS: Partial Thromboplastin Ratio 2.3
[2019-09-14 18:59] LABS: Partial Thromboplastin Time 65.4 Seconds (21.0-31.0)
[2019-09-14] MEDS: ATORVASTATIN 40 MG TAB PO SCH (20:49)
[2019-09-14] MEDS: VANCOMYCIN HCL 1,250 MG in SODIUM CHLORIDE 0.9% 250 ML IV SCH (23:49)
[2019-09-15] MEDS: HEPARIN SODIUM/DEXTROSE 25,000 UNITS/500 ML BAG IV SCH ×3 (02:24→21:26)
[2019-09-15] MEDS: LEVOTHYROXINE SODIUM 100 MCG TABLET PO SCH (05:17)
[2019-09-15] MEDS: LACTATED RINGER'S 1,000 ML IV SCH (05:17)
--- NOTE | 2019-09-15 07:21 | Electrocardiogram Report ---
Test Reason : Blood Pressure : / mmHG Vent. Rate : 071 BPM Atrial Rate : 071 BPM P-R Int : 166 ms QRS Dur : 082 ms QT Int : 378 ms P-R-T Axes : 014 012 -29 degrees QTc Int : 410 ms Normal sinus rhythm Inferior infarct , age undetermined Nonspecific ST abnormality Abnormal ECG When compared with ECG of 13-SEP-2019 13:53, QRS duration has decreased Confirmed by Ace Morgan ([id number]) on 09/15/2019 7:20:45 AM Referred By: REFERRED SELF Confirmed By:Ace Morgan
[2019-09-15] MEDS: METOPROLOL TARTRATE 25 MG TAB PO SCH ×2 (08:19→20:18)
[2019-09-15] MEDS: D5W AND 1/2NSS 1,000 ML IV SCH ×2 (08:19→14:41)
[2019-09-15] MEDS ORDERED: COUGH DROP (SUGAR FREE) LOZ 24 LOZ/1 BOX BUCCAL ONE (08:20)
[2019-09-15] MEDS: ASPIRIN 81 MG ECTAB PO SCH (08:21)
[2019-09-15] MEDS: PANTOprazole 40 MG TAB PO SCH (08:22)
[2019-09-15] MEDS: CLOPIDOGREL BISULFATE 75 MG TAB PO SCH (08:22)
[2019-09-15] MEDS ORDERED: NURSING DECISION MEDICATION ONE (08:25)
[2019-09-15] MEDS ORDERED: COUGH DROP (SUGAR FREE) LOZ 24 LOZ/1 BOX BUCCAL PRN (08:33)
--- NOTE | 2019-09-15 10:51 | Hospitalist Progress Note ---
Date of Service September 15, 2019 Assessment & Plan (1) Confusion: (2) Pressure ulcer of right hip: (3) Fever: Fever, leukocytosis, altered mental status Sepsis Metabolic encephalopathy, improved Procalcitonin of 4.9 UA does has only 1-5WBC, no leuk est or nitrite Does have reported right buttock ulcer Urine culture negative so far Blood culture negative so far Lactate was 4.5. Resolved with IVF Got 30 cc/kg Continue IV fluids Continue broad-spectrum antibiotics. Wound care consult for wounds Right leg appears swollen. Negative dopplers Started po diet after SURGICAL SERVICES TECH evaluation Currently on IVF D5 saline Continue to hold antihypertensive COVID test negative. Isolation discontinued Leukocytosis improving (4) Paroxysmal atrial fibrillation: Rate controlled Holding coreg for now due low normal BP Caramel Coloring Operator recommendations noted Continue metoprolol (5) History of CVA (cerebrovascular accident): Continue aspirin, plavix and atorvastatin (6) RHONDA (acute kidney injury): Cr was 1.55 on admission Secondary to dehydration Resolved Awaiting AM labs today Continue IVF for now Avoid nephrotoxins Monitor creatinine (7) Rhabdomyolysis: CPK of 6875 -->4645 -->1374 Continue IV fluids until good oral intake Monitor (8) Non-ST elevation [place] (NSTEMI): Troponin 50.8-->44.5-->30.3 EKG reviewed. Caramel Coloring Operator recommendations noted Currently on iv heparin to complete 48h therapy No signs of bleeding Get 2D Echo (9) Hypothyroidism: TSH 0.56 Continue synthroid (10) Hypertension: BP stable now One hypotensive recording of 86/40 Holding antihypertensives for now (11) Diabetes: Diet controlled A1c DVT ppx -on heparin for now Discussed concerns of poor care at home with CM. OOA will evaluate PT/OT evaluation Admission and Anticipated Discharge Date Admission Date: September 13, 2019 Physical Exam Constitutional: + ill appearing (chronic); no acute distress Awake and alert. Respiratory: normal respiratory effort, lungs clear to auscultation Cardiovascular: Rate/Rhythm: regular rate and regular rhythm Heart Sounds: normal S1 and normal S2 Extremities: + pedal edema (Right >>Left) Gastrointestinal (Abdomen): normal bowel sounds, soft, nontender, no hepatosplenomegaly Skin: Ecchymotic bruise with skin slough on right hip with clean dressing Occipital wound Wound on feet Bilateral leg edema R Neurologic: Alert and oriented to person, place, date. Power is 4/5 in both UE, 3/5 in RLE, 4/5 in LLE Psychiatric: Orientation: alert Results & Data Results & Data ([facility]) Vital Signs (Past 12 Hours) Vital Signs Temp Pulse Resp BP BP Pulse Ox 09/15/19 08:00 36.7 C 69 20 136/69 95 09/15/19 04:29 36.7 C 70 16 117/89 99 09/14/19 23:45 36.7 C 63 18 117/71 97 (1) Pressure ulcer of right hip Pressure injury stage: stage 3 Qualified Code(s): L89.213 - Pressure ulcer of right hip, stage 3 (2) Fever Fever type: unspecified Qualified Code(s): R50.9 - Fever, unspecified (3) Rhabdomyolysis Encounter type: initial encounter Rhabdomyolysis type: traumatic Qualified Code(s): T79.6XXA - Traumatic ischemia of muscle, initial encounter
--- NOTE | 2019-09-15 11:15 | Cardiology Progress Note ---
Date of Service September 15, 2019 Assessment & Plan (1) Rhabdomyolysis: (2) Non-ST elevation [place] (NSTEMI): (3) Acute renal insufficiency: (4) Sepsis: (5) Dehydration: (6) Pressure ulcer of right hip: Complex 78-year-old patient admitted with fall, rhabdomyolysis, sepsis, and elevated troponin. . Elevated troponin likely multifactorial related to hypotension, rhabdomyolysis, acute renal insufficiency and sepsis syndrome. Initial EKGs and presentation not suspicious for acute coronary syndrome. COVID testing negative today, echocardiogram will be performed Continue current therapies including low-dose beta-maco Subjective Chart medications and telemetry reviewed Results & Data Vital Signs (Past 12 Hours) Vital Signs Temp Pulse Resp BP BP Pulse Ox 09/15/19 08:00 36.7 C 69 20 136/69 95 09/15/19 04:29 36.7 C 70 16 117/89 99 09/14/19 23:45 36.7 C 63 18 117/71 97 Laboratory Results Laboratory Results - last 24 hr 09/13/19 09/14/19 09/14/19 15:06 12:11 18:06 APTT 65.4 H* PTT Ratio 2.3 POC Glucose 93 SARS-CoV-2 RNA (RT-PCR) NEGATIVE (1) Rhabdomyolysis Encounter type: initial encounter Rhabdomyolysis type: traumatic Qualified Code(s): T79.6XXA - Traumatic ischemia of muscle, initial encounter (2) Sepsis Sepsis type: sepsis due to unspecified organism Sepsis acute organ dysfunction status: with acute organ dysfunction Severe sepsis acute organ dysfunction type: acute renal failure Acute renal failure type: unspecified Severe sepsis shock status: without septic shock Qualified Code(s): A41.9 - Sepsis, unspecified organism; R65.20 - Severe sepsis without septic shock; N17.9 - Acute kidney failure, unspecified (3) Pressure ulcer of right hip Pressure injury stage: stage 3 Qualified Code(s): L89.213 - Pressure ulcer of right hip, stage 3
[2019-09-15] MEDS: VANCOMYCIN HCL 1,250 MG in SODIUM CHLORIDE 0.9% 250 ML IV SCH (11:26)
[2019-09-15] MEDS ORDERED: PERFLUTREN LIPID MICROSPHERE (DEFINITY) IV ONE (11:32)
[2019-09-15 11:38] LABS: Hematocrit (blood only) 33.6 % (42-52); Hemoglobin 10.8 g/dL (14.0-18.0); Mean Corpuscular Hemoglobin 29.1 pg (25-34); Mean Corpuscular Hgb Conc 32.1 g/dL (32-36); Mean Corpuscular Volume 90.6 fL (80-100); Mean Platelet Volume 10.7 fL (7.4-10.4); Platelet Count 174 K/uL (130-400); RDW Coefficient of Variation 14.8 % (11.5-14.5); RDW Standard Deviation 48.6 fL (36.4-46.3); Red Blood Count 3.71 M/uL (4.7-6.1); White Blood Count 12.69 K/uL (4.8-10.8)
[2019-09-15 11:58] LABS: BUN Creatinine Ratio 31.4 (10-20); Calcium 8.1 mg/dl (8.5-10.1); Creatinine Clr Calc Pharmacy 103.1 ml/min; Est GFR (African American) 104.5; Est GFR (Non-African American) 90.2; Potassium 3.3 mmol/L (3.5-5.1)
[2019-09-15 12:16] LABS: Albumin Globulin Ratio 0.6 (0.9-2); Bilirubin,Total 0.6 mg/dl (0.2-1); Globulin 3.6 gm/dl (2.5-4.0); Total Protein 5.6 gm/dl (6.4-8.2)
[2019-09-15 12:17] LABS: Partial Thromboplastin Time 84.1 Seconds (21.0-31.0)
[2019-09-15] MEDS: cefTRIAXone SODIUM 2,000 MG in DEXTROSE 5% 50 ML IV SCH (13:49)
[2019-09-15] MEDS: ACETAMINOPHEN 325 MG TAB PO PRN (13:59)
[2019-09-15] MEDS ORDERED: POTASSIUM CHLORIDE PWD 20 MEQ PACK PO STA (14:02)
[2019-09-15 19:38] LABS: Partial Thromboplastin Ratio 1.2; Partial Thromboplastin Time 32.6 Seconds (21.0-31.0)
[2019-09-15] MEDS ORDERED: HEPARIN IV BOLUS 7,000 UNITS in SYRINGE 0 ML IV ONE (20:15)
[2019-09-15] MEDS: ATORVASTATIN 40 MG TAB PO SCH (20:18)
[2019-09-15] MEDS ORDERED: VANCOMYCIN TROUGH ONE (23:30)
[2019-09-16] MEDS: VANCOMYCIN HCL 1,250 MG in SODIUM CHLORIDE 0.9% 250 ML IV SCH (00:01)
[2019-09-16] MEDS: D5W AND 1/2NSS 1,000 ML IV SCH (00:03)
[2019-09-16 03:01] LABS: Hematocrit (blood only) 30.2 % (42-52); Hemoglobin 10.2 g/dL (14.0-18.0); Mean Corpuscular Hemoglobin 30.1 pg (25-34); Mean Corpuscular Hgb Conc 33.8 g/dL (32-36); Mean Corpuscular Volume 89.1 fL (80-100); Mean Platelet Volume 10.9 fL (7.4-10.4); Platelet Count 174 K/uL (130-400); RDW Coefficient of Variation 14.5 % (11.5-14.5); RDW Standard Deviation 47.7 fL (36.4-46.3); Red Blood Count 3.39 M/uL (4.7-6.1); White Blood Count 9.33 K/uL (4.8-10.8)
[2019-09-16 03:21] LABS: Albumin Level 1.6 gm/dl (3.4-5.0); BUN Creatinine Ratio 22.5 (10-20); Calcium 7.6 mg/dl (8.5-10.1); Creatinine Clr Calc Pharmacy 107.8 ml/min; Est GFR (African American) 106.4; Est GFR (Non-African American) 91.8; Magnesium 1.8 mg/dl (1.8-2.4)
[2019-09-16 03:24] LABS: Albumin Globulin Ratio 0.4 (0.9-2); Bilirubin,Total 0.5 mg/dl (0.2-1); Globulin 3.6 gm/dl (2.5-4.0); Total Protein 5.2 gm/dl (6.4-8.2)
[2019-09-16 03:57] LABS: Partial Thromboplastin Ratio > 5.0
[2019-09-16 04:01] LABS: Partial Thromboplastin Time > 139.0 Seconds (21.0-31.0)
[2019-09-16 04:52] LABS: Partial Thromboplastin Ratio > 5.0
[2019-09-16 04:55] LABS: Partial Thromboplastin Time > 139.0 Seconds (21.0-31.0)
[2019-09-16] MEDS ORDERED: POTASSIUM CHLORIDE 20 MEQ/15 ML UDC PO ONE (05:15)
[2019-09-16] MEDS: LEVOTHYROXINE SODIUM 100 MCG TABLET PO SCH (05:20)
[2019-09-16 09:18] LABS: Partial Thromboplastin Ratio 1.1; Partial Thromboplastin Time 31.3 Seconds (21.0-31.0)
[2019-09-16] MEDS: POTASSIUM CHLORIDE PWD 20 MEQ PACK PO STA ×2 (09:40→09:44)
[2019-09-16] MEDS: PANTOprazole 40 MG TAB PO SCH (09:40)
[2019-09-16] MEDS: CLOPIDOGREL BISULFATE 75 MG TAB PO SCH (09:40)
[2019-09-16] MEDS: ASPIRIN 81 MG ECTAB PO SCH (09:40)
--- NOTE | 2019-09-16 09:45 | Hospitalist Progress Note ---
Date of Service September 16, 2019 Assessment & Plan (1) Confusion: (2) Pressure ulcer of right hip: (3) Fever: Fever, leukocytosis, altered mental status Sepsis Metabolic encephalopathy, likely from sepsis, resolved Procalcitonin of 4.9 UA does has only 1-5WBC, no leuk est or nitrite Urine culture negative so far Blood culture negative so far Lactate was 4.5. Resolved with IVF Got 30 cc/kg of IVF Continue broad-spectrum antibiotics. Possible source is skin wounds Continue wound care consult for wounds Right leg edematous. Negative dopplers Started po diet after WARP TIER evaluation IVF discontinued after resuscitation and patient tolerating po well Resume home antihypertensive that were initially held COVID test negative. Isolation discontinued Leukocytosis resolved (4) Paroxysmal atrial fibrillation: Rate controlled Resume coreg Director Online Marketing recommendations noted (5) History of CVA (cerebrovascular accident): Continue aspirin, plavix and atorvastatin (6) RHONDA (acute kidney injury): Cr was 1.55 on admission Secondary to dehydration Resolved Cr 0.64 today Avoid nephrotoxins Hypokalemia Replete and monitor (7) Rhabdomyolysis: CPK of 6875 -->4645 -->1374-->942 IV fluids discontinued now patient has good oral intake Monitor (8) Non-ST elevation [place] (NSTEMI): Troponin 50.8-->44.5-->30.3 EKG reviewed. Director Online Marketing recommendations noted Completed heparin drip this AM No signs of bleeding 2D echo report noted (9) Hypothyroidism: TSH 0.56 Continue synthroid (10) Hypertension: BP stable now Resume home antihypertensives (11) Diabetes: Diet controlled A1c 5.7 DVT ppx - hep sq Discussed concerns of poor care at home with CM. OOA will evaluate PT/OT evaluation Admission and Anticipated Discharge Date Admission Date: September 13, 2019 Subjective Patient seen and examined Patient has no new complaints. Is in excellent spirits. Still has generalized weakness No more fevers since 39.1 on 09/13/19 Denied cough, chest pain,SOB Denied abd pain, nausea, vomiting, diarrhea Denied any urinary symptoms Physical Exam Constitutional: + ill appearing (chronic); no acute distress Respiratory: normal respiratory effort, lungs clear to auscultation Cardiovascular: Rate/Rhythm: regular rate and regular rhythm Heart Sounds: normal S1 and normal S2 Extremities: + pedal edema (Right >>Left) Gastrointestinal (Abdomen): normal bowel sounds, soft, nontender, no hepatosplenomegaly Musculoskeletal: Bilateral leg edema Ecchymotic bruise with skin slough on right hip with clean dressing Wound on feet Neurologic: AOX3, chronic left facial droop Power is 4/5 in both UE, 4/5 in LLE, 3/5 in RLE Psychiatric: Orientation: alert Results & Data Results & Data ([facility]) Vital Signs (Past 12 Hours) Vital Signs Temp Pulse Resp BP BP Pulse Ox 09/16/19 08:34 36.8 C 71 18 131/69 97 09/16/19 04:35 36.7 C 64 20 137/51 L 96 09/15/19 23:52 36.7 C 58 L 20 130/69 95 Laboratory Results Laboratory Results - last 24 hr 09/15/19 09/15/19 09/15/19 11:28 11:28 11:28 WBC 12.69 H RBC 3.71 L Hgb 10.8 L Hct 33.6 L MCV 90.6 MCH 29.1 MCHC 32.1 RDW Std Deviation 48.6 H RDW Coeff of Rayna 14.8 H Plt Count 174 MPV 10.7 H APTT 84.1 H* PTT Ratio 3.0 Sodium 141 Potassium 3.3 L Chloride 109 H Carbon Dioxide 25 Anion Gap 7.0 BUN 21 H Creatinine 0.68 Est Cr Clr Drug Dosing 103.1 Est GFR ( Amer) 104.5 Est GFR (Non-Af Amer) 90.2 BUN/Creatinine Ratio 31.4 H Glucose 152 H Calcium 8.1 L Ionized Calcium Magnesium Total Bilirubin 0.6 AST 181 H ALT 98 H Alkaline Phosphatase 68 Total Creatine Kinase 1374 H Total Protein 5.6 L Albumin 2.0 L Globulin 3.6 Albumin/Globulin Ratio 0.6 L Vancomycin Trough 09/15/19 09/15/19 09/16/19 19:08 23:17 02:42 WBC RBC Hgb Hct MCV MCH MCHC RDW Std Deviation RDW Coeff of Rayna Plt Count MPV APTT 32.6 H PTT Ratio 1.2 Sodium 141 Potassium 3.0 L Chloride 111 H Carbon Dioxide 23 Anion Gap 7.0 BUN 14 Creatinine 0.64 Est Cr Clr Drug Dosing 107.8 Est GFR ( Amer) 106.4 Est GFR (Non-Af Amer) 91.8 BUN/Creatinine Ratio 22.5 H Glucose 129 H Calcium 7.6 L Ionized Calcium Magnesium 1.8 Total Bilirubin 0.5 AST 162 H ALT 120 H Alkaline Phosphatase 64 Total Creatine Kinase 942 H Total Protein 5.2 L Albumin 1.6 L Globulin 3.6 Albumin/Globulin Ratio 0.4 L Vancomycin Trough 14.5 09/16/19 09/16/19 09/16/19 02:42 02:42 04:26 WBC 9.33 RBC 3.39 L Hgb 10.2 L Hct 30.2 L MCV 89.1 MCH 30.1 MCHC 33.8 RDW Std Deviation 47.7 H RDW Coeff of Rayna 14.5 Plt Count 174 MPV 10.9 H APTT > 139.0 H* > 139.0 H* PTT Ratio > 5.0 > 5.0 Sodium Potassium Chloride Carbon Dioxide Anion Gap BUN Creatinine Est Cr Clr Drug Dosing Est GFR ( Amer) Est GFR (Non-Af Amer) BUN/Creatinine Ratio Glucose Calcium Ionized Calcium Magnesium Total Bilirubin AST ALT Alkaline Phosphatase Total Creatine Kinase Total Protein Albumin Globulin Albumin/Globulin Ratio Vancomycin Trough 09/16/19 09/16/19 08:56 09:10 WBC RBC Hgb Hct MCV MCH MCHC RDW Std Deviation RDW Coeff of Rayna Plt Count MPV APTT 31.3 H PTT Ratio 1.1 Sodium Potassium Chloride Carbon Dioxide Anion Gap BUN Creatinine Est Cr Clr Drug Dosing Est GFR ( Amer) Est GFR (Non-Af Amer) BUN/Creatinine Ratio Glucose Calcium Ionized Calcium 1.17 Magnesium Total Bilirubin AST ALT Alkaline Phosphatase Total Creatine Kinase Total Protein Albumin Globulin Albumin/Globulin Ratio Vancomycin Trough (1) Pressure ulcer of right hip Pressure injury stage: stage 3 Qualified Code(s): L89.213 - Pressure ulcer of right hip, stage 3 (2) Fever Fever type: unspecified Qualified Code(s): R50.9 - Fever, unspecified (3) Rhabdomyolysis Encounter type: initial encounter Rhabdomyolysis type: traumatic Qualified Code(s): T79.6XXA - Traumatic ischemia of muscle, initial encounter
[2019-09-16] MEDS: METOPROLOL TARTRATE 25 MG TAB PO SCH (11:58)
[2019-09-16] MEDS: carvediloL 12.5 MG TAB PO SCH ×2 (12:20→20:14)
[2019-09-16] MEDS: ACETAMINOPHEN 325 MG TAB PO PRN (12:23)
--- NOTE | 2019-09-16 12:49 | Electrocardiogram Report ---
Test Reason : Blood Pressure : / mmHG Vent. Rate : 060 BPM Atrial Rate : 060 BPM P-R Int : 176 ms QRS Dur : 098 ms QT Int : 378 ms P-R-T Axes : 021 -06 -27 degrees QTc Int : 378 ms Normal sinus rhythm Inferior infarct (cited on or before 23-APR-2017) Anterior infarct , age undetermined Nonspecific T wave abnormality Abnormal ECG When compared with ECG of 14-SEP-2019 10:01, Anterior infarct is now Present Confirmed by Reece Isidro ([id number]) on 09/16/2019 12:49:11 PM Referred By: REFERRED SELF Confirmed By:Reece Isidro
--- NOTE | 2019-09-16 13:35 | Cardiology Progress Note ---
Date of Service September 16, 2019 Assessment & Plan (1) Rhabdomyolysis: (2) Acute renal insufficiency: (3) Sepsis: (4) Dehydration: (5) Elevated troponin: (6) Pressure ulcer of right hip: Complex 78-year-old patient admitted with fall, rhabdomyolysis, sepsis, and elevated troponin. . Elevated troponin likely multifactorial related to hypotension, rhabdomyolysis, acute renal insufficiency and sepsis syndrome. Initial EKGs and presentation not suspicious for acute coronary syndrome. Echocardiogram demonstrates hypokinesis of the inferior posterior wall at the base with otherwise preserved LV function. Telemetry did demonstrate atrial and ventricular ectopy and short run of SVT Plan is already initiated resuming oral medications including beta-maco, supplement potassium Will follow with clinical course consider further ischemic work-up post recovery Subjective Patient seen and examined, chart, medications, telemetry reviewed. Patient alert and talkative without focal cardiac complaint. No chest pains or tachypalpitations. Physical Exam Constitutional: no acute distress Eyes: PERRL, conjunctivae normal, anicteric sclerae Neck: trachea midline, no thyromegaly Respiratory: Coarse airway sounds bilaterally increased with cough Cardiovascular: Rate/Rhythm: regular rate and regular rhythm Heart Sounds: + murmur (Grade 1/6 early systolic murmur) Palpation: normal PMI Vessels: no JVD and no carotid bruit Extremities: no edema Results & Data Vital Signs (Past 12 Hours) Vital Signs Temp Pulse Resp BP BP Pulse Ox 09/16/19 12:22 36.9 C 77 18 120/65 99 09/16/19 08:34 36.8 C 71 18 131/69 97 09/16/19 04:35 36.7 C 64 20 137/51 L 96 Laboratory Results Laboratory Results - last 24 hr 09/15/19 09/15/19 09/16/19 19:08 23:17 02:42 WBC RBC Hgb Hct MCV MCH MCHC RDW Std Deviation RDW Coeff of Rayna Plt Count MPV APTT 32.6 H PTT Ratio 1.2 Sodium 141 Potassium 3.0 L Chloride 111 H Carbon Dioxide 23 Anion Gap 7.0 BUN 14 Creatinine 0.64 Est Cr Clr Drug Dosing 107.8 Est GFR ( Amer) 106.4 Est GFR (Non-Af Amer) 91.8 BUN/Creatinine Ratio 22.5 H Glucose 129 H Calcium 7.6 L Ionized Calcium Magnesium 1.8 Total Bilirubin 0.5 AST 162 H ALT 120 H Alkaline Phosphatase 64 Total Creatine Kinase 942 H Total Protein 5.2 L Albumin 1.6 L Globulin 3.6 Albumin/Globulin Ratio 0.4 L Nasal Screen MRSA (PCR) Vancomycin Trough 14.5 09/16/19 09/16/19 09/16/19 02:42 02:42 04:26 WBC 9.33 RBC 3.39 L Hgb 10.2 L Hct 30.2 L MCV 89.1 MCH 30.1 MCHC 33.8 RDW Std Deviation 47.7 H RDW Coeff of Rayna 14.5 Plt Count 174 MPV 10.9 H APTT > 139.0 H* > 139.0 H* PTT Ratio > 5.0 > 5.0 Sodium Potassium Chloride Carbon Dioxide Anion Gap BUN Creatinine Est Cr Clr Drug Dosing Est GFR ( Amer) Est GFR (Non-Af Amer) BUN/Creatinine Ratio Glucose Calcium Ionized Calcium Magnesium Total Bilirubin AST ALT Alkaline Phosphatase Total Creatine Kinase Total Protein Albumin Globulin Albumin/Globulin Ratio Nasal Screen MRSA (PCR) Vancomycin Trough 09/16/19 09/16/19 09/16/19 08:56 09:10 09:50 WBC RBC Hgb Hct MCV MCH MCHC RDW Std Deviation RDW Coeff of Rayna Plt Count MPV APTT 31.3 H PTT Ratio 1.1 Sodium Potassium Chloride Carbon Dioxide Anion Gap BUN Creatinine Est Cr Clr Drug Dosing Est GFR ( Amer) Est GFR (Non-Af Amer) BUN/Creatinine Ratio Glucose Calcium Ionized Calcium 1.17 Magnesium Total Bilirubin AST ALT Alkaline Phosphatase Total Creatine Kinase Total Protein Albumin Globulin Albumin/Globulin Ratio Nasal Screen MRSA (PCR) Positive A Vancomycin Trough (1) Pressure ulcer of right hip Pressure injury stage: stage 3 Qualified Code(s): L89.213 - Pressure ulcer of right hip, stage 3 (2) Rhabdomyolysis Encounter type: initial encounter Rhabdomyolysis type: traumatic Qualified Code(s): T79.6XXA - Traumatic ischemia of muscle, initial encounter (3) Sepsis Acute renal failure type: unspecified Sepsis acute organ dysfunction status: with acute organ dysfunction Sepsis type: sepsis due to unspecified organism Severe sepsis acute organ dysfunction type: acute renal failure Severe sepsis shock status: without septic shock Qualified Code(s): A41.9 - Sepsis, unspecified organism; R65.20 - Severe sepsis without septic shock; N17.9 - Acute kidney failure, unspecified
[2019-09-16] MEDS: cefTRIAXone SODIUM 2,000 MG in DEXTROSE 5% 50 ML IV SCH (15:41)
[2019-09-16] MEDS: ATORVASTATIN 40 MG TAB PO SCH (20:14)
[2019-09-16] MEDS: HEPARIN SOD 5,000 UNIT/0.5 ML VIAL SQ SCH (20:14)
[2019-09-17] MEDS: LEVOTHYROXINE SODIUM 100 MCG TABLET PO SCH (05:23)
[2019-09-17] MEDS: HEPARIN SOD 5,000 UNIT/0.5 ML VIAL SQ SCH ×2 (10:16→20:40)
[2019-09-17] MEDS: carvediloL 12.5 MG TAB PO SCH ×2 (10:16→20:38)
[2019-09-17] MEDS: ASPIRIN 81 MG ECTAB PO SCH (10:17)
[2019-09-17] MEDS: PANTOprazole 40 MG TAB PO SCH (10:17)
[2019-09-17] MEDS: CLOPIDOGREL BISULFATE 75 MG TAB PO SCH (10:17)
--- NOTE | 2019-09-17 10:45 | Hospitalist Progress Note ---
Date of Service September 17, 2019 Assessment & Plan (1) Confusion: (2) Pressure ulcer of right hip: (3) Fever: Fever, leukocytosis, altered mental status Sepsis Metabolic encephalopathy, likely from sepsis, resolved Procalcitonin of 4.9 UA does has only 1-5WBC, no leuk est or nitrite Urine culture negative so far Blood culture negative so far Lactate was 4.5. Resolved with IVF Got 30 cc/kg of IVF Continue ceftriaxone to complete 5 day therapy Possible source is skin wounds Continue wound care consult for wounds Right leg edematous. Negative dopplers COVID test negative. Isolation discontinued Leukocytosis resolved (4) Paroxysmal atrial fibrillation: Rate controlled Continue home coreg Nursing Home Manager recommendations noted (5) History of CVA (cerebrovascular accident): Continue aspirin, plavix and atorvastatin (6) RHONDA (acute kidney injury): Cr was 1.55 on admission Secondary to dehydration Resolved Avoid nephrotoxins Hypokalemia Repleted yesterday Awaiting lab this AM Hypophosphatemia today. Replete (7) Rhabdomyolysis: CPK of 6875 -->4645 -->1374-->942 Managed with IVF Monitor (8) Non-ST elevation IA (NSTEMI): Troponin 50.8-->44.5-->30.3 EKG reviewed. Nursing Home Manager recommendations noted Completed heparin drip yesterday No signs of bleeding 2D echo report noted (9) Hypothyroidism: TSH 0.56 Continue synthroid (10) Hypertension: BP stable now Continue home antihypertensives (11) Diabetes: Diet controlled A1c 5.7 DVT ppx - hep sq Discussed concerns of poor care at home with CM. OOA notified PT/OT evaluation recommend SNF Patient agreeable to [facility]. to initiate placement process Admission and Anticipated Discharge Date Admission Date: September 13, 2019 Subjective Patient seen and examined Reports feeling much better Sitting out in the chair Denied any new complaints Physical Exam Constitutional: + ill appearing (chronic); no acute distress Respiratory: normal respiratory effort, lungs clear to auscultation Cardiovascular: Rate/Rhythm: regular rate and regular rhythm Heart Sounds: normal S1 and normal S2 Extremities: + pedal edema (Right >>Left) Gastrointestinal (Abdomen): normal bowel sounds, soft, nontender, no hepatosplenomegaly Musculoskeletal: Bilateral leg edema (R>L) Ecchymotic bruise with skin slough on right hip with clean dressing Right great toe abrasion, clean Neurologic: AOx3, chronic left facial droop, Power is 4/5 in both UE, 4/5 in LLE, 3/5 in RLE Psychiatric: A+Ox3, euthymic affect Results & Data Results & Data ([facility]) Vital Signs (Past 12 Hours) Vital Signs Temp Pulse Resp BP Pulse Ox 09/17/19 07:56 36.8 C 60 18 131/59 L 96 09/17/19 04:32 36.9 C 57 L 16 122/76 96 09/16/19 23:08 36.7 C 64 16 122/73 96 Laboratory Results Laboratory Results - last 24 hr 09/16/19 09/17/19 09/17/19 09:50 09:48 09:48 WBC Pending RBC Pending Hgb Pending Hct Pending MCV Pending MCH Pending MCHC Pending Plt Count Pending Sodium Pending Potassium Pending Chloride Pending Carbon Dioxide Pending Anion Gap Pending BUN Pending Creatinine Pending Est Cr Clr Drug Dosing Pending Est GFR ( Amer) Pending Est GFR (Non-Af Amer) Pending BUN/Creatinine Ratio Pending Glucose Pending Calcium Pending Phosphorus Pending Magnesium Pending Nasal Screen MRSA (PCR) Positive A (1) Pressure ulcer of right hip Pressure injury stage: stage 3 Qualified Code(s): L89.213 - Pressure ulcer of right hip, stage 3 (2) Fever Fever type: unspecified Qualified Code(s): R50.9 - Fever, unspecified (3) Rhabdomyolysis Encounter type: initial encounter Rhabdomyolysis type: traumatic Qualified Code(s): T79.6XXA - Traumatic ischemia of muscle, initial encounter
[2019-09-17 10:50] LABS: BUN Creatinine Ratio 14.1 (10-20); Calcium 8.5 mg/dl (8.5-10.1); Creatinine Clr Calc Pharmacy 97.6 ml/min; Est GFR (African American) 100.8; Phosphorus 1.8 mg/dl (2.5-4.9)
[2019-09-17 11:25] LABS: Hematocrit (blood only) 35.3 % (42-52); Mean Corpuscular Hemoglobin 29.9 pg (25-34); Mean Platelet Volume 10.5 fL (7.4-10.4); Platelet Count 210 K/uL (130-400); RDW Coefficient of Variation 14.5 % (11.5-14.5); RDW Standard Deviation 46.8 fL (36.4-46.3); Red Blood Count 4.01 M/uL (4.7-6.1); White Blood Count 7.75 K/uL (4.8-10.8)
[2019-09-17 12:13] LABS: Potassium 3.7 mmol/L (3.5-5.1)
[2019-09-17] MEDS ORDERED: POT PHOSPHATE MONOBASIC W/ SOD TAB PO STA (14:07)
[2019-09-17] MEDS: cefTRIAXone SODIUM 2,000 MG in DEXTROSE 5% 50 ML IV SCH (14:28)
--- NOTE | 2019-09-17 16:59 | Cardiology Progress Note ---
Date of Service September 17, 2019 Assessment & Plan (1) Rhabdomyolysis: (2) Acute renal insufficiency: (3) Sepsis: (4) Dehydration: (5) Elevated troponin: (6) Pressure ulcer of right hip: Complex 78-year-old patient admitted with fall, rhabdomyolysis, sepsis, and elevated troponin. . Elevated troponin likely multifactorial related to hypotension, rhabdomyolysis, acute renal insufficiency and sepsis syndrome. Initial EKGs and presentation not suspicious for acute coronary syndrome. Echocardiogram demonstrates hypokinesis of the inferior posterior wall at the base with otherwise preserved LV function. Plan is already initiated resuming oral medications including beta-maco, kinsey pplement potassium Cardiac status stable good heart rate and blood pressure no significant tachycardia or bradycardia Subjective Patient seen and examined, chart, medications, telemetry reviewed. Patient alert and talkative without focal cardiac complaint. No dizziness lightheadedness or worsening shortness of breath Physical Exam Constitutional: no acute distress Eyes: PERRL, conjunctivae normal, anicteric sclerae Neck: trachea midline, no thyromegaly Cardiovascular: Rate/Rhythm: regular rate and regular rhythm Heart Sounds: + murmur (Grade 1/6 early systolic murmur) Palpation: normal PMI Vessels: no JVD and no carotid bruit Extremities: no edema Results & Data Vital Signs (Past 12 Hours) Vital Signs Temp Pulse Pulse Resp BP Pulse Ox 09/17/19 12:05 36.8 C 58 L 18 129/61 96 09/17/19 08:00 56 L 09/17/19 07:56 36.8 C 60 18 131/59 L 96 Laboratory Results Laboratory Results - last 24 hr 09/17/19 09/17/19 09/17/19 09:48 09:48 11:11 WBC Cancelled 7.75 RBC Cancelled 4.01 L Hgb Cancelled 12.0 L Hct Cancelled 35.3 L MCV Cancelled 88.0 MCH Cancelled 29.9 MCHC Cancelled 34.0 RDW Std Deviation Cancelled 46.8 H RDW Coeff of Rayna Cancelled 14.5 Plt Count Cancelled 210 MPV Cancelled 10.5 H Absolute Nucleated RBC Cancelled Nucleated RBC % (auto) Cancelled Platelet Estimate Cancelled Sodium 140 Potassium 3.7 D Chloride 108 H Carbon Dioxide 26 Anion Gap 6.0 BUN 10 Creatinine 0.73 Est Cr Clr Drug Dosing 97.6 Est GFR ( Amer) 100.8 Est GFR (Non-Af Amer) 87.0 BUN/Creatinine Ratio 14.1 Glucose 100 H Calcium 8.5 Phosphorus 1.8 L Magnesium 2.0 (1) Rhabdomyolysis Encounter type: initial encounter Rhabdomyolysis type: traumatic Qualified Code(s): T79.6XXA - Traumatic ischemia of muscle, initial encounter (2) Sepsis Sepsis type: sepsis due to unspecified organism Sepsis acute organ dysfunction status: with acute organ dysfunction Severe sepsis acute organ dysfunction type: acute renal failure Acute renal failure type: unspecified Severe sepsis shock status: without septic shock Qualified Code(s): A41.9 - Sepsis, unspecified organism; R65.20 - Severe sepsis without septic shock; N17.9 - Acute kidney failure, unspecified (3) Pressure ulcer of right hip Pressure injury stage: stage 3 Qualified Code(s): L89.213 - Pressure ulcer of right hip, stage 3
[2019-09-17] MEDS: ATORVASTATIN 40 MG TAB PO SCH (20:40)
[2019-09-18] MEDS: LEVOTHYROXINE SODIUM 100 MCG TABLET PO SCH (06:03)
[2019-09-18 08:24] LABS: Hematocrit (blood only) 31.5 % (42-52); Hemoglobin 10.9 g/dL (14.0-18.0); Mean Corpuscular Hemoglobin 30.5 pg (25-34); Mean Corpuscular Hgb Conc 34.6 g/dL (32-36); Mean Corpuscular Volume 88.2 fL (80-100); Mean Platelet Volume 10.5 fL (7.4-10.4); Platelet Count 191 K/uL (130-400); RDW Coefficient of Variation 14.6 % (11.5-14.5); RDW Standard Deviation 47.1 fL (36.4-46.3); Red Blood Count 3.57 M/uL (4.7-6.1); White Blood Count 8.62 K/uL (4.8-10.8)
--- NOTE | 2019-09-18 08:42 | Wound Consultation ---
Date of Consultation September 17, 2019 History of Present Illness Attending Physician: Jaleesa Payan MD Allergies Allergy/AdvReac Type Severity Reaction Status Date / Time Benzodiazepines Allergy Unknown UNNKNOWN Verified 04/23/17 17:04 Penicillins Allergy Unknown RASH Verified 04/23/17 17:05 Home Medications Home Medications Medication Instructions Recorded Confirmed Type amlodipine 2.5 mg PO DAILY 09/13/19 09/13/19 History aspirin 81 mg PO DAILY 09/13/19 09/13/19 History atorvastatin 40 mg PO HS 09/13/19 09/13/19 History carvedilol 12.5 mg PO BID 09/13/19 09/13/19 History clopidogrel 75 mg PO DAILY 09/13/19 09/13/19 History furosemide 20 mg PO DAILY 09/13/19 09/13/19 History levothyroxine 100 mcg PO DAILY 09/13/19 09/13/19 History lisinopril 10 mg PO DAILY 09/13/19 09/13/19 History omeprazole 20 mg PO DAILY 09/13/19 09/13/19 History sennosides-docusate sodium 2 tab PO BID PRN 09/13/19 09/13/19 History [Senna-S] Patient History Medical History Contraindication to anticoagulation therapy 2/2 frequent falls, non-compliance 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 History of CVA (cerebrovascular accident) 2011 septal lobe CVA, 2018 L frontal lobe Hypertension (Chronic) Hypothyroidism (Chronic) Paroxysmal atrial fibrillation Surgical History Cataract H/O mastoidectomy Family History Other Heart disease Social History Preferred Language: Japanese Communication Ability: Impaired Materials Specialist Required: No Current Living Situation: Alone Feels Safe at Home: Yes Smoking Status: Unknown if ever smoked Hx Alcohol Use: No Hx Substance Use: No Results & Data Vital Signs (Past 12 Hours) Vital Signs Temp Pulse Pulse Resp BP Pulse Ox 09/18/19 07:47 37.0 C 62 18 132/69 96 09/18/19 04:43 36.8 C 58 L 18 122/64 96 09/17/19 23:43 36.8 C 60 20 124/63 97 09/17/19 23:28 66 PG Care Time/CCT Total # of Minutes Spent Total Time Spent with Patient: Total time spent is greater than 50% in coordination of care (as documented) at patient's floor/unit and/or counseling patient: Coding
[2019-09-18 09:01] LABS: BUN Creatinine Ratio 14.8 (10-20); Calcium 8.3 mg/dl (8.5-10.1); Creatinine Clr Calc Pharmacy 104.9 ml/min; Est GFR (African American) 103.8; Est GFR (Non-African American) 89.6; Magnesium 1.9 mg/dl (1.8-2.4); Potassium 3.7 mmol/L (3.5-5.1)
[2019-09-18 09:05] LABS: Phosphorus 2.6 mg/dl (2.5-4.9)
[2019-09-18] MEDS: PANTOprazole 40 MG TAB PO SCH (09:24)
[2019-09-18] MEDS: carvediloL 12.5 MG TAB PO SCH ×2 (09:24→20:48)
[2019-09-18] MEDS: ASPIRIN 81 MG ECTAB PO SCH (09:25)
[2019-09-18] MEDS: CLOPIDOGREL BISULFATE 75 MG TAB PO SCH (09:25)
[2019-09-18] MEDS: HEPARIN SOD 5,000 UNIT/0.5 ML VIAL SQ SCH ×2 (09:26→20:53)
--- NOTE | 2019-09-18 09:58 | Hospitalist Progress Note ---
Date of Service September 18, 2019 Assessment & Plan (1) Confusion: (2) Pressure ulcer of right hip: (3) Fever: Fever, leukocytosis, altered mental status Sepsis Metabolic encephalopathy, likely from sepsis, resolved Procalcitonin of 4.9 UA does has only 1-5WBC, no leuk est or nitrite Urine culture negative so far Blood culture negative so far Lactate was 4.5. Resolved with IVF Got 30 cc/kg of IVF Complete ceftriaxone today Possible source is skin wounds Continue wound care for wounds Will follow up wound care dr recommendations for chronic scalp wound Right leg edematous. Negative dopplers COVID test negative. Leukocytosis resolved (4) Paroxysmal atrial fibrillation: Currently sinus Continue home coreg Gas Treater recommendations noted (5) History of CVA (cerebrovascular accident): Continue aspirin, plavix and atorvastatin (6) RHONDA (acute kidney injury): Cr was 1.55 on admission Secondary to dehydration Resolved cr now 0.68 Avoid nephrotoxins Hypokalemia Repleted Hypophosphatemia. Repleted (7) Rhabdomyolysis: CPK of 6875 -->4645 -->1374-->942 Managed with IVF Monitor (8) Non-ST elevation NV (NSTEMI): Troponin 50.8-->44.5-->30.3 EKG reviewed. Completed heparin drip 48h heparin drip No signs of bleeding 2D echo report noted. Cardiac status stable good heart rate and blood pressure no significant tachycardia or bradycardia Discussed with Gas Treater Dr Mccarthy. Recommend further cardiac workup outpatient. Follow up cards outpatient (9) Hypothyroidism: TSH 0.56 Continue synthroid (10) Hypertension: BP stable now Continue home antihypertensives (11) Diabetes: Diet controlled A1c 5.7 DVT ppx - hep sq Discussed concerns of poor care at home with CM. NOAH notified PT/OT evaluation recommend SNF SNF placement in process Admission and Anticipated Discharge Date Admission Date: September 13, 2019 Subjective Patient seen and examined Reports no complaints today Physical Exam Constitutional: + ill appearing (chronic); no acute distress Respiratory: normal respiratory effort, lungs clear to auscultation Cardiovascular: Rate/Rhythm: regular rate and regular rhythm Heart Sounds: normal S1 and normal S2 Extremities: + pedal edema (Right >>Left) Gastrointestinal (Abdomen): normal bowel sounds, soft, nontender, no hepatosplenomegaly Musculoskeletal: Bilateral leg edema (R>L) Clean dressing over right hip wound Right great toe abrasion, clean Neurologic: AOx3, chronic left facial droop, Power is 4/5 in both UE, 4/5 in LLE, 3/5 in RLE Psychiatric: A+Ox3, euthymic affect Orientation: alert Results & Data Results & Data ([facility]) Vital Signs (Past 12 Hours) Vital Signs Temp Pulse Pulse Resp BP Pulse Ox 09/18/19 07:47 37.0 C 62 18 132/69 96 09/18/19 04:43 36.8 C 58 L 18 122/64 96 09/17/19 23:43 36.8 C 60 20 124/63 97 09/17/19 23:28 66 Laboratory Results Laboratory Results - last 24 hr 09/18/19 09/18/19 07:46 07:46 WBC 8.62 RBC 3.57 L Hgb 10.9 L Hct 31.5 L MCV 88.2 MCH 30.5 MCHC 34.6 RDW Std Deviation 47.1 H RDW Coeff of Rayna 14.6 H Plt Count 191 MPV 10.5 H Sodium 140 Potassium 3.7 Chloride 108 H Carbon Dioxide 25 Anion Gap 6.0 BUN 10 Creatinine 0.68 Est Cr Clr Drug Dosing 104.9 Est GFR ( Amer) 103.8 Est GFR (Non-Af Amer) 89.6 BUN/Creatinine Ratio 14.8 Glucose 89 Calcium 8.3 L Phosphorus 2.6 Magnesium 1.9 (1) Pressure ulcer of right hip Pressure injury stage: stage 3 Qualified Code(s): L89.213 - Pressure ulcer of right hip, stage 3 (2) Fever Fever type: unspecified Qualified Code(s): R50.9 - Fever, unspecified (3) Rhabdomyolysis Encounter type: initial encounter Rhabdomyolysis type: traumatic Qualified Code(s): T79.6XXA - Traumatic ischemia of muscle, initial encounter
[2019-09-18] MEDS: cefTRIAXone SODIUM 2,000 MG in DEXTROSE 5% 50 ML IV SCH (14:40)
[2019-09-18] MEDS: ATORVASTATIN 40 MG TAB PO SCH (20:53)
[2019-09-19] MEDS: ACETAMINOPHEN 325 MG TAB PO PRN (01:57)
[2019-09-19] MEDS: LEVOTHYROXINE SODIUM 100 MCG TABLET PO SCH (06:07)
[2019-09-19] MEDS: CLOPIDOGREL BISULFATE 75 MG TAB PO SCH (07:46)
[2019-09-19] MEDS: carvediloL 12.5 MG TAB PO SCH ×2 (07:47→20:52)
[2019-09-19] MEDS: PANTOprazole 40 MG TAB PO SCH (07:48)
[2019-09-19] MEDS: ASPIRIN 81 MG ECTAB PO SCH (07:48)
[2019-09-19] MEDS: HEPARIN SOD 5,000 UNIT/0.5 ML VIAL SQ SCH ×2 (07:50→20:51)
[2019-09-19 09:52] LABS: Mean Corpuscular Hemoglobin 29.6 pg (25-34); Mean Corpuscular Hgb Conc 33.3 g/dL (32-36); Mean Corpuscular Volume 88.7 fL (80-100); Mean Platelet Volume 9.9 fL (7.4-10.4); Platelet Count 218 K/uL (130-400); RDW Coefficient of Variation 15.2 % (11.5-14.5); RDW Standard Deviation 48.5 fL (36.4-46.3); Red Blood Count 3.72 M/uL (4.7-6.1); White Blood Count 8.55 K/uL (4.8-10.8)
[2019-09-19] MEDS: cefTRIAXone SODIUM 2,000 MG in DEXTROSE 5% 50 ML IV SCH (13:43)
--- NOTE | 2019-09-19 14:57 | Hospitalist Progress Note ---
Date of Service September 19, 2019 Assessment & Plan (1) Rhabdomyolysis: Nontrumatic rhabdomyolysis present after being found down at home covered in feces. CPK improved with IVF resuscitation. Resolved. (2) Non-ST elevation AR (NSTEMI): Elevated troponin felt to be multifactorial related to hypotension, rhabdomyolysis, acute renal insufficiency and sepsis syndrome. Initial EKGs and presentation was not suspicious for acute coronary syndrome. Echocardiogram demonstrated hypokinesis of the inferior posterior wall at the base with otherwise preserved LV function. cont medical management with beta maco, statin, ASA, Plavix. (3) Pressure ulcer of right hip: It isn't clear if this was overtly infected on admission. However, he clearly improved with a course of antibiotics so will finish this now. Wound care following. Stay off this area. (4) Metabolic encephalopathy: Present initially but now resolved. Pt doesn't remember inciting events leading to hospitalization. (5) Sepsis: 2/2 possible sepsis vs non traumatic rhabdo vs other as patient found down and has no recollection of events. Resolved with resuscitation and antibiotic therapy. Possibly had infected skin wound on toe which has been evaluated by wound care. He completed a course of ceftriaxone and is improved. (6) RHONDA (acute kidney injury): resolved (7) Paroxysmal atrial fibrillation: Sinus sinus rhythm on telemetry, cont coreg. Not on anticoagulation at the moment. 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 CHADS VASC is 5 for age, h/o stroke and HTN. Will need to review outpatient record further for details on trials of anticoauglation in the past. (8) History of CVA (cerebrovascular accident): Continue aspirin, plavix and atorvastatin per home regimen (9) Hypothyroidism: TSH 0.56 Continue synthroid (10) Hypertension: Home amlodipine was held in setting of hypotension, lisinopril and daily lasix were also held on admission 2/2 acute kidney injury which is now resolved. Will restart lisinopril at this time. If BP maintains within goal, would add back other two agents. (11) DVT prophylaxis: DNR Heparin SQ Dispo-uncertain at this time. He is improved from a medical standpoint, however, he lives alone with a very nonsupportive family scene including a niece that was helping him until a couple of weeks ago, possibly related to his decline. He is adamant about returning home with "someone to be there with me all the time." He is very unrealistic and continues to refer to healthcare workers in the sense of how they would "take care of me like my did." He has mom's meals delivered and complains of having too much maple syrup left over. It is very unlikely that he can cook for himself, as well cannot perform ADLs as he cannot sit up in be on his own volition today. He is unlikely to be able to get out of the house if there if a fire. Will strongly continue to recommend SNF/rehab as a transition to home. OOA involved; will discuss with case management., Delmis Palomares DO [facility] Hospitalist Admission and Anticipated Discharge Date Admission Date: September 13, 2019 Subjective denies pain or SOB wants to go home long winding discussion leading to the fact that he has no family he trusts and he doesn't want anyone speaking to family members. 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 He doesn't have any recollection as to why he was admitted or what happened when he was found down. He reports his niece was taking care of him, but she is now taking care of her grandkids who are young, and she can no longer help him as of a couple of weeks ago. He reports getting Mom's meals, and ambulating with a walker. Review of Systems Review of Systems: All systems reviewed & are unremarkable except as noted in Subjective Physical Exam Physical Exam: CONSTITUTIONAL: WNWD, vitals as above, generally well-appear ing EYES: pupils are equal and round bilaterally, normal conjunctivae, no scleral icterus, clear left sided facial droop ENT: external ear and nose normal, oropharynx clear, MMM RESPIRATORY: clear to auscultation bilaterally, no crackles, rales or wheezes, normal respiratory effort CARDIOVASCULAR: regular rate and rhythm, 3/6 ZHANE heard throughout the precordium, no gallops or rubs, no JVD, no peripheral edema GASTROINTESTINAL: soft, nontender, nondistended MUSCULOSKELETAL: strength 5/5 throughout, head is normocephalic and atraumatic SKIN: warm and dry NEUROLOGIC: Normal cognition, normal speech, no tremor, clear facial droop present. PSYCHIATRIC: alert cooperative and oriented to person, place and time. Results & Data Results & Data ([facility]) Vital Signs (Past 12 Hours) Vital Signs Temp Pulse Pulse Resp BP Pulse Ox 09/19/19 11:50 37.0 C 74 18 132/69 99 09/19/19 08:00 54 L 09/19/19 07:57 36.8 C 68 16 142/66 H 98 09/19/19 03:20 37.1 C 69 18 152/71 H 96 Laboratory Results Short CBC 09/19/19 Range/Units 09:43 WBC 8.55 (4.8-10.8) K/uL Hgb 11.0 L (14.0-18.0) g/dL Hct 33.0 L (42-52) % Plt Count 218 (130-400) K/uL Medications Administered Current Inpatient Medications Acetaminophen (Tylenol) 650 mg PO Q4H PRN PRN Reason: Pain or Fever Stop: 10/13/19 19:52 Last Admin: 09/19/19 01:57 Dose: 650 mg Documented by: Aspirin (Ecotrin Ectab) 81 mg PO DAILY [facility] Stop: 10/14/19 08:59 Last Admin: 09/19/19 07:48 Dose: 81 mg Documented by: Atorvastatin Calcium (Lipitor) 40 mg PO HS [facility] Stop: 10/13/19 20:59 Last Admin: 09/18/19 20:53 Dose: 40 mg Documented by: Carvedilol (Coreg) 12.5 mg PO BID [facility] Stop: 10/16/19 09:14 Last Admin: 09/19/19 07:47 Dose: 12.5 mg Documented by: Clopidogrel Bisulfate (Plavix) 75 mg PO DAILY [facility] Stop: 10/14/19 08:59 Last Admin: 09/19/19 07:46 Dose: 75 mg Documented by: Heparin Sodium (Porcine) (Heparin Sodium (Porcine)) 5,000 units SQ Q12 [facility] Stop: 10/16/19 20:59 Last Admin: 09/19/19 07:50 Dose: 5,000 units Documented by: Ceftriaxone Sodium 2,000 mg/ (Dextrose) 70 mls @ 140 mls/hr IV Q24H [facility] Stop: 09/21/19 13:59 Last Admin: 09/19/19 13:43 Dose: 140 mls/hr Documented by: Levothyroxine Sodium (Synthroid) 100 mcg PO DAILYBB [facility] Stop: 10/14/19 06:29 Last Admin: 09/19/19 06:07 Dose: 100 mcg Documented by: Menthol (Nice) 1 tiffanie BUCCAL UD PRN PRN Reason: Cough/ SORE THROAT Stop: 10/15/19 08:32 Metoprolol Tartrate (Lopressor) 12.5 mg PO BID [facility] Stop: 10/14/19 10:59 Last Admin: 09/16/19 11:58 Dose: Not Given Documented by: Pantoprazole Sodium (Protonix) 40 mg PO DAILY [facility]; Protocol Stop: 10/14/19 08:59 Last Admin: 09/19/19 07:48 Dose: 40 mg Documented by: Polyethylene Glycol (Miralax Powder Packet) 17 gm PO DAILY PRN PRN Reason: Constipation Stop: 10/13/19 19:52 Senna/Docusate Sodium (Senokot S) 2 tab PO BID PRN PRN Reason: Constipation Stop: 10/13/19 17:46 Last Admin: 09/16/19 12:24 Dose: 2 tab Documented by: (1) Pressure ulcer of right hip Pressure injury stage: stage 3 Qualified Code(s): L89.213 - Pressure ulcer of right hip, stage 3 (2) Rhabdomyolysis Encounter type: initial encounter Rhabdomyolysis type: traumatic Qualified Code(s): T79.6XXA - Traumatic ischemia of muscle, initial encounter
[2019-09-19] MEDS: ATORVASTATIN 40 MG TAB PO SCH (20:51)
[2019-09-20] MEDS: LEVOTHYROXINE SODIUM 100 MCG TABLET PO SCH (06:08)
[2019-09-20] MEDS: PANTOprazole 40 MG TAB PO SCH (08:45)
[2019-09-20] MEDS: CLOPIDOGREL BISULFATE 75 MG TAB PO SCH (08:46)
[2019-09-20] MEDS: carvediloL 12.5 MG TAB PO SCH ×2 (08:46→20:16)
[2019-09-20] MEDS: HEPARIN SOD 5,000 UNIT/0.5 ML VIAL SQ SCH ×2 (08:47→20:16)
[2019-09-20] MEDS: ASPIRIN 81 MG ECTAB PO SCH (08:47)
[2019-09-20] MEDS: lisinopriL 10 MG TAB PO SCH (08:49)
[2019-09-20] MEDS: cefTRIAXone SODIUM 2,000 MG in DEXTROSE 5% 50 ML IV SCH (13:14)
--- NOTE | 2019-09-20 15:18 | Wound Progress Note ---
Date of Service September 20, 2019 Assessment & Plan (1) Pressure ulcer of right hip: 79-year-old male with traumatic/pressure injury of the right hip. Wound appears to be pending. No debridement was required. Continue Rocephin pending sensitivities. Wound to be dressed with Aquacel Ag and an OPTi foam. Wound appears to be appearing as well. There is increased drainage and slough. No debridement was required. Wound dressed with Aquacel Ag and an OPTi foam. We will continue to follow. Subjective Patient seen sitting at bedside. Help patient back in the bed. Wound culture reviewed and was positive for Staphylococcus species and sensitivities are still pending. Patient is without new complaint. Review of Systems Review of Systems: All systems reviewed & are unremarkable except as noted in HPI & below Physical Exam Skin: Right hip wound measuring as recorded in nursing documentation. Induration is improving. Wound size is relatively stable. There is some sloughing skin. Moderate drainage and no foul odors. Right elbow wound is measuring as recorded in nursing documentation. Wound is improving. Sloughing is coming off on drainage. There is moderate drainage and no foul odors. Results & Data Vital Signs (Past 12 Hours) Vital Signs Temp Pulse Pulse Resp BP Pulse Ox 09/20/19 11:48 36.9 C 68 18 108/60 95 09/20/19 08:00 60 09/20/19 03:30 37.1 C 70 19 119/65 93 PG Care Time/CCT Total # of Minutes Spent Total Time Spent with Patient: Total time spent is greater than 50% in coordination of care (as documented) at patient's floor/unit and/or counseling patient: Coding Level of Care Code 70693 Subseq Hosp Care Lvl 2 Diagnoses Pressure ulcer of right hip L89.213 Pressure injury stage: stage 3 (1) Pressure ulcer of right hip Pressure injury stage: stage 3 Qualified Code(s): L89.213 - Pressure ulcer of right hip, stage 3
[2019-09-20] MEDS: ACETAMINOPHEN 325 MG TAB PO PRN (20:15)
[2019-09-20] MEDS: ATORVASTATIN 40 MG TAB PO SCH (20:16)
--- NOTE | 2019-09-20 20:43 | Hospitalist Progress Note ---
Date of Service September 20, 2019 Assessment & Plan (1) Rhabdomyolysis: Nontrumatic rhabdomyolysis present after being found down at home covered in feces. CPK improved with IVF resuscitation. Resolved. (2) Non-ST elevation NC (NSTEMI): Elevated troponin felt to be multifactorial related to hypotension, rhabdomyolysis, acute renal insufficiency and sepsis syndrome. Initial EKGs and presentation was not suspicious for acute coronary syndrome. Echocardiogram demonstrated hypokinesis of the inferior posterior wall at the base with otherwise preserved LV function. cont medical management with beta maco, statin, ASA, Plavix. (3) Pressure ulcer of right hip: Wound growing staph with sensitivities pending. Cont ceftriaxone at this time. Wound care physician following. No debridement of this area needed. Stay off this area. (4) Metabolic encephalopathy: Present initially but now resolved. Pt doesn't remember inciting events leading to hospitalization. (5) Sepsis: 2/2 possible sepsis vs non traumatic rhabdo vs other as patient found down and has no recollection of events. Resolved with resuscitation and antibiotic therapy. Possibly had infected skin wound on toe which has been evaluated by wound care. He completed a course of ceftriaxone and is improved. (6) RHONDA (acute kidney injury): resolved (7) Paroxysmal atrial fibrillation: Coreg, Not on anticoagulation at the moment. 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 CHADS VASC is 5 for age, h/o stroke and HTN. Per inpatient cardiology evaluation in 2018, anticoagulation is contraindicated in the setting of multiple falls and a h/o intracranial bleeding. Continue to reassess as outpatient. (8) History of CVA (cerebrovascular accident): Continue aspirin, plavix and atorvastatin per home regimen (9) Hypothyroidism: TSH 0.56 Continue synthroid per home regimen (10) Hypertension: Home amlodipine was held in setting of hypotension, lisinopril and daily lasix were also held on admission 2/2 acute kidney injury which is now resolved. Cont lisinopril for now. BP at goal. (11) DVT prophylaxis: DNR Heparin SQ Dispo-to SNF when agreeable and bed opens up. OOA involved per CM. Delmis Palomares DO [facility] Hospitalist Admission and Anticipated Discharge Date Admission Date: September 13, 2019 Subjective PT upset tonight Continues to say he wants to go home and give justifications why this would be good, for example, because he has a therapist who can work with him two days a week I told him he can go home if he can get out of bed and walk, and he states he cannot do that right now because the tile floor is too hard. Tolerating PO Review of Systems Review of Systems: All systems reviewed & are unremarkable except as noted in Subjective Physical Exam Physical Exam: CONSTITUTIONAL: WNWD, vitals as above, generally well- appearing EYES: pupils are equal and round bilaterally, normal conjunctivae, no scleral icterus, clear left sided facial droop ENT: external ear and nose normal, oropharynx clear, MMM RESPIRATORY: clear to auscultation bilaterally, no crackles, rales or wheezes, normal respiratory effort CARDIOVASCULAR: regular rate and rhythm, 3/6 ZHANE heard throughout the precordium, no gallops or rubs, no JVD, no peripheral edema GASTROINTESTINAL: soft, nontender, nondistended MUSCULOSKELETAL: strength 5/5 throughout, head is normocephalic and atraumatic SKIN: warm and dry, right hip wound covered with Optifoam which was not removed. Scalp wound is closed and well-healing. NEUROLOGIC: Normal cognition, normal speech, no tremor, clear facial droop present. PSYCHIATRIC: alert and oriented, but very angry disposition. Easily agitated. Results & Data Results & Data ([facility]) Vital Signs (Past 12 Hours) Vital Signs Temp Pulse Pulse Resp BP Pulse Ox 09/20/19 19:16 36.5 C 88 18 128/68 95 09/20/19 16:04 58 L 09/20/19 15:45 36.6 C 62 18 135/55 L 99 09/20/19 11:48 36.9 C 68 18 108/60 95 Medications Administered Current Inpatient Medications Acetaminophen (Tylenol) 650 mg PO Q4H PRN PRN Reason: Pain or Fever Stop: 10/13/19 19:52 Last Admin: 09/20/19 20:15 Dose: 650 mg Documented by: Aspirin (Ecotrin Ectab) 81 mg PO DAILY [facility] Stop: 10/14/19 08:59 Last Admin: 09/20/19 08:47 Dose: 81 mg Documented by: Atorvastatin Calcium (Lipitor) 40 mg PO HS [facility] Stop: 10/13/19 20:59 Last Admin: 09/20/19 20:16 Dose: 40 mg Documented by: Carvedilol (Coreg) 12.5 mg PO BID [facility] Stop: 10/16/19 09:14 Last Admin: 09/20/19 20:16 Dose: 12.5 mg Documented by: Clopidogrel Bisulfate (Plavix) 75 mg PO DAILY [facility] Stop: 10/14/19 08:59 Last Admin: 09/20/19 08:46 Dose: 75 mg Documented by: Heparin Sodium (Porcine) (Heparin Sodium (Porcine)) 5,000 units SQ Q12 [facility] Stop: 10/16/19 20:59 Last Admin: 09/20/19 20:16 Dose: 5,000 units Documented by: Ceftriaxone Sodium 2,000 mg/ (Dextrose) 70 mls @ 140 mls/hr IV Q24H [facility] Stop: 09/21/19 13:59 Last Infusion: 09/20/19 13:43 Dose: Infused Documented by: Levothyroxine Sodium (Synthroid) 100 mcg PO DAILYBB [facility] Stop: 10/14/19 06:29 Last Admin: 09/20/19 06:08 Dose: 100 mcg Documented by: Lisinopril (Zestril) 10 mg PO DAILY [facility] Stop: 10/20/19 08:59 Last Admin: 09/20/19 08:49 Dose: 10 mg Documented by: Menthol (Nice) 1 tiffanie BUCCAL UD PRN PRN Reason: Cough/ SORE THROAT Stop: 10/15/19 08:32 Pantoprazole Sodium (Protonix) 40 mg PO DAILY [facility]; Protocol Stop: 10/14/19 08:59 Last Admin: 09/20/19 08:45 Dose: 40 mg Documented by: Polyethylene Glycol (Miralax Powder Packet) 17 gm PO DAILY PRN PRN Reason: Constipation Stop: 10/13/19 19:52 Senna/Docusate Sodium (Senokot S) 2 tab PO BID PRN PRN Reason: Constipation Stop: 10/13/19 17:46 Last Admin: 09/16/19 12:24 Dose: 2 tab Documented by: (1) Pressure ulcer of right hip Pressure injury stage: stage 3 Qualified Code(s): L89.213 - Pressure ulcer of right hip, stage 3 (2) Rhabdomyolysis Encounter type: initial encounter Rhabdomyolysis type: traumatic Qualified Code(s): T79.6XXA - Traumatic ischemia of muscle, initial encounter
[2019-09-21] MEDS: LEVOTHYROXINE SODIUM 100 MCG TABLET PO SCH (06:08)
[2019-09-21] MEDS: CLOPIDOGREL BISULFATE 75 MG TAB PO SCH (08:49)
[2019-09-21] MEDS: PANTOprazole 40 MG TAB PO SCH (08:49)
[2019-09-21] MEDS: ASPIRIN 81 MG ECTAB PO SCH (08:49)
[2019-09-21] MEDS: carvediloL 12.5 MG TAB PO SCH ×2 (08:49→20:11)
[2019-09-21] MEDS: lisinopriL 10 MG TAB PO SCH (08:49)
[2019-09-21] MEDS: HEPARIN SOD 5,000 UNIT/0.5 ML VIAL SQ SCH ×2 (08:50→20:12)
[2019-09-21] MEDS: ACETAMINOPHEN 325 MG TAB PO PRN (15:49)
--- NOTE | 2019-09-21 19:18 | Hospitalist Progress Note ---
Date of Service September 21, 2019 Assessment & Plan (1) Rhabdomyolysis: Nontrumatic rhabdomyolysis present after being found down at home covered in feces. CPK improved with IVF resuscitation. Resolved. (2) Non-ST elevation NM (NSTEMI): Elevated troponin felt to be multifactorial related to hypotension, rhabdomyolysis, acute renal insufficiency and sepsis syndrome. Initial EKGs and presentation was not suspicious for acute coronary syndrome. Echocardiogram demonstrated hypokinesis of the inferior posterior wall at the base with otherwise preserved LV function. cont medical management with beta maco, statin, ASA, Plavix. No further workup per Cardiology this admission. Possible outpatient stress test may be considered. (3) Pressure ulcer of right hip: MSSA per culture results. Wound care evaluated and he did not require debridement. Cont to stay off area. Abx switched to doxycycline. (4) Metabolic encephalopathy: Present initially but now resolved. Pt doesn't remember inciting events leading to hospitalization. (5) Sepsis: 2/2 possible sepsis vs non traumatic rhabdo vs other as patient found down and has no recollection of events. Resolved with resuscitation and antibiotic therapy. Possibly had infected skin wound on toe which has been evaluated by wound care. He is improved with antibiotics. (6) RHONDA (acute kidney injury): resolved (7) Paroxysmal atrial fibrillation: Coreg, Not on anticoagulation at the moment. 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 CHADS VASC is 5 for age, h/o stroke and HTN. Per inpatient cardiology evaluation in 2018, anticoagulation is contraindicated in the setting of multiple falls and a h/o intracranial bleeding. Continue to reassess as outpatient. (8) History of CVA (cerebrovascular accident): Continue aspirin, plavix and atorvastatin per home regimen (9) Hypothyroidism: TSH 0.56 Continue synthroid per home regimen. (10) Hypertension: at goal BP, cont lisinopril. Cont holding Lasix and amlodipine for the time being. Low salt diet. (11) DVT prophylaxis: DNR Heparin SQ Dispo-uncertain. Currently cannot return home as he is alone and doesn't have the physical strength to sit up in bed independently. He has a h/o multiple falls, multiple significant comorbidities and has very poor insight into these issues. He will need significant rehabilitation for physical deconditioning, but is currently refusing SNF placement. He is also requesting I not speak to his family including his niece who was recently caring for him. He appears to be very angry with multiple family members. This request has been obliged, however, this means the OOA needs to be involved to help guide the transition to SNF. It is very high risk for his health for him to go home alone at this time. This has been explained to him daily. Will cont to work with patient and CM to find a good solution. Until then he will remian hospitalized and work with PT and OT towards rehab goals. DO [facility] Hospitalist Admission and Anticipated Discharge Date Admission Date: September 13, 2019 Subjective More calm tonight Tolerating PO Reports working with PT and then was exhausted and slept all afternoon Still reports that he wants to go home with HH for PT No major issues per nursing Case Management working with OOA and with local SNFs to find placement. Review of Systems Review of Systems: All systems reviewed & are unremarkable except as noted in Subjective Physical Exam Physical Exam: CONSTITUTIONAL: WNWD, vitals as above, generally well- appearing EYES: normal conjunctivae, no scleral icterus, left sided facial droop ENT: external ear and nose normal, oropharynx clear, MMM RESPIRATORY: clear to auscultation bilaterally, no crackles, rales or wheezes, normal respiratory effort CARDIOVASCULAR: regular rate and rhythm, 3/6 ZHANE heard throughout the precordium, no gallops or rubs, no JVD, no peripheral edema GASTROINTESTINAL: soft, nontender, nondistended MUSCULOSKELETAL: strength 5/5 throughout, head is normocephalic and atraumatic SKIN: warm and dry NEUROLOGIC: Normal cognition, normal speech, no tremor, clear facial droop present. PSYCHIATRIC: alert cooperative and oriented to person, place and time. Results & Data Results & Data ([facility]) Vital Signs (Past 12 Hours) Vital Signs Temp Pulse Resp BP Pulse Ox 09/21/19 15:49 36.9 C 72 18 107/60 96 09/21/19 08:53 62 Medications Administered Current Inpatient Medications Acetaminophen (Tylenol) 650 mg PO Q4H PRN PRN Reason: Pain or Fever Stop: 10/13/19 19:52 Last Admin: 09/21/19 15:49 Dose: 650 mg Documented by: Aspirin (Ecotrin Ectab) 81 mg PO DAILY [facility] Stop: 10/14/19 08:59 Last Admin: 09/21/19 08:49 Dose: 81 mg Documented by: Atorvastatin Calcium (Lipitor) 40 mg PO HS [facility] Stop: 10/13/19 20:59 Last Admin: 09/20/19 20:16 Dose: 40 mg Documented by: Carvedilol (Coreg) 12.5 mg PO BID [facility] Stop: 10/16/19 09:14 Last Admin: 09/21/19 08:49 Dose: 12.5 mg Documented by: Clopidogrel Bisulfate (Plavix) 75 mg PO DAILY [facility] Stop: 10/14/19 08:59 Last Admin: 09/21/19 08:49 Dose: 75 mg Documented by: Doxycycline Hyclate (Vibramycin) 100 mg PO BID [facility] Stop: 09/28/19 20:59 Heparin Sodium (Porcine) (Heparin Sodium (Porcine)) 5,000 units SQ Q12 [facility] Stop: 10/16/19 20:59 Last Admin: 09/21/19 08:50 Dose: 5,000 units Documented by: Levothyroxine Sodium (Synthroid) 100 mcg PO DAILYBB [facility] Stop: 10/14/19 06:29 Last Admin: 09/21/19 06:08 Dose: 100 mcg Documented by: Lisinopril (Zestril) 10 mg PO DAILY [facility] Stop: 10/20/19 08:59 Last Admin: 09/21/19 08:49 Dose: 10 mg Documented by: Menthol (Nice) 1 tiffanie BUCCAL UD PRN PRN Reason: Cough/ SORE THROAT Stop: 10/15/19 08:32 Pantoprazole Sodium (Protonix) 40 mg PO DAILY [facility]; Protocol Stop: 10/14/19 08:59 Last Admin: 09/21/19 08:49 Dose: 40 mg Documented by: Polyethylene Glycol (Miralax Powder Packet) 17 gm PO DAILY PRN PRN Reason: Constipation Stop: 10/13/19 19:52 Senna/Docusate Sodium (Senokot S) 2 tab PO BID PRN PRN Reason: Constipation Stop: 10/13/19 17:46 Last Admin: 09/16/19 12:24 Dose: 2 tab Documented by: (1) Pressure ulcer of right hip Pressure injury stage: stage 3 Qualified Code(s): L89.213 - Pressure ulcer of right hip, stage 3 (2) Rhabdomyolysis Encounter type: initial encounter Rhabdomyolysis type: traumatic Qualified Code(s): T79.6XXA - Traumatic ischemia of muscle, initial encounter
[2019-09-21] MEDS: ATORVASTATIN 40 MG TAB PO SCH (20:11)
[2019-09-21] MEDS: DOXYCYCLINE HYCLATE 100 MG CAP PO SCH (20:11)
[2019-09-22] MEDS: LEVOTHYROXINE SODIUM 100 MCG TABLET PO SCH (06:08)
[2019-09-22] MEDS: lisinopriL 10 MG TAB PO SCH (09:15)
[2019-09-22] MEDS: DOXYCYCLINE HYCLATE 100 MG CAP PO SCH ×2 (09:15→20:23)
[2019-09-22] MEDS: CLOPIDOGREL BISULFATE 75 MG TAB PO SCH (09:15)
[2019-09-22] MEDS: ASPIRIN 81 MG ECTAB PO SCH (09:15)
[2019-09-22] MEDS: carvediloL 12.5 MG TAB PO SCH ×3 (09:15→22:06)
[2019-09-22] MEDS: PANTOprazole 40 MG TAB PO SCH (09:15)
[2019-09-22] MEDS: HEPARIN SOD 5,000 UNIT/0.5 ML VIAL SQ SCH ×2 (09:17→20:13)
--- NOTE | 2019-09-22 14:23 | Hospitalist Progress Note ---
Date of Service September 22, 2019 Assessment & Plan (1) Physical deconditioning: overall very weak. Cannot perform ADLs independently. Requires rehabilitation at a facility as he lives alone and was found in terrible shape. If he went home at this time, he may as there is no one to care for him, he doesn't demonstrate good insight into his disease process or good judgement. He declines me to get in touch with family to ask if they could help him out. Awaiting OOA evaluation for SNF order. (2) Pressure ulcer of right hip: Wound growing MSSA. Cont doxycycline. Wound care physician following. No debridement of this area needed. Stay off this area. (3) Rhabdomyolysis: Nontrumatic rhabdomyolysis present after being found down at home covered in feces. CPK improved with IVF resuscitation. Resolved. (4) Non-ST elevation [place] (NSTEMI): Elevated troponin felt to be multifactorial related to hypotension, rhabdomyolysis, acute renal insufficiency and sepsis syndrome. Initial EKGs and presentation was not suspicious for acute coronary syndrome. Echocardiogram demonstrated hypokinesis of the inferior posterior wall at the base with otherwise preserved LV function. cont medical management with beta maco, statin, ASA, Plavix. No further workup per Cardiology this admission. Possible outpatient stress test may be considered. (5) Metabolic encephalopathy: Present initially but now resolved. Pt doesn't remember inciting events leading to hospitalization. (6) Sepsis: 2/2 possible sepsis vs non traumatic rhabdo vs other as patient found down and has no recollection of events. Resolved with resuscitation and antibiotic therapy. Possibly had infected skin wound on toe which has been evaluated by wound care. He is improved with antibiotics. (7) RHONDA (acute kidney injury): resolved (8) Paroxysmal atrial fibrillation: Coreg, Not on anticoagulation at the moment. 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 CHADS VASC is 5 for age, h/o stroke and HTN. Per inpatient cardiology evaluation in 2018, anticoagulation is contraindicated in the setting of multiple falls and a h/o intracranial bleeding. Continue to reassess as outpatient. (9) History of CVA (cerebrovascular accident): Continue aspirin, plavix and atorvastatin per home regimen (10) Hypothyroidism: TSH 0.56 Continue synthroid per home regimen (11) Hypertension: Home amlodipine was held in setting of hypotension, lisinopril and daily lasix were also held on admission 2/2 acute kidney injury which is now resolved. Cont lisinopril for now. BP at goal. (12) DVT prophylaxis: DNR Heparin SQ Dispo-to SNF when agreeable and bed opens up. OOA involved per CM. Delmis Palomares DO [facility] Hospitalist Admission and Anticipated Discharge Date Admission Date: September 13, 2019 Subjective no changes today still refuses to get out of bed to try and walk he is OOB to chair tolerating PO denies pain Review of Systems Review of Systems: All systems reviewed & are unremarkable except as noted in Subjective Physical Exam Physical Exam: CONSTITUTIONAL: WNWD, vitals as above, generally well- appearing EYES: pupils are equal and round bilaterally, normal conjunctivae, no scleral icterus, clear left sided facial droop ENT: external ear and nose normal, oropharynx clear, MMM RESPIRATORY: clear to auscultation bilaterally, no crackles, rales or wheezes, normal respiratory effort CARDIOVASCULAR: regular rate and rhythm, 3/6 ZHANE heard throughout the precordium, no gallops or rubs, no JVD, no peripheral edema GASTROINTESTINAL: soft, nontender, nondistended MUSCULOSKELETAL: strength 5/5 throughout, head is normocephalic and atraumatic SKIN: warm and dry, right hip wound covered with Optifoam which was not removed. Scalp wound is closed and well-healing. NEUROLOGIC: Normal cognition, normal speech, no tremor, clear facial droop present. PSYCHIATRIC: alert and oriented, but very angry disposition. Easily agitated. Results & Data Results & Data ([facility]) Vital Signs (Past 12 Hours) Vital Signs Temp Pulse Resp BP Pulse Ox 09/22/19 08:06 36.4 C L 71 18 163/81 H 95 Medications Administered Current Inpatient Medications Acetaminophen (Tylenol) 650 mg PO Q4H PRN PRN Reason: Pain or Fever Stop: 10/13/19 19:52 Last Admin: 09/21/19 15:49 Dose: 650 mg Documented by: Aspirin (Ecotrin Ectab) 81 mg PO DAILY [facility] Stop: 10/14/19 08:59 Last Admin: 09/22/19 09:15 Dose: 81 mg Documented by: Atorvastatin Calcium (Lipitor) 40 mg PO HS [facility] Stop: 10/13/19 20:59 Last Admin: 09/21/19 20:11 Dose: 40 mg Documented by: Carvedilol (Coreg) 12.5 mg PO BID [facility] Stop: 10/16/19 09:14 Last Admin: 09/22/19 09:15 Dose: 12.5 mg Documented by: Clopidogrel Bisulfate (Plavix) 75 mg PO DAILY [facility] Stop: 10/14/19 08:59 Last Admin: 09/22/19 09:15 Dose: 75 mg Documented by: Doxycycline Hyclate (Vibramycin) 100 mg PO BID [facility] Stop: 09/28/19 20:59 Last Admin: 09/22/19 09:15 Dose: 100 mg Documented by: Heparin Sodium (Porcine) (Heparin Sodium (Porcine)) 5,000 units SQ Q12 [facility] Stop: 10/16/19 20:59 Last Admin: 09/22/19 09:17 Dose: 5,000 units Documented by: [facility] Stop: 10/14/19 06:29 Last Admin: 09/22/19 06:08 Dose: 100 mcg Documented by: Lisinopril (Zestril) 10 mg PO DAILY [facility] Stop: 10/20/19 08:59 Last Admin: 09/22/19 09:15 Dose: 10 mg Documented by: Menthol (Nice) 1 tiffanie BUCCAL UD PRN PRN Reason: Cough/ SORE THROAT Stop: 10/15/19 08:32 Pantoprazole Sodium (Protonix) 40 mg PO DAILY [facility]; Protocol Stop: 10/14/19 08:59 Last Admin: 09/22/19 09:15 Dose: 40 mg Documented by: Polyethylene Glycol (Miralax Powder Packet) 17 gm PO DAILY PRN PRN Reason: Constipation Stop: 10/13/19 19:52 Senna/Docusate Sodium (Senokot S) 2 tab PO BID PRN PRN Reason: Constipation Stop: 10/13/19 17:46 Last Admin: 09/16/19 12:24 Dose: 2 tab Documented by: (1) Pressure ulcer of right hip Pressure injury stage: stage 3 Qualified Code(s): L89.213 - Pressure ulcer of right hip, stage 3 (2) Rhabdomyolysis Encounter type: initial encounter Rhabdomyolysis type: traumatic Qualified Code(s): T79.6XXA - Traumatic ischemia of muscle, initial encounter
[2019-09-22] MEDS: ACETAMINOPHEN 325 MG TAB PO PRN (15:31)
[2019-09-22] MEDS ORDERED: ALBUMIN 25% 50 ML with FUROSEMIDE 20 MG IV ONE (20:00)
[2019-09-22] MEDS: ATORVASTATIN 40 MG TAB PO SCH (20:23)
[2019-09-23] MEDS: LEVOTHYROXINE SODIUM 100 MCG TABLET PO SCH (06:09)
[2019-09-23] MEDS: carvediloL 12.5 MG TAB PO SCH ×2 (08:17→21:17)
[2019-09-23] MEDS: CLOPIDOGREL BISULFATE 75 MG TAB PO SCH (08:17)
[2019-09-23] MEDS: lisinopriL 10 MG TAB PO SCH (08:17)
[2019-09-23] MEDS: PANTOprazole 40 MG TAB PO SCH (08:18)
[2019-09-23] MEDS: DOXYCYCLINE HYCLATE 100 MG CAP PO SCH ×2 (08:18→21:21)
[2019-09-23] MEDS: ASPIRIN 81 MG ECTAB PO SCH (08:18)
[2019-09-23] MEDS: HEPARIN SOD 5,000 UNIT/0.5 ML VIAL SQ SCH ×2 (08:19→21:19)
--- NOTE | 2019-09-23 14:49 | Hospitalist Progress Note ---
Date of Service September 23, 2019 Assessment & Plan (1) Physical deconditioning: overall very weak. Cannot perform ADLs independently. Requires rehabilitation at a facility as he lives alone and was found in terrible shape by EMS reportedly covered in feces and the home was a mess. If he went home at this time, he may as there is no one to care for him, he doesn't demonstrate good insight into his disease process or good judgement. He declines me to get in touch with family to ask if they could help him out. Awaiting OOA evaluation for SNF order. (2) Pressure ulcer of right hip: Wound growing MSSA. Cont doxycycline. Wound care physician following. No debridement of this area needed. Stay off this area. (3) Rhabdomyolysis: Nontrumatic rhabdomyolysis present after being found down at home covered in feces. CPK improved with IVF resuscitation. Resolved. (4) Non-ST elevation [place] (NSTEMI): Elevated troponin felt to be multifactorial related to hypotension, rhabdomyolysis, acute renal insufficiency and sepsis syndrome. Initial EKGs and presentation was not suspicious for acute coronary syndrome. Echocardiogram demonstrated hypokinesis of the inferior posterior wall at the base with otherwise preserved LV function. cont medical management with beta maco, statin, ASA, Plavix. No further workup per Cardiology this admission. Possible outpatient stress test may be considered. (5) Sepsis: 2/2 possible sepsis vs non traumatic rhabdo vs other as patient found down and has no recollection of events. Resolved with resuscitation and antibiotic therapy. Possibly had infected skin wound on toe which has been evaluated by wound care. He is improved with antibiotics. (6) Paroxysmal atrial fibrillation: Coreg, Not on anticoagulation at the moment. 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 CHADS VASC is 5 for age, h/o stroke and HTN. Per inpatient cardiology evaluation in 2018, anticoagulation is contraindicated in the setting of multiple falls and a h/o intracranial bleeding. Continue to reassess as outpatient. (7) History of CVA (cerebrovascular accident): Continue aspirin, plavix and atorvastatin per home regimen (8) Hypothyroidism: TSH 0.56 Continue synthroid per home regimen (9) Hypertension: Home amlodipine was held in setting of hypotension, lisinopril and daily lasix were also held on admission 2/2 acute kidney injury which is now resolved. Cont lisinopril for now. BP at goal. (10) DVT prophylaxis: DNR Heparin SQ Dispo-to SNF when agreeable and bed opens up. OOA involved per CM. Delmis Palomares DO [facility] Hospitalist Admission and Anticipated Discharge Date Admission Date: September 13, 2019 Subjective Pt doing well today Denies pain Tolerating PO Still refuses to walk on the tile floor Review of Systems Review of Systems: All systems reviewed & are unremarkable except as noted in Subjective Physical Exam Physical Exam: CONSTITUTIONAL: WNWD, vitals as above, generally well- appearing EYES: pupils are equal and round bilaterally, normal conjunctivae, no scleral icterus, clear left sided facial droop ENT: external ear and nose normal, oropharynx clear, MMM RESPIRATORY: clear to auscultation bilaterally, no crackles, rales or wheezes, normal respiratory effort CARDIOVASCULAR: regular rate and rhythm, 3/6 ZHANE heard throughout the precordium, no gallops or rubs, no JVD, no peripheral edema GASTROINTESTINAL: soft, nontender, nondistended MUSCULOSKELETAL: strength 5/5 throughout, head is normocephalic and atraumatic SKIN: warm and dry, right hip wound covered with Optifoam which was not removed. Scalp wound is closed and well-healing. NEUROLOGIC: Normal cognition, normal speech, no tremor, clear facial droop present. PSYCHIATRIC: alert and oriented, but very angry disposition. Easily agitated. Results & Data Results & Data ([facility]) Vital Signs (Past 12 Hours) Vital Signs Temp Pulse Resp BP Pulse Ox 09/23/19 07:00 36.7 C 64 20 154/61 H 97 Medications Administered Current Inpatient Medications Acetaminophen (Tylenol) 650 mg PO Q4H PRN PRN Reason: Pain or Fever Stop: 10/13/19 19:52 Last Admin: 09/22/19 15:31 Dose: 650 mg Documented by: Aspirin (Ecotrin Ectab) 81 mg PO DAILY [facility] Stop: 10/14/19 08:59 Last Admin: 09/23/19 08:18 Dose: 81 mg Documented by: Atorvastatin Calcium (Lipitor) 40 mg PO HS [facility] Stop: 10/13/19 20:59 Last Admin: 09/22/19 20:23 Dose: 40 mg Documented by: Carvedilol (Coreg) 12.5 mg PO BID [facility] Stop: 10/16/19 09:14 Last Admin: 09/23/19 08:17 Dose: 12.5 mg Documented by: Clopidogrel Bisulfate (Plavix) 75 mg PO DAILY [facility] Stop: 10/14/19 08:59 Last Admin: 09/23/19 08:17 Dose: 75 mg Documented by: Doxycycline Hyclate (Vibramycin) 100 mg PO BID [facility] Stop: 09/28/19 20:59 Last Admin: 09/23/19 08:18 Dose: 100 mg Documented by: Heparin Sodium (Porcine) (Heparin Sodium (Porcine)) 5,000 units SQ Q12 [facility] Stop: 10/16/19 20:59 Last Admin: 09/23/19 08:19 Dose: 5,000 units Documented by: Levothyroxine Sodium (Synthroid) 100 mcg PO DAILYBB [facility] Stop: 10/14/19 06:29 Last Admin: 09/23/19 06:09 Dose: 100 mcg Documented by: Lisinopril (Zestril) 10 mg PO DAILY [facility] Stop: 10/20/19 08:59 Last Admin: 09/23/19 08:17 Dose: 10 mg Documented by: Menthol (Nice) 1 tiffanie BUCCAL UD PRN PRN Reason: Cough/ SORE THROAT Stop: 10/15/19 08:32 Pantoprazole Sodium (Protonix) 40 mg PO DAILY [facility]; Protocol Stop: 10/14/19 08:59 Last Admin: 09/23/19 08:18 Dose: 40 mg Documented by: Polyethylene Glycol (Miralax Powder Packet) 17 gm PO DAILY PRN PRN Reason: Constipation Stop: 10/13/19 19:52 Senna/Docusate Sodium (Senokot S) 2 tab PO BID PRN PRN Reason: Constipation Stop: 10/13/19 17:46 Last Admin: 09/16/19 12:24 Dose: 2 tab Documented by: (1) Pressure ulcer of right hip Pressure injury stage: stage 3 Qualified Code(s): L89.213 - Pressure ulcer of right hip, stage 3 (2) Rhabdomyolysis Encounter type: initial encounter Rhabdomyolysis type: traumatic Qualified Code(s): T79.6XXA - Traumatic ischemia of muscle, initial encounter
[2019-09-23] MEDS: ATORVASTATIN 40 MG TAB PO SCH (21:20)
[2019-09-23] MEDS: ACETAMINOPHEN 325 MG TAB PO PRN (21:26)
[2019-09-24] MEDS: LEVOTHYROXINE SODIUM 100 MCG TABLET PO SCH (06:34)
[2019-09-24] MEDS: carvediloL 12.5 MG TAB PO SCH ×2 (08:28→20:36)
[2019-09-24] MEDS: CLOPIDOGREL BISULFATE 75 MG TAB PO SCH (08:28)
[2019-09-24] MEDS: lisinopriL 10 MG TAB PO SCH (08:28)
[2019-09-24] MEDS: PANTOprazole 40 MG TAB PO SCH (08:29)
[2019-09-24] MEDS: HEPARIN SOD 5,000 UNIT/0.5 ML VIAL SQ SCH ×2 (08:29→20:36)
[2019-09-24] MEDS: DOXYCYCLINE HYCLATE 100 MG CAP PO SCH ×2 (08:29→20:37)
[2019-09-24] MEDS: ASPIRIN 81 MG ECTAB PO SCH (08:29)
--- NOTE | 2019-09-24 13:07 | Hospitalist Progress Note ---
Date of Service September 24, 2019 Assessment & Plan (1) Physical deconditioning: overall very weak, and continues to remain so today. Tolerating PO but cannot ambulate or function independently. Requires rehabilitation at a facility as he lives alone and was found in terrible shape by EMS reportedly covered in feces and the home was a mess. If he went home at this time, he may as there is no one to care for him, he doesn't demonstrate good insight into his disease process or good judgement. He declines me to get in touch with family to ask if they could help him out. Awaiting OOA evaluation for SNF order. (2) Pressure ulcer of right hip: Wound growing MSSA. Cont doxycycline. Wound care physician following. No debridement of this area needed. Stay off this area. (3) Rhabdomyolysis: Nontrumatic rhabdomyolysis present after being found down at home covered in feces. CPK improved with IVF resuscitation. Resolved. (4) Non-ST elevation [place] (NSTEMI): Elevated troponin felt to be multifactorial related to hypotension, rhabdomyolysis, acute renal insufficiency and sepsis syndrome. Initial EKGs and presentation was not suspicious for acute coronary syndrome. Echocardiogram demonstrated hypokinesis of the inferior posterior wall at the base with otherwise preserved LV function. cont medical management with beta maco, statin, ASA, Plavix. No further workup per Cardiology this admission. Possible outpatient stress test may be considered. (5) Sepsis: 2/2 possible sepsis vs non traumatic rhabdo vs other as patient found down and has no recollection of events. Resolved with resuscitation and antibiotic therapy. Possibly had infected skin wound on toe which has been evaluated by wound care. He is improved with antibiotics. (6) Paroxysmal atrial fibrillation: Coreg, Not on anticoagulation at the moment. 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 CHADS VASC is 5 for age, h/o stroke and HTN. Per inpatient cardiology evaluation in 2018, anticoagulation is contraindicated in the setting of multiple falls and a h/o intracranial bleeding. Continue to reassess as outpatient. (7) History of CVA (cerebrovascular accident): Continue aspirin, plavix and atorvastatin per home regimen (8) Hypothyroidism: TSH 0.56 Continue synthroid per home regimen (9) Hypertension: Home amlodipine was held in setting of hypotension, lisinopril and daily lasix were also held on admission 2/2 acute kidney injury which is now resolved. Cont lisinopril for now. BP at goal. (10) DVT prophylaxis: DNR Heparin SQ Dispo-to SNF when agreeable and bed opens up. OOA involved per CM. DO Michelle Schmitt Hospitalist Admission and Anticipated Discharge Date Admission Date: September 13, 2019 Subjective Doing well today Some nonspecific complaints. Not able to sit up in bed independently Denies pain Review of Systems Review of Systems: All systems reviewed & are unremarkable except as noted in Subjective Physical Exam Physical Exam: CONSTITUTIONAL: WNWD, vitals as above, generally well- appearing EYES: pupils are equal and round bilaterally, normal conjunctivae, no scleral icterus, clear left sided facial droop ENT: external ear and nose normal, oropharynx clear, MMM RESPIRATORY: clear to auscultation bilaterally, no crackles, rales or wheezes, normal respiratory effort CARDIOVASCULAR: regular rate and rhythm, 3/6 ZHANE heard throughout the precordium, no gallops or rubs, no JVD, no peripheral edema GASTROINTESTINAL: soft, nontender, nondistended MUSCULOSKELETAL: strength 5/5 throughout, head is normocephalic and atraumatic SKIN: warm and dry, right hip wound covered with Optifoam and Aquacel in place. Appears somewhat opened but difficult to examine because of the location. Scal p wound is closed and well-healing. NEUROLOGIC: Normal cognition, normal speech, no tremor, clear facial droop present. Results & Data Results & Data ([facility]) Vital Signs (Past 12 Hours) Vital Signs Temp Pulse Resp BP Pulse Ox 09/24/19 07:13 36.7 C 57 L 16 117/65 96 Medications Administered Current Inpatient Medications Acetaminophen (Tylenol) 650 mg PO Q4H PRN PRN Reason: Pain or Fever Stop: 10/13/19 19:52 Last Admin: 09/23/19 21:26 Dose: 650 mg Documented by: Aspirin (Ecotrin Ectab) 81 mg PO DAILY [facility] Stop: 10/14/19 08:59 Last Admin: 09/24/19 08:29 Dose: 81 mg Documented by: Atorvastatin Calcium (Lipitor) 40 mg PO HS [facility] Stop: 10/13/19 20:59 Last Admin: 09/23/19 21:20 Dose: 40 mg Documented by: Carvedilol (Coreg) 12.5 mg PO BID [facility] Stop: 10/16/19 09:14 Last Admin: 09/24/19 08:28 Dose: Not Given Documented by: Clopidogrel Bisulfate (Plavix) 75 mg PO DAILY [facility] Stop: 10/14/19 08:59 Last Admin: 09/24/19 08:28 Dose: 75 mg Documented by: Doxycycline Hyclate (Vibramycin) 100 mg PO BID [facility] Stop: 09/28/19 20:59 Last Admin: 09/24/19 08:29 Dose: 100 mg Documented by: Heparin Sodium (Porcine) (Heparin Sodium (Porcine)) 5,000 units SQ Q12 [facility] Stop: 10/16/19 20:59 Last Admin: 09/24/19 08:29 Dose: 5,000 units Documented by: Levothyroxine Sodium (Synthroid) 100 mcg PO DAILYBB [facility] Stop: 10/14/19 06:29 Last Admin: 09/24/19 06:34 Dose: 100 mcg Documented by: Lisinopril (Zestril) 10 mg PO DAILY [facility] Stop: 10/20/19 08:59 Last Admin: 09/24/19 08:28 Dose: 10 mg Documented by: Menthol (Nice) 1 tiffanie BUCCAL UD PRN PRN Reason: Cough/ SORE THROAT Stop: 10/15/19 08:32 Pantoprazole Sodium (Protonix) 40 mg PO DAILY [facility]; Protocol Stop: 10/14/19 08:59 Last Admin: 09/24/19 08:29 Dose: 40 mg Documented by: Polyethylene Glycol (Miralax Powder Packet) 17 gm PO DAILY PRN PRN Reason: Constipation Stop: 10/13/19 19:52 Senna/Docusate Sodium (Senokot S) 2 tab PO BID PRN PRN Reason: Constipation Stop: 10/13/19 17:46 Last Admin: 09/16/19 12:24 Dose: 2 tab Documented by: (1) Pressure ulcer of right hip Pressure injury stage: stage 3 Qualified Code(s): L89.213 - Pressure ulcer of right hip, stage 3 (2) Rhabdomyolysis Encounter type: initial encounter Rhabdomyolysis type: traumatic Qualified Code(s): T79.6XXA - Traumatic ischemia of muscle, initial encounter
--- NOTE | 2019-09-24 15:29 | Wound Progress Note ---
Date of Service September 24, 2019 Assessment & Plan (1) Pressure ulcer of right hip: Wounds improving. No debridement was required. Continue doxycycline. Wounds to be dressed with Aquacel Ag and an OPTi foam. Continue to offload. Patient is stable from a wound standpoint. We will continue to follow. Subjective Patient seen lying in bed with WOCN. Patient without any new complaints. Still feels weak. Review of Systems Review of Systems: All systems reviewed & are unremarkable except as noted in HPI & below Physical Exam Skin: Right elbow measuring as recorded in nursing documentation. Wound is covered with fibrin and slough. There is moderate drainage no foul odors. Posterior scalp wound appears nearly healed. Right hip wound remains erythematous however is clinically improving. No debridement was required. Neurologic: awake; not confused Psychiatric: A+Ox3, euthymic affect Results & Data Vital Signs (Past 12 Hours) Vital Signs Temp Pulse Resp BP BP Pulse Ox 09/24/19 15:20 36.6 C 56 L 18 127/69 94 09/24/19 07:13 36.7 C 57 L 16 117/65 96 PG Care Time/CCT Total # of Minutes Spent Total Time Spent with Patient: Total time spent is greater than 50% in coordination of care (as documented) at patient's floor/unit and/or counseling patient: Coding Level of Care Code 94910 Subseq Hosp Care Lvl 2 Diagnoses Pressure ulcer of right hip L89.213 Pressure injury stage: stage 3 (1) Pressure ulcer of right hip Pressure injury stage: stage 3 Qualified Code(s): L89.213 - Pressure ulcer of right hip, stage 3
[2019-09-24] MEDS: ACETAMINOPHEN 325 MG TAB PO PRN (15:43)
[2019-09-24] MEDS: ATORVASTATIN 40 MG TAB PO SCH (20:37)
[2019-09-25] MEDS: LEVOTHYROXINE SODIUM 100 MCG TABLET PO SCH (05:45)
[2019-09-25] MEDS: DOXYCYCLINE HYCLATE 100 MG CAP PO SCH ×2 (09:08→21:42)
[2019-09-25] MEDS: CLOPIDOGREL BISULFATE 75 MG TAB PO SCH (09:08)
[2019-09-25] MEDS: HEPARIN SOD 5,000 UNIT/0.5 ML VIAL SQ SCH ×2 (09:08→21:43)
[2019-09-25] MEDS: PANTOprazole 40 MG TAB PO SCH (09:08)
[2019-09-25] MEDS: ASPIRIN 81 MG ECTAB PO SCH (09:08)
[2019-09-25] MEDS: lisinopriL 10 MG TAB PO SCH (09:08)
[2019-09-25] MEDS: carvediloL 12.5 MG TAB PO SCH ×2 (09:12→21:35)
[2019-09-25] MEDS: ACETAMINOPHEN 325 MG TAB PO PRN ×2 (15:21→21:29)
--- NOTE | 2019-09-25 17:03 | Hospitalist Progress Note ---
Date of Service September 25, 2019 Assessment & Plan (1) Physical deconditioning: overall very weak, and continues to remain so today. Tolerating PO but cannot ambulate or function independently. Requires rehabilitation at a facility as he lives alone and was found in terrible shape by EMS reportedly covered in feces and the home was a mess. If he went home at this time, he may as there is no one to care for him, he doesn't demonstrate good insight into his disease process or good judgement. He declines me to get in touch with family to ask if they could help him out. Awaiting OOA evaluation for SNF order. (2) Pressure ulcer of right hip: Wound growing MSSA. Cont doxycycline. Wound care physician following. No debridement of this area needed. Stay off this area. (3) Rhabdomyolysis: Nontrumatic rhabdomyolysis present after being found down at home covered in feces. CPK improved with IVF resuscitation. Resolved. (4) Non-ST elevation W[place] (NSTEMI): Elevated troponin felt to be multifactorial related to hypotension, rhabdomyolysis, acute renal insufficiency and sepsis syndrome. Initial EKGs and presentation was not suspicious for acute coronary syndrome. Echocardiogram demonstrated hypokinesis of the inferior posterior wall at the base with otherwise preserved LV function. cont medical management with beta maco, statin, ASA, Plavix. No further workup per Cardiology this admission. Possible outpatient stress test may be considered. (5) Sepsis: 2/2 possible sepsis vs non traumatic rhabdo vs other as patient found down and has no recollection of events. Resolved with resuscitation and antibiotic therapy. Possibly had infected skin wound on toe which has been evaluated by wound care. He is improved with antibiotics. (6) Paroxysmal atrial fibrillation: Coreg, Not on anticoagulation at the moment. 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 CHADS VASC is 5 for age, h/o stroke and HTN. Per inpatient cardiology evaluation in 2018, anticoagulation is contraindicated in the setting of multiple falls and a h/o intracranial bleeding. Continue to reassess as outpatient. (7) History of CVA (cerebrovascular accident): Continue aspirin, plavix and atorvastatin per home regimen (8) Hypothyroidism: TSH 0.56 Continue synthroid per home regimen (9) Hypertension: Home amlodipine was held in setting of hypotension, lisinopril and daily lasix were also held on admission 2/2 acute kidney injury which is now resolved. Cont lisinopril for now. BP at goal. (10) DVT prophylaxis: DNR Heparin SQ Dispo-to SNF when agreeable and bed opens up. OOA involved per CM. DO [facility] Hospitalist Admission and Anticipated Discharge Date Admission Date: September 13, 2019 Subjective doing ok today reports he walked across the tile floor in the room 4 times Praised fr this efforts. Review of Systems Review of Systems: All systems reviewed & are unremarkable except as noted in Subjective Physical Exam Physical Exam: CONSTITUTIONAL: WNWD, vitals as above, generally well- appearing EYES: pupils are equal and round bilaterally, normal conjunctivae, no scleral icterus, clear left sided facial droop ENT: external ear and nose normal, oropharynx clear, MMM RESPIRATORY: clear to auscultation bilaterally, no crackles, rales or wheezes, normal respiratory effort CARDIOVASCULAR: regular rate and rhythm, 3/6 ZHANE heard throughout the precordium, no gallops or rubs, no JVD, no peripheral edema GASTROINTESTINAL: soft, nontender, nondistended MUSCULOSKELETAL: strength 5/5 throughout, head is normocephalic and atraumatic SKIN: warm and dry, right hip wound covered with Optifoam and Aquacel in place. Appears somewhat opened but difficult to examine because of the location. S calp wound is closed and well-healing. NEUROLOGIC: Normal cognition, normal speech, no tremor, clear facial droop present. Results & Data Results & Data ([facility]) Vital Signs (Past 12 Hours) Vital Signs Temp Pulse Resp BP BP Pulse Ox 09/25/19 15:58 36.4 C L 57 L 18 132/67 98 09/25/19 09:11 65 118/55 L 09/25/19 08:27 36.9 C 52 L 18 110/56 L 96 Medications Administered Current Inpatient Medications Acetaminophen (Tylenol) 650 mg PO Q4H PRN PRN Reason: Pain or Fever Stop: 10/13/19 19:52 Last Admin: 09/25/19 15:21 Dose: 650 mg Documented by: Aspirin (Ecotrin Ectab) 81 mg PO DAILY VINAY Stop: 10/14/19 08:59 Last Admin: 09/25/19 09:08 Dose: 81 mg Documented by: Atorvastatin Calcium (Lipitor) 40 mg PO HS [facility] Stop: 10/13/19 20:59 Last Admin: 09/24/19 20:37 Dose: 40 mg Documented by: Carvedilol (Coreg) 12.5 mg PO BID [facility] Stop: 10/16/19 09:14 Last Admin: 09/25/19 09:12 Dose: 12.5 mg Documented by: Clopidogrel Bisulfate (Plavix) 75 mg PO DAILY [facility] Stop: 10/14/19 08:59 Last Admin: 09/25/19 09:08 Dose: 75 mg Documented by: Doxycycline Hyclate (Vibramycin) 100 mg PO BID [facility] Stop: 09/28/19 20:59 Last Admin: 09/25/19 09:08 Dose: 100 mg Documented by: Heparin Sodium (Porcine) (Heparin Sodium (Porcine)) 5,000 units SQ Q12 [facility] Stop: 10/16/19 20:59 Last Admin: 09/25/19 09:08 Dose: 5,000 units Documented by: [facility]othyroxine [facility]) [facility] Stop: 10/14/19 06:29 Last Admin: 09/25/19 05:45 Dose: 100 mcg Documented by: Lisinopril (Zestril) 10 mg PO DAILY [facility] Stop: 10/20/19 08:59 Last Admin: 09/25/19 09:08 Dose: 10 mg Documented by: Menthol (Nice) 1 tiffanie BUCCAL UD PRN PRN Reason: Cough/ SORE THROAT Stop: 10/15/19 08:32 Pantoprazole Sodium (Protonix) 40 mg PO DAILY [facility]; Protocol Stop: 10/14/19 08:59 Last Admin: 09/25/19 09:08 Dose: 40 mg Documented by: Polyethylene Glycol (Miralax Powder Packet) 17 gm PO DAILY PRN PRN Reason: Constipation Stop: 10/13/19 19:52 Senna/Docusate Sodium (Senokot S) 2 tab PO BID PRN PRN Reason: Constipation Stop: 10/13/19 17:46 Last Admin: 09/16/19 12:24 Dose: 2 tab Documented by: (1) Pressure ulcer of right hip Pressure injury stage: stage 3 Qualified Code(s): L89.213 - Pressure ulcer of right hip, stage 3 (2) Rhabdomyolysis Encounter type: initial encounter Rhabdomyolysis type: traumatic Qualified Code(s): T79.6XXA - Traumatic ischemia of muscle, initial encounter
[2019-09-25] MEDS: ATORVASTATIN 40 MG TAB PO SCH (21:43)
[2019-09-26] MEDS: LEVOTHYROXINE SODIUM 100 MCG TABLET PO SCH (05:51)
[2019-09-26] MEDS: HEPARIN SOD 5,000 UNIT/0.5 ML VIAL SQ SCH ×2 (08:00→21:20)
--- NOTE | 2019-09-26 08:11 | Hospitalist Progress Note ---
Date of Service September 26, 2019 Assessment & Plan (1) Physical deconditioning: Weak. Tolerating PO but cannot ambulate or function independently. Requires rehabilitation at a facility as he lives alone and was found in terrible shape by EMS reportedly covered in feces and the home was a mess. If he went home at this time, he may as there is no one to care for him, he doesn't demonstrate good insight into his disease process or good judgement. Awaiting OOA evaluation for SNF order. Needs another COVID test to go to [facility] (2) Pressure ulcer of right hip: Wound growing MSSA. Cont doxycycline. Wound care physician following. No debridement of this area needed. Stay off this area. (3) Rhabdomyolysis: Nontrumatic rhabdomyolysis present after being found down at home covered in fe reba. CPK improved with IVF resuscitation. Resolved. (4) Non-ST elevation [place] (NSTEMI): Elevated troponin felt to be multifactorial related to hypotension, rhabdomyolysis, acute renal insufficiency and sepsis syndrome. Initial EKGs and presentation was not suspicious for acute coronary syndrome. Echocardiogram demonstrated hypokinesis of the inferior posterior wall at the base with otherwise preserved LV function. cont medical management with beta maco, statin, ASA, Plavix. No further workup per Cardiology this admission. Possible outpatient stress test may be considered. (5) Sepsis: 2/2 possible sepsis vs non traumatic rhabdo vs other as patient found down and has no recollection of events. Resolved with resuscitation and antibiotic therapy. Possibly had infected skin wound on toe which has been evaluated by wound care. He is improved with antibiotics. (6) Paroxysmal atrial fibrillation: Coreg, Not on anticoagulation 2/2 falls and ICH in the past. CHADS VASC is 5 for age, h/o stroke and HTN. Per inpatient cardiology evaluation in 2018, anticoagulation is contraindicated in the setting of multiple falls and a h/o intracranial bleeding. (7) History of CVA (cerebrovascular accident): Continue aspirin, plavix and atorvastatin per home regimen (8) Hypothyroidism: TSH 0.56 Continue synthroid per home regimen (9) Hypertension: Home amlodipine was held in setting of hypotension, lisinopril and daily lasix were also held on admission 2/2 acute kidney injury which is now resolved. Cont lisinopril for now. BP at goal. (10) DVT prophylaxis: DNR Heparin SQ Dispo-to SNF-[facility] when repeat Covid Neg. OOA involved per CM. ROS-No Headache, No Visual Changes, No Nausea, No Vomiting, No Fever, No Chills, No Neck Pain or Stiffness, No Chest Pain, No Palpitations, No SOB, No OLIVARES, No Cough, No Sputum, No Wheezing, No Abdominal Pain, No Diarrhea, No Hematemesis, No Hemoptysis, No Unexpected Weight Loss, No Flank pain, No Melena, No Hematochezia, No Frequency, No Urgency, No Burning, No Hematuria, No Rashes, No Diaphoresis. Appetite is Normal Physical Exam Gen-AAO x 3, NAD, Afebrile Head-NCAT, EOMI, PERRLA, Anicteric Sclera, No Posterior Pharyngeal Erythema Neck-Supple, No JVD, No Thyromegaly, No Masses, No LAD, No Bruits Lungs-Clear to Auscultation Bilaterally, No Rales, No Rhonchi, No Wheezing, No Crepitus Chest-No S4, +S1, +S2, No S3, +3/6 ZHANE, No Rubs, No Gallops, No Ectopy Abdomen-Soft, Bowel Sounds Present, Non Tender, Non Distended, No Hepatomegaly, No Splenomegaly, No Palpable Masses, No Rebound, No Rigidity, No Guarding Musculoskeletal-Full Range of Motion Bilaterally, No CVAT Extremities-No Cyanosis, No Clubbing, No Edema, Hip wound dressed on right. Nuero-L Facial, Motor WNL, DTRs WNL, Strength WNL Psych-Normal Mood . Admission and Anticipated Discharge Date Admission Date: September 13, 2019 Results & Data Results & Data ([facility]) Vital Signs (Past 12 Hours) Vital Signs Temp Pulse Resp BP Pulse Ox 09/26/19 07:51 36.4 C L 61 16 132/70 98 09/25/19 23:15 36.4 C L 58 L 20 120/70 97 (1) Pressure ulcer of right hip Pressure injury stage: stage 3 Qualified Code(s): L89.213 - Pressure ulcer of right hip, stage 3 (2) Rhabdomyolysis Encounter type: initial encounter Rhabdomyolysis type: traumatic Qualified Code(s): T79.6XXA - Traumatic ischemia of muscle, initial encounter
[2019-09-26] MEDS: DOXYCYCLINE HYCLATE 100 MG CAP PO SCH ×2 (08:50→21:20)
[2019-09-26] MEDS: carvediloL 12.5 MG TAB PO SCH ×2 (08:50→21:19)
[2019-09-26] MEDS: PANTOprazole 40 MG TAB PO SCH (08:50)
[2019-09-26] MEDS: CLOPIDOGREL BISULFATE 75 MG TAB PO SCH (08:50)
[2019-09-26] MEDS: lisinopriL 10 MG TAB PO SCH (08:50)
[2019-09-26] MEDS: ASPIRIN 81 MG ECTAB PO SCH (08:50)
[2019-09-26] MEDS: ACETAMINOPHEN 325 MG TAB PO PRN ×2 (08:54→21:11)
[2019-09-26] MEDS: ATORVASTATIN 40 MG TAB PO SCH (21:19)
[2019-09-27] MEDS: LEVOTHYROXINE SODIUM 100 MCG TABLET PO SCH (05:36)
--- NOTE | 2019-09-27 07:36 | Discharge Summary ---
Date of Service September 27, 2019 Admission HPI Per Admitting Provider 78-year-old man with history of proximal A. 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 Patient is currently confused. History obtained from chart review, other healthcare providers, nieces report. Patient was reportedly found down at home this morning confused. Last seen well yesterday. Home reported to be in deplorable state with patient covered in feces and urine. EMS reported patient was found on the floor. Patient unable to provide any coherent history. He is currently awake, alert and oriented to person and place but confused. Does appear to have some dysphasia(appears chronic per review and reports) Primary Care Provider: NO PCP Admission Exam Per Admitting Provider Constitutional: + ill appearing (chronic); no acute distress ENMT: Dysphasic. Left facial asymetry Respiratory: normal respiratory effort, lungs clear to auscultation Cardiovascular: Rate/Rhythm: regular rate and regular rhythm Heart Sounds: normal S1 and normal S2 Extremities: + pedal edema (Right >>Left) Gastrointestinal (Abdomen): normal bowel sounds, soft, nontender, no hepatosplenomegaly Musculoskeletal: Right leg edema and mild tenderness Skin: Could not assess patient's hip and back. Patient could not move himself and was very difficult turning him to evaluate this. RN later reported patient has a right sided ulcer. Abrasions on both feet. 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 Poor insight. Left facial asymmetry. Power is 4/5 on UE and 4/5 in LLE, 3/5 in RLE Psychiatric: Orientation: alert Confused Principal Diagnosis (1) Physical deconditioning: (2) Pressure ulcer of right hip: (3) Rhabdomyolysis: (4) Non-ST elevation [place] (NSTEMI): (5) Sepsis: (6) Paroxysmal atrial fibrillation: (7) History of CVA (cerebrovascular accident): (8) Hypothyroidism: (9) Hypertension: Discharge Exam See below Discharge Data Allergies Allergy/AdvReac Type Severity Reaction Status Date / Time Benzodiazepines Allergy Unknown UNNKNOWN Verified 04/23/17 17:04 Penicillins Allergy Unknown RASH Verified 04/23/17 17:05 Consultations 09/13/19 16:08 ED Decision to Admit Stat 09/13/19 17:46 Consult Cardiology Routine 09/13/19 19:53 Consult Case Management - Discharge Planning Routine 09/14/19 13:22 Consult Wound Care Provider Routine Ordered Studies 09/13/19 12:54 CT cervical spine wo con Stat CT head/brain wo con Stat 09/13/19 19:53 US venous doppler LE RT Urgent Current Diagnoses Sepsis, unspecified organism (09/13/19) Hypothyroidism, unspecified (09/13/19) Type 2 diabetes mellitus without complications (09/13/19) Dehydration (09/13/19) Metabolic encephalopathy (09/13/19) Essential (primary) hypertension (09/13/19) Non-ST elevation (NSTEMI) myocardial infarction (09/13/19) Paroxysmal atrial fibrillation (09/13/19) Pressure ulcer of right hip, stage 3 (09/13/19) Acute kidney failure, unspecified (09/13/19) Disorder of kidney and ureter, unspecified (09/13/19) Disorientation, unspecified (09/13/19) Fever, unspecified (09/13/19) Other malaise (09/13/19) Severe sepsis without septic shock (09/13/19) Other specified abnormal findings of blood chemistry (09/13/19) Traumatic ischemia of muscle, initial encounter (09/13/19) Encounter for prophylactic measures, unspecified (09/13/19) Personal history of transient ischemic attack (TIA), and cerebral infarction without residual deficits (09/13/19) Allergies Benzodiazepines Allergy (Unknown, Verified 04/23/17 17:04) UNNKNOWN Penicillins Allergy (Unknown, Verified 04/23/17 17:05) RASH Height/Weight/Isolation Height 6 ft Weight 101.8 kg Isolation Type Contact Precautions Hospital Course (1) Physical deconditioning: Weak. Tolerating PO but cannot ambulate or function independently. Requires rehabilitation at a facility as he lives alone and was found in terrible shape by EMS reportedly covered in feces and the home was a mess. If he went home at this time, he may as there is no one to care for him, he doesn't demonstrate good insight into his disease process or good judgement. Awaiting OOA evaluation for SNF order. COVID test to go to [facility] today-can be pending (2) Pressure ulcer of right hip: Wound growing MSSA. Cont doxycycline. Wound care physician following. No debridement of this area needed. Stay off this area. (3) Rhabdomyolysis: Nontrumatic rhabdomyolysis present after being found down at home covered in feces. CPK improved with IVF resuscitation. Resolved. (4) Non-ST elevation NJ (NSTEMI): Elevated troponin felt to be multifactorial related to hypotension, rhabdomyolysis, acute renal insufficiency and sepsis syndrome. Initial EKGs and presentation was not suspicious for acute coronary syndrome. Echocardiogram demonstrated hypokinesis of the inferior posterior wall at the base with otherwise preserved LV function. cont medical management with beta maco, sta tin, ASA, Plavix. No further workup per Cardiology this admission. Possible outpatient stress test may be considered. (5) Sepsis: 2/2 possible sepsis vs non traumatic rhabdo vs other as patient found down and has no recollection of events. Resolved with resuscitation and antibiotic therapy. Possibly had infected skin wound on toe which has been evaluated by wound care. He is improved with antibiotics. (6) Paroxysmal atrial fibrillation: Coreg, Not on anticoagulation 2/2 falls and ICH in the past. CHADS VASC is 5 for age, h/o stroke and HTN. Per inpatient cardiology evaluation in 2018, anticoagulation is contraindicated in the setting of multiple falls and a h/o intracranial bleeding. (7) History of CVA (cerebrovascular accident): Continue aspirin, plavix and atorvastatin per home regimen (8) Hypothyroidism: TSH 0.56 Continue synthroid per home regimen (9) Hypertension: Home amlodipine was held in setting of hypotension, lisinopril and daily lasix were also held on admission 2/2 acute kidney injury which is now resolved. Cont lisinopril for now. BP at goal. (10) DVT prophylaxis: DNR Heparin SQ Dispo-to SNF-[facility] today. OOA involved per CM. ROS-No Headache, No Visual Changes, No Nausea, No Vomiting, No Fever, No Chills, No Neck Pain or Stiffness, No Chest Pain, No Palpitations, No SOB, No OLIVARES, No Cough, No Sputum, No Wheezing, No Abdominal Pain, No Diarrhea, No Hematemesis, No Hemoptysis, No Unexpected Weight Loss, No Flank pain, No Melena, No Hematochezia, No Frequency, No Urgency, No Burning, No Hematuria, No Rashes, No Diaphoresis. Appetite is Normal Physical Exam Gen-AAO x 3, NAD, Afebrile Head-NCAT, EOMI, PERRLA, Anicteric Sclera, No Posterior Pharyngeal Erythema Neck-Supple, No JVD, No Thyromegaly, No Masses, No LAD, No Bruits Lungs-Clear to Auscultation Bilaterally, No Rales, No Rhonchi, No Wheezing, No Crepitus Chest-No S4, +S1, +S2, No S3, +3/6 ZHANE, No Rubs, No Gallops, No Ectopy Abdomen-Soft, Bowel Sounds Present, Non Tender, Non Distended, No Hepatomegaly, No Splenomegaly, No Palpable Masses, No Rebound, No Rigidity, No Guarding Musculoskeletal-Full Range of Motion Bilaterally, No CVAT Extremities-No Cyanosis, No Clubbing, No Edema, Hip wound dressed on right. Nuero-L Facial, Motor WNL, DTRs WNL, Strength WNL Psych-Normal Mood . Total Time Total Time Spent Total Time Spent (In Minutes): 45 mins Total Time Includes: Examination of the Patient, Discharge Planning, Medication Reconciliation and Communication With Other Providers Discharge Plan Discharge Items Patient Disposition: Transfer Long Term Fac Reason For Visit: PUI, SEPSIS, NSTEMI, RHABDO Discharge Diagnosis: Acute kidney injury Rhabdomyolysis Sepsis NSTEMI (1) Physical deconditioning: (2) Pressure ulcer of right hip: (3) Rhabdomyolysis: (4) Non-ST elevation NJ (NSTEMI): (5) Sepsis: (6) Paroxysmal atrial fibrillation: (7) History of CVA (cerebrovascular accident): (8) Hypothyroidism: (9) Hypertension: Condition on Discharge: Serious Activity: Per Instructions section Activity Comment: Physical therapy instructions Non-emergency contact: Primary Care Provider Call non-emergency contact if: you have any medication questions Follow-up/Referrals: PCP,NO [Primary Care Provider] - Diet: Heart Healthy Addtl Attending Provider Instructions: Mr Nolasco. You were brought to the hospital after being found down for unknown length of time. You were evaluated and treated for the above diagnoses. You are feeling better. However, you do need some rehab. You are being discharged to Long Term facility for rehab. It was a pleasure taking care of you. Pending Studies at Discharge: No Stand-Alone Forms: [facility] Skilled Items Patient informed of condition?: Yes DNR: Yes Discharge Level of Care: Skilled Communicable Disease: No Discharge Prognosis: Stable Lines: None Urinary Catheter: No Medications and DC Order Prescriptions: No Action atorvastatin 40 mg tablet 40 mg PO HS RF: 0 carvedilol 12.5 mg tablet 12.5 mg PO BID RF: 0 amlodipine 2.5 mg tablet 2.5 mg PO DAILY RF: 0 clopidogrel 75 mg tablet 75 mg PO DAILY RF: 0 aspirin 81 mg tablet,delayed release (DR/EC) 81 mg PO DAILY RF: 0 levothyroxine 100 mcg tablet 100 mcg PO DAILY RF: 0 lisinopril 10 mg tablet 10 mg PO DAILY RF: 0 omeprazole 20 mg capsule,delayed release(DR/EC) 20 mg PO DAILY RF: 0 furosemide 20 mg tablet 20 mg PO DAILY RF: 0 sennosides-docusate sodium [Senna-S] 8.6-50 mg Tablet 2 tab PO BID PRN (Reason: Constipation) RF: 0 Discharge Orders: Discharge Order (Routine); Ordered 09/27/19 Ordered By: Manuel Andre Admission Data Admit Date/Time: 09/13/19 17:45 Attending Provider: Manuel Andre Admit Provider: Jaleesa Payan I. Primary Care Provider: PCP,NO Other Providers: [facility] ; [facility] ; [facility] ; [facility] ; Benoit Kincaid ; Yonny Child ; Reece Tillman
[2019-09-27] MEDS: HEPARIN SOD 5,000 UNIT/0.5 ML VIAL SQ SCH (09:24)
[2019-09-27] MEDS: carvediloL 12.5 MG TAB PO SCH (09:29)
[2019-09-27] MEDS: ASPIRIN 81 MG ECTAB PO SCH (09:30)
[2019-09-27] MEDS: PANTOprazole 40 MG TAB PO SCH (09:31)
[2019-09-27] MEDS: DOXYCYCLINE HYCLATE 100 MG CAP PO SCH (09:31)
[2019-09-27] MEDS: CLOPIDOGREL BISULFATE 75 MG TAB PO SCH (09:31)
[2019-09-27] MEDS: lisinopriL 10 MG TAB PO SCH (09:32)
[2019-09-27] MEDS: ACETAMINOPHEN 325 MG TAB PO PRN (09:32)
--- NOTE | 2019-10-03 13:57 | Wound Consultation ---
Date of Consultation September 17, 2019 Assessment & Plan (1) Pressure ulcer of right hip: This is a 1-year-old male with numerous wounds secondary to a fall. No debridement was required today. Wound to the head, right elbow, right hip and great toe were dressed with OPTi foam. Wound culture was obtained from the right hip. We will continue to follow the patient. Thank you for limited to spent in the care of this patient. Please do not hesitate to call with any questions. History of Present Illness Reason for Consultation: Numerous wounds Attending Physician: Manuel Andre DO History of Present Illness I am dictating this dictation of consult that had initially occurred on September 16. Consultation was accidentally deleted. This is an 79-year-old male with past medical history of CVA,Paroxysmal atrial fibrillation, hypothyroidism, NSTEMI, diabetes, hypertension and dyslipidemia who was admitted with altered mental status and likely sepsis with underlying rhabdomyolysis. Patient has numerous wounds. Allergies Allergy/AdvReac Type Severity Reaction Status Date / Time Benzodiazepines Allergy Unknown [email or web address] Verified 04/23/17 17:04 Penicillins Allergy Unknown RASH Verified 04/23/17 17:05 Home Medications Home Medications Medication Instructions Recorded Confirmed Type amlodipine 2.5 mg PO DAILY 09/13/19 09/13/19 History aspirin 81 mg PO DAILY 09/13/19 09/13/19 History atorvastatin 40 mg PO HS 09/13/19 09/13/19 History carvedilol 12.5 mg PO BID 09/13/19 09/13/19 History clopidogrel 75 mg PO DAILY 09/13/19 09/13/19 History furosemide 20 mg PO DAILY 09/13/19 09/13/19 History levothyroxine 100 mcg PO DAILY 09/13/19 09/13/19 History lisinopril 10 mg PO DAILY 09/13/19 09/13/19 History omeprazole 20 mg PO DAILY 09/13/19 09/13/19 History sennosides-docusate sodium 2 tab PO BID PRN 09/13/19 09/13/19 History [Senna-S] Patient History Medical History Contraindication to anticoagulation therapy 2/2 frequent falls, non-compliance 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 History of CVA (cerebrovascular accident) 2012 septal lobe CVA, 2018 L frontal lobe Hypertension (Chronic) Hypothyroidism (Chronic) Paroxysmal atrial fibrillation Surgical History Cataract H/O mastoidectomy Family History Other Heart disease Social History Smoking Status: Unknown if ever smoked Hx Alcohol Use: No Hx Substance Use: No Preferred Language: [place] Communication Ability: Impaired Donor Relations Associate Required: No Current Living Situation: Alone Feels Safe at Home: Yes Review of Systems Review of Systems: All systems reviewed & are unremarkable except as noted in HPI & below Physical Exam Constitutional: WD/WN, vitals as above Eyes: PERRL, conjunctivae normal, anicteric sclerae Skin: Patient with wounds of posterior head, right great toe and right hip. They are measuring as recorded in nursing documentation. Patient also with a superficial wound of his right elbow. Posterior scalp appears nearly healed. There is still some fibrin and slough. Right hip is erythematous with mild sloughing. Toes covered with fibrin and slough. Neurologic: awake and + confused Psychiatric: Orientation: oriented to person, oriented to place, oriented to time and cooperative PG Care Time/CCT Total # of Minutes Spent Total Time Spent with Patient: Total time spent is greater than 50% in coordination of care (as documented) at patient's floor/unit and/or counseling patient: Coding Level of Care Code 45639 Inpt Consult Level 3 Diagnoses Pressure ulcer of right hip L89.213 Pressure injury stage: stage 3 (1) Pressure ulcer of right hip Pressure injury stage: stage 3 Qualified Code(s): L89.213 - Pressure ulcer of right hip, stage 3
== END 2019-09-27 16:33 | DRG 871 ==
LOC: ED 12:12 → SUATTDRO 17:45 → 2S 17:45 → 2N 09-19 23:51 → 3E 09-25 00:27